=== PATIENT | male | born 1960 | race Two or more races ===

== ENCOUNTER 2017-11-24 14:17 | Inpatient (IN) | payer BC ==
[~2017-11-24] VITALS: Ht 165.1 cm; Wt 75.9 kg
[2017-11-24 14:30] VITALS: BP 135/82
[2017-11-24 14:49] VITALS: BP 135/82
[2017-11-24] MEDS ORDERED: NICOTINE 21MG/24 HR TOPICAL PATCH TD ONE (15:00)
[2017-11-24] MEDS ORDERED: NITROGLYCERIN 0.4 MG SL TAB SL PRN (15:00)
[2017-11-24] MEDS ORDERED: MORPHINE SULFATE 4 MG/ML SYR/VIAL IV PRN (15:00)
[2017-11-24 16:39] VITALS: BP 114/60
[2017-11-24] MEDS ORDERED: LEVOFLOXACIN 500MG 100 ML IV ONE (16:45)
[2017-11-24] MEDS: ALBUTEROL SULF 2.5 MG/0.5ML(0.5%) NEB SOLN NEB SCH (18:00)
[2017-11-24] MEDS: IPRATROPIUM BROM 0.5 MG/2.5ML INH SOL NEB SCH (18:00)
[2017-11-24] MEDS: methylPREDNISolone SOD SUCC 40 MG/ML VL IV SCH (21:44)
[2017-11-24 21:56] VITALS: BP 126/61
[2017-11-24] MEDS ORDERED: ACETAMINOPHEN 325 MG TAB PO ONE (22:15)
[2017-11-24] MEDS ORDERED: TEMAZEPAM 15 MG CAP PO ONE (22:15)
[2017-11-25] MEDS: IPRATROPIUM BROM 0.5 MG/2.5ML INH SOL NEB SCH ×4 (00:53→18:05)
[2017-11-25] MEDS: ALBUTEROL SULF 2.5 MG/0.5ML(0.5%) NEB SOLN NEB SCH ×4 (00:53→18:05)
[2017-11-25] MEDS ORDERED: VANCOMYCIN 1GM/250ML 250 ML IV ONE ×3 (01:00→10:00)
[2017-11-25 03:22] VITALS: BP 114/60
[2017-11-25 05:21] VITALS: BP 118/60
[2017-11-25 06:46] LABS: Hemoglobin 15.1 g/dL (13.5-17.5); Mean Corpuscular Hemoglobin 29.7 pg (28.0-32.0); Mean Corpuscular Hgb Conc. 33.6 g/dL (32.0-36.0); Mean Corpuscular Volume 88.2 fL (80.0-100.0); Platelet Count (auto) 230 10^3/uL (140-450); Red Cell Distribution Width 14.5 % (11.8-14.3); White Blood Cell 5.8 10^3/uL (4.4-10.8)
[2017-11-25 06:49] LABS: Calcium 8.5 mg/dL (8.5-10.1); Potassium 3.7 mmol/L (3.5-5.1)
[2017-11-25 06:57] LABS: Basophils % (manual) 0 (0.0-2.0); Blast Cells 0; Eosinophils % (manual) 0 (0-7); Metamyelocytes % 0; Myelocytes % 0; Promyelocytes % 0; Reactive Lymphocytes 0
[2017-11-25 06:59] LABS: BUN/Creatinine Ratio 14.1
[2017-11-25 08:03] LABS: Band Neutrophils % (manual) 3; Lymphocytes % (manual) 18 (10.0-50.0); Monocytes % (manual) 10 (0-12)
[2017-11-25] MEDS: NICOTINE 21MG/24 HR TOPICAL PATCH TD SCH (09:29)
[2017-11-25] MEDS: methylPREDNISolone SOD SUCC 40 MG/ML VL IV SCH ×2 (09:29→21:51)
[2017-11-25] MEDS: LEVOFLOXACIN 500MG 100 ML IV SCH (09:29)
[2017-11-25 09:40] VITALS: BP 115/70
[2017-11-25 13:00] VITALS: BP 131/95
[2017-11-25 16:19] VITALS: BP 126/68
[2017-11-25 17:42] LABS: INR 1.31 (0.9-1.15); Prothrombin Time 14.3 sec (9.37-12.3)
[2017-11-25 19:25] LABS: Urine Bacteria NONE SEEN /hpf (None Seen); Urine Blood Negative /uL (Negative); Urine Mucus FEW (None Seen); Urine Specific Gravity 1.029 (1.001-1.035); Urine WBC 4 /hpf (0 - 3)
[2017-11-25 21:41] VITALS: BP 129/73
[2017-11-25] MEDS: TEMAZEPAM 15 MG CAP PO PRN (21:52)
[2017-11-26 04:34] VITALS: BP 148/78
[2017-11-26] MEDS: ALBUTEROL SULF 2.5 MG/0.5ML(0.5%) NEB SOLN NEB SCH ×5 (07:03→19:24)
[2017-11-26] MEDS: IPRATROPIUM BROM 0.5 MG/2.5ML INH SOL NEB SCH ×5 (07:03→19:24)
[2017-11-26 07:40] VITALS: BP 127/73
[2017-11-26] MEDS ORDERED: IODIXANOL 320MG/ML 100ML BTL IV ONE (07:41)
[2017-11-26] MEDS ORDERED: LIDOCAINE HCL 2 %PF INJ 10ML AMP IJ ONE (07:41)
[2017-11-26] MEDS ORDERED: MIDAZOLAM HCL 1MG/1ML-2 ML VIAL ONE (08:31)
[2017-11-26] MEDS ORDERED: fentaNYL CITRATE 100 MCG/2 ML VL ONE (08:31)
[2017-11-26] MEDS ORDERED: SODIUM CHL 0.9% 0 ML ONE (08:32)
[2017-11-26] MEDS ORDERED: ANGIOMAX 250 MG VIAL IV ONE (08:36)
[2017-11-26] MEDS: NICOTINE 21MG/24 HR TOPICAL PATCH TD SCH (10:00)
[2017-11-26] MEDS: LEVOFLOXACIN 500MG 100 ML IV SCH (10:32)
[2017-11-26] MEDS: methylPREDNISolone SOD SUCC 40 MG/ML VL IV SCH ×2 (10:32→21:53)
[2017-11-26 12:31] VITALS: BP 140/81
[2017-11-26 17:10] VITALS: BP 150/85
[2017-11-26] MEDS: ACETAMINOPHEN 325 MG TAB PO PRN (17:58)
[2017-11-26] MEDS: TEMAZEPAM 15 MG CAP PO PRN (21:53)
[2017-11-26 22:00] VITALS: BP 145/86
[2017-11-27 05:00] VITALS: BP 135/88
[2017-11-27] MEDS: IPRATROPIUM BROM 0.5 MG/2.5ML INH SOL NEB SCH ×3 (06:12→13:00)
[2017-11-27] MEDS: ALBUTEROL SULF 2.5 MG/0.5ML(0.5%) NEB SOLN NEB SCH ×3 (06:12→13:00)
[2017-11-27 08:00] VITALS: BP 131/60
[2017-11-27 09:00] VITALS: BP_SYST 131
[2017-11-27] MEDS: methylPREDNISolone SOD SUCC 40 MG/ML VL IV SCH (09:16)
[2017-11-27] MEDS: ACETAMINOPHEN 325 MG TAB PO PRN (09:17)
[2017-11-27] MEDS: LEVOFLOXACIN 500MG 100 ML IV SCH (09:18)
[2017-11-27] MEDS: NICOTINE 21MG/24 HR TOPICAL PATCH TD SCH (09:31)
[2017-11-27 13:00] VITALS: BP 152/99
[2017-11-27 14:28] VITALS: BP 152/99
[2017-12-10] MEDS ORDERED: TEMA30CA PO (02:18)
[2017-12-10] MEDS ORDERED: GABA100C9 PO (02:18)
[2017-12-10] MEDS ORDERED: ALPR0.25 GT (02:19)
== END 2017-11-27 15:30 | disposition home or self-care (01) | DRG 181 ==
LOC: TELE-EAST 14:17
PROVIDERS: ADMIT Internal Medicine Cardiovascular Disease; ATTEND Internal Medicine Cardiovascular Disease
PROC: 4A023N7 Measurement of Cardiac Sampling and Pressure, Left Heart, Percutaneous Approach (ICD-10-PCS; principal; 2017-11-26)
PROC: B2111ZZ Fluoroscopy of Multiple Coronary Arteries using Low Osmolar Contrast (ICD-10-PCS; 2017-11-26)
PROC: B2151ZZ Fluoroscopy of Left Heart using Low Osmolar Contrast (ICD-10-PCS; 2017-11-26)
PROC: B41J1ZZ Fluoroscopy of Other Lower Arteries using Low Osmolar Contrast (ICD-10-PCS; 2017-11-26)
DX: C34.90 Malignant neoplasm of unspecified part of unspecified bronchus or lung (principal); E87.1 Hypo-osmolality and hyponatremia; E78.5 Hyperlipidemia, unspecified; I10 Essential (primary) hypertension; I25.10 Atherosclerotic heart disease of native coronary artery without angina pectoris; I73.9 Peripheral vascular disease, unspecified; J20.9 Acute bronchitis, unspecified; J43.9 Emphysema, unspecified; F17.200 Nicotine dependence, unspecified, uncomplicated
CPT/HCPCS: 36415; 71045; 71260; 80048; 81001; 83935; 85007; 85027; 85610; 86850; 86900; 86901; 87040; 93005; 93458; 94640; 99152; J1956; J2250; Q9967

== ENCOUNTER → 2017-11-24 | Outpatient (CLI) | payer BC ==
[~2017-11-24] MED LIST: ALPR0.25 GT; GABA100C9 PO; IOHEXOL 300 MG/ML 100ML BOTTLE IJ ONE; TEMA30CA PO
[2017-11-24 16:15] LABS: Basophils # (auto) 0.1 uL; Basophils % (auto) 0.8 % (0.0-2.0); Eosinophils # (auto) 0 uL; Eosinophils % (auto) 0.1 % (0.0-7.0); Hematocrit 43.4 % (41.0-53.0); Hemoglobin 14.6 g/dL (13.5-17.5); Lymphocytes # (auto) 1.3 uL; Lymphocytes % (auto) 13.4 % (10.0-50.0); Mean Corpuscular Hemoglobin 29.8 pg (28.0-32.0); Mean Corpuscular Hgb Conc. 33.6 g/dL (32.0-36.0); Mean Corpuscular Volume 88.6 fL (80.0-100.0); Monocytes # (auto) 1.5 uL; Monocytes % (auto) 14.6 % (0.0-12.0); Neutrophils # (auto) 7.1 uL; Neutrophils % (auto) 71.1 % (37.0-80.0); Nucleated Red Blood Cells % 0.1 %; Platelet Count (auto) 247 10^3/uL (140-450); Red Cell Distribution Width 14.2 % (11.8-14.3)
[2017-11-24 16:16] LABS: Albumin 2.6 g/dL (3.4-5.0); BUN/Creatinine Ratio 10.1; Bilirubin, Direct 0.9 mg/dL (0-0.2); Bilirubin, Total 1.4 mg/dL (0.2-1.0); Calcium 7.9 mg/dL (8.5-10.1); Potassium 3.5 mmol/L (3.5-5.1); Total Protein 6.5 g/dL (6.4-8.2)
== END | disposition home or self-care (01) ==
LOC: Rad HDHVI 11:36
PROVIDERS: ATTEND Internal Medicine Cardiovascular Disease
DX: I70.0 Atherosclerosis of aorta (principal); I10 Essential (primary) hypertension; E78.5 Hyperlipidemia, unspecified; D64.9 Anemia, unspecified; E03.9 Hypothyroidism, unspecified; E11.9 Type 2 diabetes mellitus without complications; K74.1 Hepatic sclerosis
CPT/HCPCS: 36415; 71046; 80048; 80061; 80076; 83036; 84443; 85025; Q9967

== ENCOUNTER → 2017-12-07 | Outpatient (CLI) | payer BC ==
[~2017-12-07] MED LIST changes: -IOHEXOL 300 MG/ML 100ML BOTTLE IJ ONE
== END | disposition home or self-care (01) ==
LOC: Rad HDHVI 14:04
PROVIDERS: ATTEND Internal Medicine Cardiovascular Disease
DX: M79.675 Pain in left toe(s) (principal); I11.0 Hypertensive heart disease with heart failure; I50.22 Chronic systolic (congestive) heart failure; E78.5 Hyperlipidemia, unspecified; E11.9 Type 2 diabetes mellitus without complications; E03.9 Hypothyroidism, unspecified; Z87.891 Personal history of nicotine dependence
CPT/HCPCS: 93926

== ENCOUNTER 2017-12-08 23:42 | Emergency (ER) | payer BC ==
[~2017-12-08] VITALS: Ht 172.7 cm; Wt 72.6 kg
[2017-12-09 00:05] VITALS: BP 162/99
[2017-12-09] MEDS ORDERED: HEPARIN DRIP/D5W 100UNITS/ML 250 ML IV SCH (01:23)
[2017-12-09] MEDS ORDERED: NITROGLYCERIN 0.4 MG SL TAB SL PRN (01:30)
[2017-12-09] MEDS ORDERED: HEPARIN IN NS 1000U/500ML (2UNIT/ML) 500 ML BAG/KIT IV ONE (01:30)
[2017-12-09] MEDS ORDERED: MORPHINE SULFATE 4 MG/ML SYR/VIAL IV PRN (01:30)
[2017-12-09] MEDS ORDERED: MEPERIDINE HCL (25 MG/ML) 1ML VIAL IV PRN (01:30)
[2017-12-09] MEDS ORDERED: ALBUTEROL SULF 2.5 MG/0.5ML(0.5%) NEB SOLN NEB SCH (01:30)
[2017-12-09] MEDS ORDERED: NICOTINE 14 MG/24HR TOPICAL PATCH TD SCH (10:00)
[2017-12-10] MEDS ORDERED: GABA100C9 PO (02:18)
[2017-12-10] MEDS ORDERED: TEMA30CA PO (02:18)
[2017-12-10] MEDS ORDERED: ALPR0.25 GT (02:19)
== END 2017-12-09 06:26 | disposition left against medical advice (07) ==
LOC: ER 23:42
DX: M79.672 Pain in left foot (principal); Z53.21 Procedure and treatment not carried out due to patient leaving prior to being seen by health care provider
CPT/HCPCS: 71045; 73630

== ENCOUNTER → 2017-12-09 | Outpatient (CLI) | payer BC ==
[~2017-12-09] MED LIST changes: +SODIUM CHLORIDE 0.9% 100 ML IV SCH
[2017-12-09 17:30] VITALS: BP 155/98
[2017-12-09 19:00] VITALS: BP 147/96
== END | disposition home or self-care (01) ==
LOC: CHF HDHVI 08:00
PROVIDERS: ATTEND Internal Medicine Cardiovascular Disease
DX: C34.11 Malignant neoplasm of upper lobe, right bronchus or lung (principal); I73.9 Peripheral vascular disease, unspecified; I11.0 Hypertensive heart disease with heart failure; I50.22 Chronic systolic (congestive) heart failure; E11.9 Type 2 diabetes mellitus without complications; E78.5 Hyperlipidemia, unspecified; E03.9 Hypothyroidism, unspecified; I25.10 Atherosclerotic heart disease of native coronary artery without angina pectoris; J43.9 Emphysema, unspecified; D68.59 Other primary thrombophilia; F17.210 Nicotine dependence, cigarettes, uncomplicated; Z86.718 Personal history of other venous thrombosis and embolism
CPT/HCPCS: 96360; G0463

== ENCOUNTER → 2017-12-29 | Outpatient (CLI) | payer BC ==
[~2017-12-29] MED LIST changes: -SODIUM CHLORIDE 0.9% 100 ML IV SCH
== END | disposition home or self-care (01) ==
LOC: Rad HDHVI 15:10
PROVIDERS: ATTEND Internal Medicine Cardiovascular Disease
DX: I11.0 Hypertensive heart disease with heart failure (principal); I50.22 Chronic systolic (congestive) heart failure; E11.9 Type 2 diabetes mellitus without complications; E78.5 Hyperlipidemia, unspecified; F17.200 Nicotine dependence, unspecified, uncomplicated; J44.9 Chronic obstructive pulmonary disease, unspecified
CPT/HCPCS: 93306

== ENCOUNTER → 2018-01-04 | Outpatient (CLI) | payer BC | END | disposition home or self-care (01) | LOC: Rad HDHVI 08:39 | PROVIDERS: ATTEND Internal Medicine Cardiovascular Disease | DX: I11.0 Hypertensive heart disease with heart failure (principal); I50.22 Chronic systolic (congestive) heart failure; R53.83 Other fatigue; E78.5 Hyperlipidemia, unspecified; E11.9 Type 2 diabetes mellitus without complications; J44.9 Chronic obstructive pulmonary disease, unspecified; E03.9 Hypothyroidism, unspecified | CPT/HCPCS: 93880 ==

== ENCOUNTER 2018-09-26 23:21 | Inpatient (IN) | payer BC ==
[~2018-09-26] VITALS: Ht 175.3 cm; Wt 71.3 kg
[2018-09-27] VITALS (7 sets, daily range): BP systolic 105–136; BP diastolic 61–87
[2018-09-27 00:22] LABS: Basophils # (auto) 0 uL; Basophils % (auto) 0.3 % (0.0-2.0); Eosinophils # (auto) 0 uL; Hematocrit 54.4 % (41.0-53.0); Hemoglobin 18.3 g/dL (13.5-17.5); Lymphocytes # (auto) 1.3 uL; Lymphocytes % (auto) 7.2 % (10.0-50.0); Mean Corpuscular Hemoglobin 29.6 pg (28.0-32.0); Mean Corpuscular Hgb Conc. 33.7 g/dL (32.0-36.0); Monocytes # (auto) 1.5 uL; Monocytes % (auto) 8.2 % (0.0-12.0); Neutrophils # (auto) 15.4 uL; Neutrophils % (auto) 84.3 % (37.0-80.0); Platelet Count (auto) 241 10^3/uL (140-450); Red Blood Cells 6.18 10^6/uL (4.5-5.90); Red Cell Distribution Width 14.1 % (11.8-14.3); White Blood Cell 18.3 10^3/uL (4.4-10.8)
[2018-09-27 00:36] LABS: INR 0.97 (0.9-1.15); Partial Thromboplastin Time 45.3 sec (23.78-33.04); Prothrombin Time 10.4 sec (9.27-12.13)
[2018-09-27 00:38] LABS: Alanine Aminotransferase 31 U/L (16-61); Albumin 3.5 g/dL (3.4-5.0); Anion Gap 12 (5-15); Aspartate Aminotransferase 23 U/L (15-37); BUN/Creatinine Ratio 11.5; Blood Urea Nitrogen 14 mg/dL (7-18); Calcium 9.3 mg/dL (8.5-10.1); Carbon Dioxide 23 mmol/L (21-32); Chloride 94 mmol/L (98-107); GFR African American > 60 mL/min; GFR Non-African American > 60 mL/min; Glucose 121 mg/dL (74-106); Magnesium 2.2 mg/dL (1.6-2.6); Potassium 4.4 mmol/L (3.5-5.1); Sodium 129 mmol/L (136-145)
[2018-09-27 00:45] LABS: Alkaline Phosphatase 131 U/L (45-117); Bilirubin, Total 0.7 mg/dL (0.2-1.0); Total Protein 8.6 g/dL (6.4-8.2)
[2018-09-27] MEDS ORDERED: LIDOCAINE 1% HCL (LOCAL ANESTH.) INJ 20ML MDV ID ONE ×2 (01:00)
[2018-09-27] MEDS ORDERED: MORPHINE SULFATE 10 MG/ML INJ 1ML SDV IV PRN (04:00)
[2018-09-27] MEDS ORDERED: ALBUTEROL SULF 2.5 MG/0.5ML(0.5%) NEB SOLN NEB PRN (05:15)
[2018-09-27] MEDS: SODIUM CHLORIDE 0.9% 1,000 ML IV SCH ×2 (05:23→06:27)
[2018-09-27] MEDS ORDERED: methylPREDNISolone SOD SUCC 40 MG/ML VL IV SCH (06:00)
[2018-09-27] MEDS ORDERED: methylPREDNISolone SOD SUCC 125 MG/2 ML VL IV ONE (06:00)
[2018-09-27] MEDS: IPRATROPIUM BROM 0.5 MG/2.5ML INH SOL NEB SCH ×4 (06:22→23:42)
[2018-09-27] MEDS: ALBUTEROL SULF 2.5 MG/0.5ML(0.5%) NEB SOLN NEB SCH ×4 (06:23→23:42)
[2018-09-27] MEDS: DOXYCYCLINE 100MG/250ML 250 ML IV SCH ×2 (06:25→17:48)
[2018-09-27] MEDS: GABAPENTIN 100 MG CAP PO SCH ×3 (06:26→22:28)
[2018-09-27 06:55] LABS: Lactic Acid w/Reflex 2.6 mmol/L (0.4-2.0)
--- NOTE | 2018-09-27 08:45 | NUR ---
Telemetry admit from ER JACOBCARLOS A admitted to Telemetry unit after report received from ER nurse. Patient oriented to TIM PETTIT RN primary RN, unit, room, bed, and unit policies regarding patient care and visiting hours. Patient now on continuous telemetry monitoring. Patient placed on bedside oxygen, weighed by bedscale and encouraged to call if they need something. All questions and concerns addressed, patient verbalized understanding. Spoke with family regarding patient's admission. Will continue to monitor.
[2018-09-27] MEDS: ASPirin-EC 81 mg tab PO SCH (11:09)
[2018-09-27] MEDS: methylPREDNISolone SOD SUCC 40 MG/ML VL IV SCH ×2 (14:19→22:27)
--- NOTE | 2018-09-27 15:38 | NUR ---
Re: at bedside Dr. Nuno at bedside. Instructed patient on the plan of care with patient and this RN. New orders given, will put in and implement.
--- NOTE | 2018-09-27 17:35 | NUR ---
Re: Medication Reconciliation Patient is unaware of medications that he takes at home. Patient prefers me to speak with his . does not know for sure the names of medications at this time. Patient's states that she will bring in a list tomorrow.
[2018-09-27] MEDS ORDERED: ASPI81TA27 PO (18:00)
--- NOTE | 2018-09-27 18:49 | NUR ---
Closing shift note Patient is currently resting in bed with at bedside. Patient's breathing has become less labored. Patient denies pain at this time. Will endorse care to the maintenance mechanic 2nd shift RN.
--- NOTE | 2018-09-28 01:30 | NUR ---
PATIENT IS HAVING NEW ONSET OF ACCELERATED JUNCTIONAL WITH HEART RATE AT 65. PATIENT IS ASYMPTOMATIC, BP IS 131/95, O2 IS 93% ON 3 LITERS NASAL CANNULA, AND TEMP IS 97.6. NO COMPLAINTS OF CHEST PAIN OR SHORTNESS OF BREATH. 12 LEAD ECG COMPLETE. PAGE WAS SENT TO HOSPITALIST. WILL CONTINUE TO MONITOR.
[2018-09-28 05:00] VITALS: BP 137/82
[2018-09-28] MEDS: IPRATROPIUM BROM 0.5 MG/2.5ML INH SOL NEB SCH ×3 (05:43→19:18)
[2018-09-28] MEDS: ALBUTEROL SULF 2.5 MG/0.5ML(0.5%) NEB SOLN NEB SCH ×3 (05:43→19:18)
[2018-09-28] MEDS: methylPREDNISolone SOD SUCC 40 MG/ML VL IV SCH ×3 (05:49→22:01)
[2018-09-28] MEDS: DOXYCYCLINE 100MG/250ML 250 ML IV SCH ×2 (05:49→18:12)
[2018-09-28] MEDS: GABAPENTIN 100 MG CAP PO SCH ×3 (05:50→22:01)
[2018-09-28 06:41] LABS: Basophils # (auto) 0 uL; Basophils % (auto) 0.2 % (0.0-2.0); Eosinophils # (auto) 0 uL; Hematocrit 51.6 % (41.0-53.0); Hemoglobin 17.6 g/dL (13.5-17.5); Lymphocytes # (auto) 1.1 uL; Lymphocytes % (auto) 6.1 % (10.0-50.0); Mean Corpuscular Hgb Conc. 34.1 g/dL (32.0-36.0); Mean Corpuscular Volume 88.1 fL (80.0-100.0); Monocytes # (auto) 1.2 uL; Monocytes % (auto) 6.7 % (0.0-12.0); Nucleated Red Blood Cells % 0.2 %; Platelet Count (auto) 204 10^3/uL (140-450); Red Blood Cells 5.86 10^6/uL (4.5-5.90); Red Cell Distribution Width 13.9 % (11.8-14.3); White Blood Cell 17.2 10^3/uL (4.4-10.8)
--- NOTE | 2018-09-28 07:30 | NUR ---
Opening Shift Note Assuming care of patient. Patient is awake, alert, and oriented x4. Patient denies pain. Patient shows no signs or symptoms of distress. Patient is in bed with bed locked and lowered with side rails x2. Instructed patient on the plan of care and to call for assistance as needed. Call light within reach. Will continue to monitor.
[2018-09-28 07:35] LABS: Chloride 99 mmol/L (98-107); Potassium 4.3 mmol/L (3.5-5.1); Sodium 132 mmol/L (136-145)
[2018-09-28 07:42] LABS: Anion Gap 8 (5-15); BUN/Creatinine Ratio 28.2; Blood Urea Nitrogen 29 mg/dL (7-18); Calcium 9.2 mg/dL (8.5-10.1); Carbon Dioxide 25 mmol/L (21-32); GFR African American > 60 mL/min; GFR Non-African American > 60 mL/min; Glucose 153 mg/dL (74-106)
--- NOTE | 2018-09-28 08:30 | NUR ---
Re: Call from radiology Radiologist, Dr. Bañuelos, called to verbalize his findings. Patient's pneumothorax has increased from 30% to 50%. Will notify Dr. Nuno.
[2018-09-28 09:00] VITALS: BP 123/76
--- NOTE | 2018-09-28 09:00 | NUR ---
Call to Dr. Chelo Nuno to notify him of radiologist's findings. Awaiting callback.
--- NOTE | 2018-09-28 09:15 | NUR ---
Re: Call to OR Called OR to ask about suction devices for the uracil thoravent that patient has in place. OR is unaware of device and attachment pieces at this time.
--- NOTE | 2018-09-28 09:36 | NUR ---
Re: Dr. Chelo Nuno is aware of increasing pneumothorax. New orders given, will implement.
--- NOTE | 2018-09-28 10:10 | NUR ---
Re: Radiologist on floor Dr. Bañuelos in patient room to determine if suction can be applied to chest device. He examined equipment available in room and states he will be back to further assess. Will await orders.
[2018-09-28] MEDS: ASPirin-EC 81 mg tab PO SCH (10:12)
--- NOTE | 2018-09-28 10:25 | NUR ---
Re: Radiologist Dr. Bañuelos back on floor to give proper connecting devices in order to connect patient's device to suction.
--- NOTE | 2018-09-28 10:30 | NUR ---
Re: Surgical Consult Dr. Torres at bedside discussing patient's plan of care with patient and this RN. New orders given, will implement.
[2018-09-28 11:56] LABS: INR 0.9 (0.9-1.15); Prothrombin Time 9.7 sec (9.27-12.13)
--- NOTE | 2018-09-28 12:10 | NUR ---
Re: [facility] Request Spoke with licensing representative in records department. Was given fax number in order to request medical records. Will fax.
--- NOTE | 2018-09-28 12:24 | NUR ---
Re: Fax to [place] Sent request for medical records at this time. Will call to ensure fax was received.
--- NOTE | 2018-09-28 12:31 | NUR ---
Re: Call to [facility] Called to follow-up on sent fax. Will call again to verify.
[2018-09-28] MEDS: SODIUM CHLORIDE 0.9% 1,000 ML IV SCH ×2 (12:37→20:15)
[2018-09-28 13:00] VITALS: BP 127/63
--- NOTE | 2018-09-28 13:20 | NUR ---
Re: Call to [facility] No answer at this time. Will call back.
--- NOTE | 2018-09-28 13:55 | NUR ---
Re: Call to [facility] Fax was not received. Will resend to alternate fax number.
--- NOTE | 2018-09-28 14:14 | NUR ---
Re: Fax received Call to [facility]. Fax was received and they will send fax with patient's information.
--- NOTE | 2018-09-28 15:00 | NUR ---
Re: [facility] Received medical records from [facility] at this time. Will place in front of chart.
[2018-09-28 17:00] VITALS: BP 154/98
--- NOTE | 2018-09-28 19:15 | NUR ---
OPEN SHIFT NOTE PATIENT IS ALERT AND ORIENTED X4 ON 3L NASAL CANULA. IV 20 GAUGE IS INTACT. PATIENT HAS NO COMPLAINTS OF PAIN. POC DISCUSSED AND QUESTIONS ANSWERED. BED IS LOCKED IN LOWEST POSITION WITH SIDE RAILS UP X2 FOR SAFETY, AND CALL LIGHT IS WITHIN REACH. WILL CONTINUE TO ROUND Q 1 HR AND PRN.
--- NOTE | 2018-09-28 19:32 | NUR ---
Closing Shift Note Patient is resting in bed. Patient denies pain and does not show any signs or symptoms of distress or shortness of breath. Will endorse care to the hourly shift manager RN.
[2018-09-28 22:00] VITALS: BP 149/85
[2018-09-29] MEDS: IPRATROPIUM BROM 0.5 MG/2.5ML INH SOL NEB SCH ×4 (00:46→18:16)
[2018-09-29] MEDS: ALBUTEROL SULF 2.5 MG/0.5ML(0.5%) NEB SOLN NEB SCH ×4 (00:46→18:16)
[2018-09-29 05:00] VITALS: BP 118/63
[2018-09-29] MEDS: GABAPENTIN 100 MG CAP PO SCH ×3 (06:00→21:48)
[2018-09-29] MEDS: DOXYCYCLINE 100MG/250ML 250 ML IV SCH (06:16)
[2018-09-29] MEDS: methylPREDNISolone SOD SUCC 40 MG/ML VL IV SCH ×3 (06:16→21:45)
--- NOTE | 2018-09-29 07:22 | NUR ---
OPENING SHIFT NOTE/OFF UNIT ASSUMED CARE OF PATIENT. NO S/S OF DISTRESS OR SOB NOTED. PATIENT READY FOR PROCEDURE. PATIENT TAKEN DOWN AT THIS TIME. AWAITING PATIENTS RETURN TO UNIT.
--- NOTE | 2018-09-29 07:23 | NUR ---
Respiratory note:MED NEB TX HELD: PATIENT IS NOT IN ROOM AT THIS TIME. WILL CORRELATE WITH DAY SHIFT RN TO LOCATE AND TX AND ASESS.
[2018-09-29] MEDS ORDERED: ceFAZolin 1GM/50ML 50 ML IV ONE (07:39)
[2018-09-29] MEDS ORDERED: GLYCOPYRROLATE 0.2 MG/ML 1ML VIAL IV ONE (08:25)
[2018-09-29] MEDS ORDERED: NEOSTIGMINE 1 MG/ML INJ (10mg/10ML VIAL) IV ONE (08:25)
[2018-09-29] MEDS ORDERED: fentaNYL CITRATE 100 MCG/2 ML VL ONE (08:28)
[2018-09-29] MEDS ORDERED: MIDAZOLAM HCL 1MG/1ML-2 ML VIAL ONE (08:28)
[2018-09-29] MEDS ORDERED: ROCURONIUM 10MG/ML 10ML VIAL IV ONE (08:28)
[2018-09-29] MEDS ORDERED: PROPOFOL 10 MG/ML 20 ML IV ONE (08:30)
[2018-09-29] MEDS ORDERED: ONDANSETRON HCL 4 MG/2 ML VIAL IV ONE (09:30)
[2018-09-29] MEDS ORDERED: hydrALAZINE HCL 20 MG/ML VL IV PRN (09:30)
[2018-09-29] MEDS ORDERED: ePHEDrine SULFATE 50 MG/ML AMP IV PRN (09:30)
[2018-09-29] MEDS: HYDROmorphone HCL 2 MG/ML VL IV PRN ×4 (09:30→17:27)
[2018-09-29] MEDS: SODIUM CHLORIDE 0.9% 1,000 ML IV SCH (09:35)
[2018-09-29] MEDS ORDERED: LABETALOL HCL 5 MG/ML 4ML SYRINGE IV ONE (09:57)
[2018-09-29] MEDS: ASPirin-EC 81 mg tab PO SCH (10:00)
[2018-09-29] MEDS ORDERED: HYDROmorphone HCL 2 MG/ML VL IV ONE (10:00)
--- NOTE | 2018-09-29 11:00 | NUR ---
PATIENT RETURN TO UNIT PATIENT RETURNED TO UNIT AT THIS TIME. PATIENT AWAKE AND ALERT LAYING IN BED. NO S/S OF DISTRESS OR SOB NOTED. CHEST TUBE NOTED TO RIGHT SIDE, TEGADERM SLIGHTLY PULLED UP, PLACED SECONDARY TEGADERM TO SECURE IN PLACE. PLACED OIL EMULSION DRESSING AT BEDSIDE AT THIS TIME. SLIGHT SEROUS DRAINAGE NOTED TO GAUZE SURROUNDING CHEST TUBE, MARKED FOR REFERENCE. PATIENT C/O PAIN 8/10 AT INSERTION SITE. RESPIRATIONS EVEN AND UNLABORED. TAPED CHEST TUBE CANISTER TO FLOOR TO PREVENT TIPPING. VS WITHIN NORMAL RANGE. WILL CONTINUE TO MONITOR.
--- NOTE | 2018-09-29 12:48 | NUR ---
Respiratory note:MED NEB TX REFUSED: REFUSE TX AT THIS TIME, PATIENT WOULD LIKE TO CONTINUE RESTING AT THIS TIME, NO SOB PER PT, NO APPARENT RESP DISTRESS NOTED, SPO2 96% @ 2 L NC, HR 82, RR 16, B/S FINE CRACKLES RUTH T/O. WILL CONTINUE TO MONITOR PATIENT T/O DAY. RN AWARE JOSH GUTIERREZ OF REFUSAL.
[2018-09-29] MEDS: HYDROcodone-ACET 5/325MG TAB PO PRN (13:01)
[2018-09-29 17:26] VITALS: BP 151/80
--- NOTE | 2018-09-29 19:05 | NUR ---
END OF SHIFT NOTE PATIENT RESTING COMFORTABLY IN BED, NO S/S OF DISTRESS OR SOB. RESPIRATIONS EVEN AND UNLABORED AND PATIENT ON ROOM AIR. TOTAL OUTPUT DURING SHIFT OF SANGUINOUS FLUID VIA CHEST TUBE 65MLS. CHEST TUBE CONTINUING ON LOW CONTINUOUS SUCTION. OIL EMULSION DRESSING AND TAPE AT BEDSIDE. BED IN LOWEST LOCKED POSITION, CALL LIGHT WITHIN REACH. WILL ENDORSE CARE TO NOC RN.
--- NOTE | 2018-09-29 19:30 | NUR ---
Opening Shift Note Assumed care of patient, awake and alert. No S/S of distress/SOB or pain. Instructed on POC and to call for assist PRN, will continue to monitor for changes Q1hr and PRN.Chest tube in placed in the right side of the lung to low continous suction neg.20.
[2018-09-29 22:00] VITALS: BP 152/91
[2018-09-30] MEDS: HYDROmorphone HCL 2 MG/ML VL IV PRN ×4 (01:08→19:46)
[2018-09-30] MEDS: SODIUM CHLORIDE 0.9% 1,000 ML IV SCH ×2 (01:30→18:39)
--- NOTE | 2018-09-30 05:13 | NUR ---
Refused to check his vital signs, makes him mad.
[2018-09-30] MEDS: GABAPENTIN 100 MG CAP PO SCH ×3 (05:24→22:50)
[2018-09-30] MEDS: methylPREDNISolone SOD SUCC 40 MG/ML VL IV SCH ×3 (05:24→22:49)
--- NOTE | 2018-09-30 05:34 | NUR ---
PT refused V/S @0500, RN was notified.
[2018-09-30] MEDS: DOXYCYCLINE 100MG/250ML 250 ML IV SCH ×2 (05:39→18:39)
--- NOTE | 2018-09-30 07:23 | NUR ---
Report given to Bart Michaud to assume care, patient is resting not in distress.
--- NOTE | 2018-09-30 07:30 | NUR ---
OPENING SHIFT NOTE ASSUMED CARE OF PATIENT. PATIENT RESTING COMFORTABLY IN BED WITH EYES CLOSED. RESPIRATIONS EVEN AND UNLABORED. BED IN LOWEST LOCKED POSITION, CALL LIGHT WITHIN REACH. CHEST TUBE NOTED TO HAVE DRAINAGE AT INSERTION SITE, WILL CONTINUE TO MONITOR. TOTAL AT SHIFT CHANGE NOTED TO BE 175ML OF SEROUS FLUID. CONTINUING TO MONITOR.
[2018-09-30 07:35] LABS: Basophils # (auto) 0 uL; Basophils % (auto) 0.1 % (0.0-2.0); Eosinophils # (auto) 0 uL; Hematocrit 48.2 % (41.0-53.0); Hemoglobin 16.1 g/dL (13.5-17.5); Lymphocytes # (auto) 0.8 uL; Lymphocytes % (auto) 7.7 % (10.0-50.0); Mean Corpuscular Hemoglobin 29.9 pg (28.0-32.0); Mean Corpuscular Hgb Conc. 33.5 g/dL (32.0-36.0); Mean Corpuscular Volume 89.2 fL (80.0-100.0); Monocytes # (auto) 0.9 uL; Neutrophils # (auto) 8.3 uL; Neutrophils % (auto) 83.2 % (37.0-80.0); Platelet Count (auto) 193 10^3/uL (140-450); Red Cell Distribution Width 14.1 % (11.8-14.3)
[2018-09-30] MEDS: IPRATROPIUM BROM 0.5 MG/2.5ML INH SOL NEB SCH ×3 (07:36→18:44)
[2018-09-30] MEDS: ALBUTEROL SULF 2.5 MG/0.5ML(0.5%) NEB SOLN NEB SCH ×3 (07:36→18:44)
[2018-09-30 09:00] VITALS: BP 128/90
[2018-09-30] MEDS: ASPirin-EC 81 mg tab PO SCH (10:04)
--- NOTE | 2018-09-30 10:25 | NUR ---
AT BEDSIDE DR RUIZ AT BEDSIDE AT THIS TIME. MD ADDRESSED LEAK AND DRAINAGE AT DRESSING SITE, REMOVED DRESSINGS AT THIS TIME, NO NEW ORDERS. DRESSING CHANGED. PATIENT TOLERATED WELL. CONTINUING TO MONITOR.
--- NOTE | 2018-09-30 12:09 | NUR ---
Respiratory note:MED NEB TX REFUSED: REFUSE TX AT THIS TIME, PATIENT WOULD LIKE TO CONTINUE EATING AT THIS TIME, NO SOB PER PT, NO APPARENT RESP DISTRESS NOTED, SPO2 96% @ 2 L NC, HR 82, RR 16, B/S FINE CRACKLES RUTH T/O. WILL CONTINUE TO MONITOR PATIENT T/O DAY.
--- NOTE | 2018-09-30 12:40 | NUR ---
Nutrition Assessment Notes please see attached link for complete assessment Est. Needs BW [id number] kcal (23-25 kcal/kgBW), 80-96 gms pro (1.0-1.2 gms/kgBW). Will continue to monitor pertinent labs and reassess nutrient need prn Addendum: 09/30/18 at [address] Amended: Links added.
[2018-09-30 13:00] VITALS: BP 127/77
--- NOTE | 2018-09-30 13:46 | NUR ---
AMBULATING PATIENT UP AMBULATING AROUND NURSES STATION AT THIS TIME. GAIT IS STABLE, NO S/S OF SOB NOTED. CONTINUING TO MONITOR.
[2018-09-30 15:47] VITALS: BP 127/77
[2018-09-30 17:00] VITALS: BP 138/87
--- NOTE | 2018-09-30 18:41 | NUR ---
END OF SHIFT NOTE PATIENT AWAKE AND ALERT SITTING UP IN BED. NO S/S OF DISTRESS OR SOB NOTED. BED IN LOWEST LOCKED POSITION, CALL LIGHT WITHIN REACH. CHEST TUBE OUTPUT NOTED 50ML OUT DURING SHIFT. WILL ENDORSE CARE TO NOC RN.
--- NOTE | 2018-09-30 19:00 | NUR ---
OPENING SHIFT NOTE Received report from day shift RN. Bedside handoff report was done. Chest tube drainage currently at 250ml. Dressing has minimal drainage on it at this moment. Physician is aware. Chest tube to low intermittent suction. Patient is c/o pain at this time. Will medicate as ordered. No respiratory distress is noted. Bed is in lowest/locked position with side rails up X's 2. Call light is within reach of this patient. Will continue to monitor and round hourly/PRN.
[2018-09-30 21:08] VITALS: BP 175/90
--- NOTE | 2018-09-30 22:00 | NUR ---
ROUNDS Patient refusing medications at this time. He is c/o his roomate and too many people coming in and out of his room. He requested to be put into a different room. Discussed this with head charger. Will be moving patient in bed B for the night. Will continue to monitor and round hourly/PRN.
--- NOTE | 2018-09-30 23:00 | NUR ---
VS REASSESSED BP currently at 186/106. Will notify MD and follow up with new orders.
--- NOTE | 2018-09-30 23:09 | NUR ---
MD NOTIFIED MD notified of consistently elevated blood pressure. New orders obtained and will be implemented.
--- NOTE | 2018-09-30 23:30 | NUR ---
SPOKE WITH PATIENT'S Spoke with patient's . She was informing me that her was upset about the noise the patient in bed B was bringing. I informed her that as of right now I was able to get that patient into a different room. Informed her on POC. She verbalized understanding. Will continue to monitor and round hourly/PRN.
[2018-09-30] MEDS: cloNIDine HCL 0.1 MG TAB PO PRN (23:58)
[2018-10-01] MEDS: SODIUM CHLORIDE 0.9% 1,000 ML IV SCH ×2 (01:35→14:30)
--- NOTE | 2018-10-01 01:48 | NUR ---
PT REFUSED MN TX, NO SIB NOTED
[2018-10-01] MEDS: HYDROmorphone HCL 2 MG/ML VL IV PRN ×4 (02:06→22:30)
--- NOTE | 2018-10-01 05:00 | NUR ---
PATIENT REFUSING VS Patient refusing VS at this time and states that he doesn't want to be bothered.
[2018-10-01] MEDS: GABAPENTIN 100 MG CAP PO SCH ×3 (06:00→22:28)
[2018-10-01] MEDS: methylPREDNISolone SOD SUCC 40 MG/ML VL IV SCH ×3 (06:02→22:28)
[2018-10-01] MEDS: DOXYCYCLINE 100MG/250ML 250 ML IV SCH ×2 (06:03→17:44)
[2018-10-01] MEDS: ALBUTEROL SULF 2.5 MG/0.5ML(0.5%) NEB SOLN NEB SCH ×4 (06:37→20:39)
[2018-10-01] MEDS: IPRATROPIUM BROM 0.5 MG/2.5ML INH SOL NEB SCH ×4 (06:37→20:39)
--- NOTE | 2018-10-01 06:37 | NUR ---
RT NOTE: WAS ADVISED BY NOC THERAPIST THAT PT. STATED TO NOT WAKE HIM UP FOR BREATHING TX. PT. SLEEPING. NO S/S OF RESPIRATORY DISTRESS NOTED.
--- NOTE | 2018-10-01 06:46 | NUR ---
END OF SHIFT CHEST TUBE DRAINAGE Chest tube drainage is at 270 ml of serous fluid. Total output of 20 ml on this shift. Chest tube is intact at this moment and connected to low intermittent suction. No new fluid leakage noted on chest tube gauze from the beginning of shift. Patient reports some pain at this time. No s/s of distress is noted. Will continue to monitor and round hourly/PRN.
[2018-10-01 09:00] VITALS: BP 162/90
[2018-10-01] MEDS: ASPirin-EC 81 mg tab PO SCH (10:11)
[2018-10-01] MEDS: NICOTINE 21MG/24 HR TOPICAL PATCH TD SCH (12:57)
[2018-10-01 13:00] VITALS: BP 185/92
[2018-10-01 17:00] VITALS: BP 159/96
[2018-10-01] MEDS ORDERED: PANTOPRAZOLE 40 MG TAB PO ONE (17:00)
--- NOTE | 2018-10-01 19:43 | NUR ---
RECEIVED PATIENT LYING IN BED, AWAKE, ALERT, ORIENTED X4. NO S/S OF RESPIRATORY DISTRESS, DENIES SOB AND CHEST PAIN. CHEST TUBE DRAINAGE AT 290 ML. ORIENTED ON PLAN OF CARE. BED IS LOCKED AND IN LOWEST LEVEL, SIDE RAILS UP X2, CALL LIGHT WITHIN REACH. WILL CONTINUE TO MONITOR.
--- NOTE | 2018-10-01 19:58 | NUR ---
Respiratory note: PT USING RESTROOM AT THIS TIME, UNABLE TO GIVE MED NEB
--- NOTE | 2018-10-01 20:11 | NUR ---
Respiratory note: PT STILL IN RESTROOM AT THIS TIME, UNABLE TO GIVE MED NEB
--- NOTE | 2018-10-01 20:37 | NUR ---
Respiratory note:PT REFUSE MED NEB AT THIS TIME, PT ANGRY THAT HE WAS ASKED IF HE WANTED ME TO RETURN FOR HIS MED NEB. PT YELLING AT THIS TIME AND SAYS I MESSED UP MY CHANCE TO GIVE HIM A MED NEB
[2018-10-01 21:00] VITALS: BP 207/111
[2018-10-01] MEDS: HYDROcodone-ACET 5/325MG TAB PO PRN (21:07)
[2018-10-01] MEDS: cloNIDine HCL 0.1 MG TAB PO PRN (21:47)
[2018-10-01] MEDS: TEMAZEPAM 15 MG CAP PO PRN (23:04)
[2018-10-02] MEDS: ALBUTEROL SULF 2.5 MG/0.5ML(0.5%) NEB SOLN NEB SCH ×4 (00:37→19:18)
[2018-10-02] MEDS: IPRATROPIUM BROM 0.5 MG/2.5ML INH SOL NEB SCH ×4 (00:37→19:18)
--- NOTE | 2018-10-02 00:38 | NUR ---
Respiratory note: MED NEB HELD AT THIS TIME PER PT NOT WANTING TO BE WOKEN UP
[2018-10-02 04:40] VITALS: BP 144/80
[2018-10-02] MEDS: SODIUM CHLORIDE 0.9% 1,000 ML IV SCH ×2 (05:51→17:35)
[2018-10-02] MEDS: DOXYCYCLINE 100MG/250ML 250 ML IV SCH ×2 (05:51→18:09)
[2018-10-02] MEDS: methylPREDNISolone SOD SUCC 40 MG/ML VL IV SCH ×3 (05:51→21:35)
[2018-10-02] MEDS: GABAPENTIN 100 MG CAP PO SCH ×3 (05:51→21:36)
--- NOTE | 2018-10-02 06:49 | NUR ---
END OF SHIFT CHEST TUBE DRAINAGE CHEST TUBE DRAINAGE IS AT 320 ML. TOTAL OF 30 ML ADDED OVERNIGHT. Addendum: 10/02/18 at 0654 by KENDRA ARGUELLO RN CHEST TUBE IS INTACT CONNECTED TO LOW INTERMITTENT SUCTION, NO NEW FLUID LEAKAGE NOTED ON THE GAUZE.
--- NOTE | 2018-10-02 07:18 | NUR ---
CARE ENDORSED TO AM SHIFT RN
[2018-10-02 08:00] VITALS: BP 152/88
[2018-10-02] MEDS: HYDROcodone-ACET 5/325MG TAB PO PRN ×3 (08:10→21:36)
[2018-10-02 09:00] VITALS: BP 158/88
[2018-10-02] MEDS: HYDROmorphone HCL 2 MG/ML VL IV PRN ×3 (10:13→23:00)
[2018-10-02] MEDS: ASPirin-EC 81 mg tab PO SCH (10:19)
[2018-10-02] MEDS: PANTOPRAZOLE 40 MG TAB PO SCH (10:19)
[2018-10-02] MEDS: NICOTINE 21MG/24 HR TOPICAL PATCH TD SCH (10:21)
[2018-10-02 13:00] VITALS: BP 178/104
[2018-10-02 17:00] VITALS: BP 151/93
--- NOTE | 2018-10-02 17:00 | NUR ---
Pt very angry, yelling at nursing staff. Pt screaming that he "is in a lot of pain", and is "sick and tired of people coming in and out of my room all day long". B/P 151/93 Pulse 156. Pt c/o chest tube insertion site pain. Pt denies or pain or discomfort. No resp distress. Dilaudid given at this time.
--- NOTE | 2018-10-02 17:30 | NUR ---
Heart rate sustaining at 85-90 following administration of Dilaudid.
--- NOTE | 2018-10-02 19:00 | NUR ---
No further episodes of tachycardia. Pt denies pain or discomfort.
--- NOTE | 2018-10-02 19:40 | NUR ---
RECEIVED PATIENT LYING IN BED, AWAKE, ALERT, ORIENTED X4. NO S/S OF RESPIRATORY DISTRESS, DENIES SOB AND CHEST PAIN. CHEST TUBE DRAINAGE AT 350 ML. ORIENTED ON PLAN OF CARE. BED IS LOCKED AND IN LOWEST LEVEL, SIDE RAILS UP X2, CALL LIGHT WITHIN REACH. WILL CONTINUE TO MONITOR.
[2018-10-02 22:00] VITALS: BP 173/97
[2018-10-02] MEDS: TEMAZEPAM 15 MG CAP PO PRN (23:17)
--- NOTE | 2018-10-03 | NUR ---
Respiratory note: PT SLEEPING. PT STATED THAT HE WOULD REFUSE 0000 MED NEB TX IN ORDER TO SLEEP. PT REMAINS STABLE WITH NO RESPIRATORY DISTRESS NOTED WILL CONTINUE TO MONITOR PT ORDERED
[2018-10-03] MEDS: HYDROcodone-ACET 5/325MG TAB PO PRN ×3 (04:43→14:36)
--- NOTE | 2018-10-03 04:47 | NUR ---
PATIENT REFUSED VITAL SIGNS
[2018-10-03] MEDS: DOXYCYCLINE 100MG/250ML 250 ML IV SCH ×2 (05:32→18:53)
[2018-10-03] MEDS: methylPREDNISolone SOD SUCC 40 MG/ML VL IV SCH ×3 (05:32→21:19)
[2018-10-03] MEDS: GABAPENTIN 100 MG CAP PO SCH ×3 (05:33→21:19)
[2018-10-03] MEDS: HYDROmorphone HCL 2 MG/ML VL IV PRN ×2 (05:36→21:19)
[2018-10-03] MEDS: ALBUTEROL SULF 2.5 MG/0.5ML(0.5%) NEB SOLN NEB SCH ×4 (06:00→19:45)
[2018-10-03] MEDS: IPRATROPIUM BROM 0.5 MG/2.5ML INH SOL NEB SCH ×4 (06:00→19:45)
--- NOTE | 2018-10-03 06:00 | NUR ---
Respiratory note: PT REFUSED MN NEB TX AT THIS TIME. HR 80, RR 14, POX 92% ON RA, BS CLEAR AND DIMINISHED. NO RESPIRATORY DISTRESS NOTED AT THIS TIME. WILL CONTINUE TO MONITOR ORDERED.
[2018-10-03] MEDS: SODIUM CHLORIDE 0.9% 1,000 ML IV SCH ×2 (06:04→21:11)
--- NOTE | 2018-10-03 06:32 | NUR ---
END OF SHIFT CHEST TUBE DRAINAGE CHEST TUBE DRAINAGE IS AT 360 ML. TOTAL OF 10 ML ADDED OVERNIGHT. CHEST TUBE IS INTACT CONNECTED TO LOW INTERMITTENT SUCTION, NO NEW FLUID LEAKAGE NOTED
--- NOTE | 2018-10-03 07:42 | NUR ---
CARE ENDORSED TO AM SHIFT RN
--- NOTE | 2018-10-03 07:45 | NUR ---
Morning note patient resting in bed with even and unlabored respirations on 2LPM NC. Chest tube canister in upright position, secured to the floor. Bubbling noted. Patient stated "yeah, the doctor said there's a leak." Tidaling noted. Chest tube placed to 20cm suction per MD's orders. Chest tube dressing to the right lateral chest is clean, dry and intact. Instructed patient on POC, fall precautions and to call for assistance as needed. patient verbalized understanding. Fall precautions in place with call light within reach. Will continue to monitor q1hr & PRN.
[2018-10-03 09:00] VITALS: BP 171/94
[2018-10-03] MEDS: NICOTINE 21MG/24 HR TOPICAL PATCH TD SCH (09:50)
[2018-10-03] MEDS: PANTOPRAZOLE 40 MG TAB PO SCH (09:50)
[2018-10-03] MEDS: ASPirin-EC 81 mg tab PO SCH (09:50)
[2018-10-03 13:00] VITALS: BP 157/103
[2018-10-03 15:40] VITALS: BP 157/103
[2018-10-03] MEDS: cloNIDine HCL 0.1 MG TAB PO PRN (17:28)
--- NOTE | 2018-10-03 17:48 | NUR ---
Bed linens changed Patient requested staff to change bed linens previously in the shift. This RN and ALYSHA Cooley, informed the patient that the bed linens will be changed this shift. Patient verbalized displeasure that the bed linens were not changed earlier in the shift. Patient stated "I did it myself. I stood up and shook them out and then put them back on. I'm good. I've had these sheets for 8 days." This RN informed the patient that bed linen supplies are at bedside now to change linens. Patient verbalized understanding. The bed linens were changed with patient staying in bed. Patient said "thank you" once task was completed. Call light within reach.
--- NOTE | 2018-10-03 17:58 | NUR ---
RE: elevated BP BP 206/107. PRN BP medication administered per MD's orders. Patient stated "I'm angry the doctor hasn't come to see me today. I'm frustrated about the sheets. I'm anxious about the test results." Patient denies anxiety. Instructed patient on stress and relaxation management. Patient verbalized understanding. Addendum: 10/03/18 at 1803 by Chelsy Schroeder RN Notified Dr. Nuno of patient's elevated BP. Ordered to continue to monitor.
--- NOTE | 2018-10-03 18:47 | NUR ---
End of shift patient resting in bed with even and unlabored respirations on 2LPM NC. Chest tube canister in upright position at bedside, secured to floor, placed to 20cm suction per MD's orders. Fall precautions in place with call light within reach. Will endorse care to RN.
--- NOTE | 2018-10-03 18:56 | NUR ---
Chest Tube Output - 25ml
--- NOTE | 2018-10-03 19:19 | NUR ---
Opening Shift Note SBAR report received from BRODY Valentino. Assumed care of patient, awake and alert 4x, resting in bed. No S/S of distress/SOB or pain. Pt has a chest tube to RT. LATERAL WALL. Instructed on POC and to call for assist PRN, will continue to monitor for changes Q1hr and PRN.
[2018-10-03 19:38] LABS: Basophils # (auto) 0 uL; Basophils % (auto) 0.1 % (0.0-2.0); Eosinophils # (auto) 0 uL; Eosinophils % (auto) 0.3 % (0.0-7.0); Hematocrit 49.7 % (41.0-53.0); Hemoglobin 16.4 g/dL (13.5-17.5); Lymphocytes # (auto) 1.3 uL; Lymphocytes % (auto) 7.7 % (10.0-50.0); Mean Corpuscular Hemoglobin 29.2 pg (28.0-32.0); Mean Corpuscular Volume 88.4 fL (80.0-100.0); Monocytes # (auto) 0.7 uL; Neutrophils # (auto) 14.6 uL; Neutrophils % (auto) 87.9 % (37.0-80.0); Platelet Count (auto) 351 10^3/uL (140-450); Red Blood Cells 5.62 10^6/uL (4.5-5.90); Red Cell Distribution Width 14.1 % (11.8-14.3); White Blood Cell 16.6 10^3/uL (4.4-10.8)
[2018-10-03 19:54] LABS: Albumin 2.6 g/dL (3.4-5.0); Calcium 8.3 mg/dL (8.5-10.1); Potassium 4.8 mmol/L (3.5-5.1)
[2018-10-03 20:07] LABS: BUN/Creatinine Ratio 24.2; Bilirubin, Total 0.3 mg/dL (0.2-1.0); Total Protein 6.3 g/dL (6.4-8.2)
[2018-10-03 20:19] VITALS: BP 156/90
[2018-10-03] MEDS: TEMAZEPAM 15 MG CAP PO PRN (21:18)
[2018-10-03 22:00] VITALS: BP 156/90
[2018-10-04 05:00] VITALS: BP 126/76
[2018-10-04] MEDS: GABAPENTIN 100 MG CAP PO SCH ×3 (06:26→21:35)
[2018-10-04] MEDS: DOXYCYCLINE 100MG/250ML 250 ML IV SCH ×2 (06:26→18:31)
[2018-10-04] MEDS: methylPREDNISolone SOD SUCC 40 MG/ML VL IV SCH ×3 (06:26→21:34)
[2018-10-04] MEDS: IPRATROPIUM BROM 0.5 MG/2.5ML INH SOL NEB SCH ×4 (07:00→19:12)
[2018-10-04] MEDS: ALBUTEROL SULF 2.5 MG/0.5ML(0.5%) NEB SOLN NEB SCH ×4 (07:00→19:12)
--- NOTE | 2018-10-04 07:43 | NUR ---
CHEST TUBE OUTPUT= 30 ML
--- NOTE | 2018-10-04 07:44 | NUR ---
CLOSING NOTE SBAR REPORT GIVEN TO ANA SKINNER. PATIENT STABLE, CHEST TUBE INTACT, SAFETY PRECAUTIONS IN PLACE.
[2018-10-04] MEDS ORDERED: IOHEXOL 300 MG/ML 100ML BOTTLE IJ ONE (08:34)
--- NOTE | 2018-10-04 08:35 | NUR ---
RE: Pleural fluid culture This RN called microbiology to receive update on the pleural fluid culture. No active order in place per Medardo in microbiology. Medardo will look to see if the specimen is still available for testing. Medardo to call this RN back.
--- NOTE | 2018-10-04 08:42 | NUR ---
RE: pleural fluid culture Medardo from microbiology notified this RN that the pleural fluid specimen is still available for testing, although it is now [address] Torres to notify.
--- NOTE | 2018-10-04 08:45 | NUR ---
RE: Pleural fluid culture Notified Dr. Nuno via telephone regarding the pleural fluid culture. Telephone orders received and read back to verify.
[2018-10-04 09:00] VITALS: BP 157/94
[2018-10-04] MEDS: PANTOPRAZOLE 40 MG TAB PO SCH (09:00)
[2018-10-04] MEDS: ASPirin-EC 81 mg tab PO SCH (09:00)
[2018-10-04] MEDS: HYDROcodone-ACET 5/325MG TAB PO PRN ×2 (09:01→20:53)
[2018-10-04] MEDS: NICOTINE 21MG/24 HR TOPICAL PATCH TD SCH (09:01)
--- NOTE | 2018-10-04 09:12 | NUR ---
IV removed IV removed with clean technique with catheter intact due to patient c/o pain at IV site. Dressing applied. Patient tolerated well.
--- NOTE | 2018-10-04 09:14 | NUR ---
Notified patient of NPO status Patient instructed to remain NPO for ordered CT. Patient verbalized understanding.
--- NOTE | 2018-10-04 09:17 | NUR ---
Morning note patient resting in bed with even and unlabored respirations on 2LPM NC. Chest tube canister in upright position, secured to the floor. Bubbling noted. MD aware. Tidaling noted. Chest tube placed to 20cm suction per MD's orders. Chest tube dressing to the right lateral chest is clean, dry and intact. Instructed patient on POC, fall precautions and to call for assistance as needed. patient verbalized understanding. Fall precautions in place with call light within reach. Will continue to monitor q1hr & PRN.
--- NOTE | 2018-10-04 09:29 | NUR ---
notified - Dr. Torres Notified Dr. Torres regarding the pleural fluid culture order. verbalized understanding.
[2018-10-04] MEDS: SODIUM CHLORIDE 0.9% 1,000 ML IV SCH ×2 (09:35→23:04)
[2018-10-04] MEDS ORDERED: IOHEXOL 350 MG/ML 100ML IJ ONE (11:21)
--- NOTE | 2018-10-04 11:24 | NUR ---
Patient taken to radiology via wheelchair. IV placed by another [facility] personnel, ruben Izquierdo L.G., radiology transportation supervisor.
[2018-10-04] MEDS: cloNIDine HCL 0.1 MG TAB PO PRN ×2 (12:02→22:31)
[2018-10-04 12:55] VITALS: BP 170/117
--- NOTE | 2018-10-04 14:56 | NUR ---
Updated patient's Patient's called for an update. Password obtained. Updated given. Patient's concerned that "may do something stupid" after being told by Dr. Torres that there is a delay in the pleural fluid culture results. Patient's states "he's been texting me ever since being told and he's really upset. I just don't want him to be mean to you girls." Informed the patient's that Dr. Nuno will be updated and orders will be placed as needed. Patient's verbalized understanding.
--- NOTE | 2018-10-04 15:00 | NUR ---
Contacted MD Contacted Dr. Nuno to notify MD that patient is anxious and upset after finding out by Dr. Torres that the pleural fluid culture results are delayed. No PRN anti-anxiety medications ordered. Informed MD that patient is requesting to be changed to a regular diet. Will wait for orders from MD.
--- NOTE | 2018-10-04 15:27 | NUR ---
was at bedside- Received verbal orders Dr. Nuno was at bedside discussing POC with the patient. Updated Dr. Nuno verbally on patient's status. Verbal order obtained and read back to verify. RN to place order per MD's request.
--- NOTE | 2018-10-04 15:39 | NUR ---
Nutrition Follow-up Notes Wt.: 80.6 kg as of yesterday. Pt's asleep, no immediate family member at bedside during rounds this morning. Pt's s/p Right thoracoscopy with evacuation of empyema (09/29/18), no signs of distress noted earlier, on Consistent Carb diet with adequate PO intake aeb 100% ave. consumed meals (x7) in last 3 days. Noted pt's diet changed to Regular diet, per MD's approval. Est. Needs BW [id number] kcal (23-25 kcal/kgBW), 80-96 gms pro (1.0-1.2 gms/kgBW). Will continue to monitor pertinent labs and reassess nutrient need prn Labs: Gluc 173 H, Na 133 L, BUN 24 H, Ca 8.3 L, Tpro 6.3 L, Alb 2.6 L Skin: Nitin scale 21 mod risk, pt's right chest tube incision dry and intact per air traffic coordinator. GI: Pt had 1 BM 10/02/18 per air traffic coordinator. PES: Altered nutrition related lab values r/t current/chronic medical condition aeb elev BUN, hyperglycemia Will continue to monitor PO intake, skin status, pertinent labs and weight trend. F/u in 3 to 5 days. Rec.: 1.) Continue close supervision during meals. 2.) If Albumin level continues trending down, consider Prostat 1 pkt BID. 3.) If pt's gluc level remains consistently elev., consider to resume Consistent Std. Carb: 60 gms/meal diet. 4.) Refer pt to CDE/RD for further nutrition education and weight monitoring upon discharge. 4.) Continue current plan of care.
--- NOTE | 2018-10-04 15:44 | NUR ---
RE: MD's request for patient to be in private room Patient had c/o being in room with another patient, as well as the traffic in and out of the room. Dr. Nuno instructed this RN to place patient in a private room. This RN notified Farrah extension service specialist in charge. Farrah verbalized understanding. No private rooms are available at this time. Will attempt to place patient in a private room at a later time.
--- NOTE | 2018-10-04 16:43 | NUR ---
RE: patient's voicing frustration Patient voicing frustration regarding the doctors and the pleural fluid culture delay as well as not being moved into B bed instead of an A bed location. Patient states "I've been asking for 5 days now. I've talked to management. I've been asking and no one has done it. It can't be that hard. Click click with the computer and done. You need me to do it?" Advised the patient that all beds have been occupied due to a high patient census although this RN will attempt to transfer patient to B bed location. Patient verbalized understanding. This RN offered the patient the PRN dose anti-anxiety medication ordered by MD. Patient refused. Patient stated "no, I know how to get drugs if I needed them. It's not solving the problem. It's just a bandaide." Advised patient to notify staff if he changes his mind and would like the medication. Patient verbalized understanding. Patient verbalized an apologize at the end of the conversation. Will continue to monitor.
--- NOTE | 2018-10-04 16:47 | NUR ---
RE: quality assurance monitor- refusing patient refusing to have the quality assurance monitor connected at this time. Patient stated "it's fine. I'm not a heart patient. They don't know what they're doing anyways." Educated patient on MD's order. Patient verbalized understanding and continued to refused.
--- NOTE | 2018-10-04 17:48 | NUR ---
Transferred patient to room 297B with all personal belongings. Chest tube canister placed in upright position and secured to the floor. Low continuous suction applied. Patient informed this RN that he will notify his of the room change.
--- NOTE | 2018-10-04 18:50 | NUR ---
End of shift patient resting in bed with even and unlabored respirations on RA. Chest tube canister in upright position at bedside, secured to floor, placed to 20cm suction per MD's orders. Patient denies respiratory and cardiac s/s at this time. Dressing to the right lateral chest is intact. Bubbling continued to be noted in the chest tube chamber. Tidaling noted. End drainage for this shift marked on canister. Fall precautions in place with call light within reach. Will endorse care to RN.
--- NOTE | 2018-10-04 20:00 | NUR ---
assumed care, pt. awake, chest tube in place, no c/o pain, no sob.
[2018-10-04 22:00] VITALS: BP 185/103
[2018-10-04] MEDS: TEMAZEPAM 15 MG CAP PO PRN (22:30)
[2018-10-05] MEDS: IPRATROPIUM BROM 0.5 MG/2.5ML INH SOL NEB SCH ×4 (00:29→18:00)
[2018-10-05] MEDS: ALBUTEROL SULF 2.5 MG/0.5ML(0.5%) NEB SOLN NEB SCH ×4 (00:29→18:00)
--- NOTE | 2018-10-05 00:29 | NUR ---
Respiratory note: PT REFUSED MED NEB AT THIS TIME. PT HAD ASKED PREVIOUS ROUNDS NOT TO BE AWAKEN FOR MED NEB TX AT THIS TIME. NO RESP DISTRESS OBSERVED. PT AWARE TO HAVE RT PAGED IF NEEDED.
[2018-10-05] MEDS: HYDROmorphone HCL 2 MG/ML VL IV PRN (04:50)
--- NOTE | 2018-10-05 05:22 | NUR ---
Respiratory note: RN CALLED TO INFORM SHE TOOK PATIENT OFF CPAP AT 0522. PT IS ON R/A.
--- NOTE | 2018-10-05 05:22 | NUR ---
Respiratory note: DISREGARD NOTE @0522, WRONG PT.
[2018-10-05 05:30] VITALS: BP 190/103
[2018-10-05] MEDS: methylPREDNISolone SOD SUCC 40 MG/ML VL IV SCH ×4 (05:53→21:20)
[2018-10-05] MEDS: cloNIDine HCL 0.1 MG TAB PO PRN ×2 (05:53→14:11)
[2018-10-05] MEDS: DOXYCYCLINE 100MG/250ML 250 ML IV SCH ×2 (05:53→18:00)
--- NOTE | 2018-10-05 06:00 | NUR ---
pt. refusing to check his bp, pt. has an attitude, no c/o pain at this time, not in distress.
[2018-10-05] MEDS: GABAPENTIN 100 MG CAP PO SCH ×3 (06:24→21:20)
--- NOTE | 2018-10-05 07:40 | NUR ---
Opening Shift Note Assumed care of patient, awake and alert sitting up eating breakfast. Patient appears aggravated, complaining about staff yesterday. Patient states he adjusted suction on his chest tube, pulled at drawer almost to demonstrate knocking over chest tube. Chest tube secured and dressing intact at this time. Drainage marked at 500 ml. Witnessed patient touching IV pump. IV pump running as ordered at this time. Education provided. No S/S of distress/SOB or pain. Instructed on POC and to call for assist PRN, will continue to monitor for changes Q1hr and PRN.
[2018-10-05] MEDS: ASPirin-EC 81 mg tab PO SCH (09:55)
[2018-10-05] MEDS: PANTOPRAZOLE 40 MG TAB PO SCH (09:55)
[2018-10-05] MEDS: NICOTINE 21MG/24 HR TOPICAL PATCH TD SCH (09:56)
[2018-10-05] MEDS: HYDROcodone-ACET 5/325MG TAB PO PRN (10:11)
--- NOTE | 2018-10-05 10:20 | NUR ---
CHARGE NURSE Patient asking to speak with cryptologic supervisor "above charge nurse". Attempted to answer patient questions, patient resistive to communication refusing to speak with RN. Patient states complaints are r/t nurses from yesterday. Patient denies any needs or concerns at this time.
--- NOTE | 2018-10-05 10:22 | NUR ---
meat molder states she will notify director and warehouse guard of patients concerns. Director currently in meeting and warehouse guard unavailable at this time. Patient made aware and states "of course".
--- NOTE | 2018-10-05 10:44 | NUR ---
Walking in yusuf, Unhooked chest tube Patient was seen walking in the hallway with his IV pole. He had disconnected his chest tube from the wall on his own and had it hanging on the IV pole. He stated he was walking off his anxiety. He came back to the room after a short time.
--- NOTE | 2018-10-05 11:30 | NUR ---
Respiratory note: SCHEDULED MED NEB TX NOT GIVEN. PT WAS ON A PHONE CALL AND DID NOT WANT TO BE BOTHERED WITH A BREATHING TX . NO DISTRESS NOTED.
[2018-10-05 11:33] VITALS: BP 180/107
[2018-10-05] MEDS: LORazepam 0.5 MG TAB PO PRN (13:58)
--- NOTE | 2018-10-05 14:00 | NUR ---
DR OMAR cavazos on patient. made aware of elevated BP. Order to discontinue IV fluids. Will admin PRN BP medications.
[2018-10-05 16:26] VITALS: BP_SYST 185
--- NOTE | 2018-10-05 17:37 | NUR ---
HOUSE SUP AT BEDSIDE SPEAKING WITH PATIENT REQUESTED.
--- NOTE | 2018-10-05 17:47 | NUR ---
Security Paged Patient being abrasive and began yelling at Hospice Fellow telling her to leave room. While warehouse distribution specialist was walking away patient started running after warehouse distribution specialist almost ripping chest tube out of chest, drainage container fell over. at bedside. Patient is cursing at . Dr Nuno walking by room went in to spoke with patient. made aware of patients behaviors.
--- NOTE | 2018-10-05 18:00 | NUR ---
MED HELD Patient aggressive toward staff. Security aware.
--- NOTE | 2018-10-05 19:25 | NUR ---
ASSUMED CARE, PT. AWAKE, CHEST TUBE IN PLACE, NO C/O PAIN, PT. BUSY ON HIS CELLPHONE, NO SOB.
--- NOTE | 2018-10-05 19:33 | NUR ---
PT REFUSED MED NEB TX AT THIS TIME. PT STATED THAT HE'D HAVE NO MED NEB UNTIL TOMORROW. NO SHORTNESS OF BREATH NOTED. WILL CONTINUE WITH NEXT SCHEDULED TX IF PERMITTED.
[2018-10-05] MEDS: TEMAZEPAM 15 MG CAP PO PRN (21:21)
[2018-10-05 22:00] VITALS: BP 163/90
--- NOTE | 2018-10-06 03:06 | NUR ---
Opening Shift Note Assumed care of patient from day shift RN. Patient is awake and alert with no S/S of distress/SOB or pain at this time. Instructed on POC and to call for assist PRN, will continue to monitor for changes Q1hr and PRN. Addendum: 10/07/18 at 0309 by DAREK QUESADA RN RN wrong time
[2018-10-06] MEDS: HYDROcodone-ACET 5/325MG TAB PO PRN (03:29)
[2018-10-06 04:52] VITALS: BP 166/107
[2018-10-06] MEDS: DOXYCYCLINE 100MG/250ML 250 ML IV SCH ×2 (05:35→17:10)
[2018-10-06] MEDS: methylPREDNISolone SOD SUCC 40 MG/ML VL IV SCH ×3 (05:35→22:00)
[2018-10-06] MEDS: GABAPENTIN 100 MG CAP PO SCH ×3 (05:36→22:00)
[2018-10-06] MEDS: cloNIDine HCL 0.1 MG TAB PO PRN ×2 (05:36→15:05)
--- NOTE | 2018-10-06 06:10 | NUR ---
V/S STABLE, NO C/O PAIN AT THIS TIME, STILL HAS AN ATTITUDE, NEEDY, NOT IN DISTRESS.
[2018-10-06] MEDS: IPRATROPIUM BROM 0.5 MG/2.5ML INH SOL NEB SCH ×4 (07:05→19:53)
[2018-10-06] MEDS: ALBUTEROL SULF 2.5 MG/0.5ML(0.5%) NEB SOLN NEB SCH ×4 (07:05→19:53)
--- NOTE | 2018-10-06 08:30 | NUR ---
Opening Shift Note Assumed care of patient, awake and alert. Respiratory even and unlabored. No S/S of distress/SOB or pain. Skin is warm and dry to touch. Instructed on POC and to call for assist PRN, will continue to monitor for changes Q1hr and PRN.
[2018-10-06] MEDS: NICOTINE 21MG/24 HR TOPICAL PATCH TD SCH (09:37)
[2018-10-06] MEDS: PANTOPRAZOLE 40 MG TAB PO SCH (09:38)
[2018-10-06] MEDS: ASPirin-EC 81 mg tab PO SCH (09:38)
[2018-10-06 12:50] VITALS: BP 199/112
[2018-10-06 12:51] VITALS: BP 195/113
[2018-10-06 17:00] VITALS: BP 186/110
--- NOTE | 2018-10-06 17:24 | NUR ---
Dr. Nuno paged regarding BP 192/114 HR 88, awaiting to call back.
--- NOTE | 2018-10-06 17:27 | NUR ---
Received a new order from Dr. Nuno , noted and carried out.
--- NOTE | 2018-10-06 19:25 | NUR ---
Opening Shift Note Assumed care of patient from day shift RN. Patient is awake and alert with no S/S of distress/SOB or pain at this time. Instructed on POC and to call for assist PRN, will continue to monitor for changes Q1hr and PRN
[2018-10-06] MEDS: LABETALOL HCL 200 MG TAB PO SCH (22:00)
[2018-10-07] MEDS: ALBUTEROL SULF 2.5 MG/0.5ML(0.5%) NEB SOLN NEB SCH ×4 (00:08→20:20)
[2018-10-07] MEDS: IPRATROPIUM BROM 0.5 MG/2.5ML INH SOL NEB SCH ×4 (00:08→20:20)
[2018-10-07] MEDS: TEMAZEPAM 15 MG CAP PO PRN (00:32)
[2018-10-07] MEDS: HYDROcodone-ACET 5/325MG TAB PO PRN (04:30)
[2018-10-07 05:08] VITALS: BP 113/62
[2018-10-07] MEDS: DOXYCYCLINE 100MG/250ML 250 ML IV SCH ×2 (06:12→18:18)
[2018-10-07] MEDS: methylPREDNISolone SOD SUCC 40 MG/ML VL IV SCH ×3 (06:12→22:08)
[2018-10-07] MEDS: GABAPENTIN 100 MG CAP PO SCH ×3 (06:12→22:06)
[2018-10-07] MEDS: LABETALOL HCL 200 MG TAB PO SCH ×3 (06:13→22:07)
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
--- NOTE | 2018-10-07 07:18 | NUR ---
CLOSING SHIFT NOTE PATIENT IS SITTING UP IN BED DRINKING COFFEE. NO S/S OF DISTRESS OR PAIN AT THIS TIME. BED IS LOW, LOCKED, AND CALL LIGHT IS IN PLACE. CHEST TUBE DRAINAGE CONTAINER IS ON THE FLOOR. DRAINAGE OF 75 ML ACCUMULATED. CARE TRANSFERRED TO DAY SHIFT RN
[2018-10-07 09:00] VITALS: BP 146/119
[2018-10-07] MEDS: PANTOPRAZOLE 40 MG TAB PO SCH (10:45)
[2018-10-07] MEDS: ASPirin-EC 81 mg tab PO SCH (10:45)
[2018-10-07] MEDS: NICOTINE 21MG/24 HR TOPICAL PATCH TD SCH (10:46)
--- NOTE | 2018-10-07 12:00 | NUR ---
Nutrition Follow-up Notes Wt.: 86.2 kg Pt's asleep, no immediate family member at bedside during rounds this morning. Pt's s/p chest tube for pneumothorax post benign mass resection. pt with no distress noted. pt is currently on regular diet with adequate PO of 100% x 5 per RN doc Est. Needs BW [id number] kcal (23-25 kcal/kgBW), 80-96 gms pro (1.0-1.2 gms/kgBW). Will continue to monitor pertinent labs and reassess nutrient need prn Labs: GLU 173 H, ALB 2.6 L, BUN 24 H Skin: Nitin scale 21 mod risk, pt's right chest tube incision dry and intact per fish hatchery worker. GI: Pt had 1 BM 10/02/18 per fish hatchery worker. PES: Altered nutrition related lab values r/t current/chronic medical condition aeb elev BUN, hyperglycemia Will continue to monitor PO intake, skin status, pertinent labs and weight trend. F/u in 3 to 5 days. Rec.: 1.) Continue close supervision during meals. 2.) If Albumin level continues trending down, consider Prostat 1 pkt BID. 3.) If pt's gluc level remains consistently elev., consider to resume Consistent Std. Carb: 60 gms/meal diet. 4.) Refer pt to CDE/RD for further nutrition education and weight monitoring upon discharge. 4.) Continue current plan of care.
[2018-10-07 13:00] VITALS: BP 187/107
--- NOTE | 2018-10-07 15:07 | NUR ---
assessment Patient is a 58 year old male who is alert and oriented. Patients cognitive abilities are intact. Prior to admission patient lived home with family and functioned independently. Patient informed me he is able to care for his own ADLs. Per patient he will return home to his prior living arrangements post discharge and family will transport him home. Patient informed me his PCP is Dr Nuno. Patient informed me he has no need for DME. Patients post discharge needs to be determined prior to discharge. I informed patient he has a right to speak to a social science manager regarding all care. I informed patient he has a right to participate in any and all discharge planning. Patient is aware of visiting hours on the hospital floor. I informed patient he has a right to privacy. Patient does not have a POA and advanced directive. I have offered patient information on POA and advanced directives. I informed the patient the advantages and benefits of having an Advanced Directive. Patient verbalized understanding and agreed to discharge plan. Addendum: 10/07/18 at 1510 by Sylwia LOPEZ Amended: Links added.
[2018-10-07 17:00] VITALS: BP 205/114
[2018-10-07] MEDS: cloNIDine HCL 0.1 MG TAB PO PRN (18:20)
--- NOTE | 2018-10-07 19:10 | NUR ---
Opening Shift Note Assumed care of patient from day shift RN. Patient is awake and alert with no S/S of distress/SOB or pain at this time. Family is at bedside. Instructed on POC and to call for assist PRN, will continue to monitor for changes Q1hr and PRN
[2018-10-07 22:00] VITALS: BP 157/89
[2018-10-08] MEDS: TEMAZEPAM 15 MG CAP PO PRN (01:44)
[2018-10-08] MEDS: HYDROcodone-ACET 5/325MG TAB PO PRN (01:44)
[2018-10-08 05:35] VITALS: BP 162/90
[2018-10-08] MEDS: GABAPENTIN 100 MG CAP PO SCH ×4 (06:18→21:58)
[2018-10-08] MEDS: LABETALOL HCL 200 MG TAB PO SCH ×4 (06:19→21:58)
[2018-10-08] MEDS: methylPREDNISolone SOD SUCC 40 MG/ML VL IV SCH ×3 (06:19→22:47)
[2018-10-08] MEDS: DOXYCYCLINE 100MG/250ML 250 ML IV SCH ×2 (07:02→18:38)
--- NOTE | 2018-10-08 07:23 | NUR ---
CLOSING SHIFT NOTE PATIENT IS SITTING UP IN BED DRINKING COFFEE. NO S/S OF DISTRESS OR PAIN AT THIS TIME. BED IS SLIGHTLY ELEVATED AT PATIENT REQUEST TO SEE OUT THE WINDOW TO LOOK AT THE RAIN. EDUCATED ON SAFETY RISK. CALL LIGHT IS IN PLACE. CHEST TUBE DRAINING CLEAR FLUID 300 ML FOR SHIFT. CARE TRANSFERRED TO DAY SHIFT RN
[2018-10-08] MEDS: LORazepam 0.5 MG TAB PO PRN (07:57)
--- NOTE | 2018-10-08 08:00 | NUR ---
Opening Shift Note Assumed care of patient, awake and alert. No S/S of distress/SOB or pain. Instructed on POC and to call for assist PRN, will continue to monitor for changes Q1hr and PRN. Bed is up high with one side rail down. Patient educated that the bed needs be down with 2 side rails down for safety reasons. Patient refuses for the bed to be down with both side rails up. Will continue to monitor. Call light within reach.
--- NOTE | 2018-10-08 09:00 | NUR ---
Patient refuses assessment of vital signs continue to monitor
--- NOTE | 2018-10-08 09:00 | NUR ---
Chest tube present: collecting chamber currently at 80mL. Chest tube marked for observations continue to monitor
[2018-10-08] MEDS: ALBUTEROL SULF 2.5 MG/0.5ML(0.5%) NEB SOLN NEB SCH ×4 (09:26→19:38)
[2018-10-08] MEDS: IPRATROPIUM BROM 0.5 MG/2.5ML INH SOL NEB SCH ×4 (09:26→19:38)
[2018-10-08] MEDS: PANTOPRAZOLE 40 MG TAB PO SCH (11:11)
[2018-10-08] MEDS: ASPirin-EC 81 mg tab PO SCH (11:11)
[2018-10-08] MEDS: NICOTINE 21MG/24 HR TOPICAL PATCH TD SCH (11:12)
[2018-10-08 13:12] VITALS: BP 102/53
--- NOTE | 2018-10-08 15:40 | NUR ---
Patient refused Solumedrol and Gabapentin at scheduled time Patient requesting now. Medications given now
--- NOTE | 2018-10-08 17:00 | NUR ---
patient refuses assessment of vital signs at this time
--- NOTE | 2018-10-08 18:46 | NUR ---
Shift closing note Family at bedside Patient resting in bed. Chest tube present: collecting chamber currently at 120mL
--- NOTE | 2018-10-08 21:50 | NUR ---
ADDED TAPE TO THE CHEST TUBE
[2018-10-08 22:00] VITALS: BP 171/116
--- NOTE | 2018-10-08 22:15 | NUR ---
IV removal IV DC'd with clean sterile technique, catheter fully intact. Pressure dressing applied to site. Patient tolerated well. NOTE: OLD IV HAD PULLED OUT
--- NOTE | 2018-10-08 22:40 | NUR ---
IV insertion IV access obtained, via clean sterile technique by inserting 22 gauge catheter at RIGHT FOREARM after 3 attempt(s). IV secured properly. No trauma to site. Patient tolerated well.
[2018-10-08] MEDS: HYDROmorphone HCL 2 MG/ML VL IV PRN (22:48)
[2018-10-09] MEDS: ALBUTEROL SULF 2.5 MG/0.5ML(0.5%) NEB SOLN NEB SCH ×4 (00:02→19:13)
[2018-10-09] MEDS: IPRATROPIUM BROM 0.5 MG/2.5ML INH SOL NEB SCH ×4 (00:02→19:13)
[2018-10-09] MEDS: TEMAZEPAM 15 MG CAP PO PRN ×2 (00:32→23:16)
[2018-10-09 05:00] VITALS: BP 136/79
[2018-10-09] MEDS: methylPREDNISolone SOD SUCC 40 MG/ML VL IV SCH ×3 (06:15→22:03)
[2018-10-09] MEDS: DOXYCYCLINE 100MG/250ML 250 ML IV SCH ×2 (06:15→17:36)
[2018-10-09] MEDS: LABETALOL HCL 200 MG TAB PO SCH ×3 (06:16→22:04)
[2018-10-09] MEDS: GABAPENTIN 100 MG CAP PO SCH ×3 (06:16→22:03)
[2018-10-09] MEDS: LORazepam 0.5 MG TAB PO PRN (06:16)
--- NOTE | 2018-10-09 08:00 | NUR ---
Opening Shift Note Assumed care of patient, awake and alert sitting up in bed reading newspaper. No S/S of distress/SOB or pain. Patient had many complaints about his doctor, stating that he was shouting at him and told him he is pulling on his chest tube to stay in the hospital longer. He also verbalized that he doesn't care what anyone thinks he is not leaving the hospital until he believes he is well enough to go home. Patient also stated that he does not want anyone to ask him about his bowel movement as that's not why he is in the hospital and he wants his door to be kept closed. Instructed on POC and to call for assist PRN, will continue to monitor for changes Q1hr and PRN.
[2018-10-09 09:00] VITALS: BP 179/103
[2018-10-09] MEDS: PANTOPRAZOLE 40 MG TAB PO SCH (09:07)
[2018-10-09] MEDS: ASPirin-EC 81 mg tab PO SCH (09:07)
[2018-10-09] MEDS: cloNIDine HCL 0.1 MG TAB PO PRN ×2 (09:08→17:36)
[2018-10-09] MEDS: HYDROmorphone HCL 2 MG/ML VL IV PRN ×2 (09:08→22:05)
[2018-10-09] MEDS: NICOTINE 21MG/24 HR TOPICAL PATCH TD SCH (09:09)
[2018-10-09 13:00] VITALS: BP 143/75
--- NOTE | 2018-10-09 13:45 | NUR ---
public works supervisor at bedside.
[2018-10-09 14:52] VITALS: BP 143/75
--- NOTE | 2018-10-09 16:46 | NUR ---
Telephone Order Dr. Torres Received telephone order from Dr. Torres to obtain consent for right thoracotomy, possible lung resection on 10/10/18. Keep patient NPO after midnight, and type and screen, PT/PTT. He will see the patient on 10/10/18 and explain procedure.
[2018-10-09 17:00] VITALS: BP 181/103
--- NOTE | 2018-10-09 17:00 | NUR ---
Patient in bathroom at this time, at bedside.
--- NOTE | 2018-10-09 17:20 | NUR ---
Patient still in bathroom, unable to notify him of procedure.
--- NOTE | 2018-10-09 17:45 | NUR ---
I notified patient of Dr. Torres's orders and he had many questions regarding procedure. I informed him that the MD will see him and explain. He stated that he didn't want to remove any portions of his lungs and he want to discuss surgery options with the doctor.
[2018-10-09 18:16] LABS: INR 0.89 (0.9-1.15); Partial Thromboplastin Time 23.4 sec (23.78-33.04); Prothrombin Time 9.6 sec (9.27-12.13)
[2018-10-09 22:00] VITALS: BP 164/87
[2018-10-10] MEDS: IPRATROPIUM BROM 0.5 MG/2.5ML INH SOL NEB SCH ×4 (00:45→19:34)
[2018-10-10] MEDS: ALBUTEROL SULF 2.5 MG/0.5ML(0.5%) NEB SOLN NEB SCH ×4 (00:45→19:34)
[2018-10-10 05:00] VITALS: BP 112/57
[2018-10-10] MEDS: GABAPENTIN 100 MG CAP PO SCH ×3 (05:45→22:00)
[2018-10-10] MEDS: DOXYCYCLINE 100MG/250ML 250 ML IV SCH ×2 (05:45→18:00)
[2018-10-10] MEDS: methylPREDNISolone SOD SUCC 40 MG/ML VL IV SCH ×3 (05:45→22:00)
[2018-10-10] MEDS: LABETALOL HCL 200 MG TAB PO SCH ×3 (05:47→22:00)
--- NOTE | 2018-10-10 07:40 | NUR ---
OPENING PATIENT IN BED, AT BEDSIDE, CHEST TUBE INTACT AND PATENT, PATIENT IS AGGRAVATED HE STATES HE HAS NOT SPOKE WITH THE DOCTOR ABOUT THIS PROCEDURE AND WOULD LIKE TO SPEAK WITH HIM NOW. WILL PAGE , OMAR AND F/U WITH JOSEPH ABOUT POSSIBLE PROCEDURE TODAY. PATIENT IS REFUSING TO PUT ON HIS TELEMETRY HEART MONITOR, EDUCATED PATIENT THE RISKS OF NOT HAVING IT ON, PATIENT STILL REFUSES. ALERTED MY CHARGE NURSE AND WILL ALSO ALERT MD NELSON OF SITUATION. TODAY PATIENT IS TO GET A POSSIBLE LUNG RESECTION WITH MD RUIZ, WILL DOUBLE CHECK PAPERWORK OF CHECKLIST, NO CONSENTS SIGNED PER NOC AND PATIENT MD HAS NOT SPOKEN AND EDUCATED PATIENT. WILL F/U WITH MORNING ASSESSMENT
[2018-10-10 08:42] VITALS: BP 150/97
[2018-10-10] MEDS: HYDROmorphone HCL 2 MG/ML VL IV PRN ×5 (09:53→23:00)
[2018-10-10] MEDS: PANTOPRAZOLE 40 MG TAB PO SCH (09:53)
[2018-10-10] MEDS: ASPirin-EC 81 mg tab PO SCH (09:54)
[2018-10-10] MEDS: NICOTINE 21MG/24 HR TOPICAL PATCH TD SCH (09:54)
[2018-10-10 13:00] VITALS: BP 172/102
--- NOTE | 2018-10-10 15:58 | NUR ---
PT OFF UNIT FOR PROCEDURE
[2018-10-10] MEDS ORDERED: HYDROmorphone HCL 2 MG/ML VL ONE (16:30)
[2018-10-10] MEDS ORDERED: MIDAZOLAM HCL 1MG/1ML-2 ML VIAL ONE (16:30)
[2018-10-10] MEDS ORDERED: fentaNYL CITRATE 100 MCG/2 ML VL ONE ×2 (16:30→17:08)
[2018-10-10] MEDS ORDERED: cefTRIAXone 1GM/50ML D5W 50 ML IV ONE (16:44)
[2018-10-10 17:00] VITALS: BP 189/99
[2018-10-10] MEDS ORDERED: PROPOFOL 10 MG/ML 20 ML IV ONE (17:08)
[2018-10-10] MEDS ORDERED: DEXAMETHASONE SOD PHOS 10MG/1ML VIAL INJ ONE (17:08)
[2018-10-10] MEDS ORDERED: ROCURONIUM 10MG/ML 10ML VIAL IV ONE (17:15)
[2018-10-10] MEDS ORDERED: ONDANSETRON HCL 4 MG/2 ML VIAL IV PRN (19:00)
[2018-10-10] MEDS ORDERED: D5W/SOD CHL 0.45%/KCL 20MEQ 1,000 ML IV SCH (19:00)
[2018-10-10] MEDS ORDERED: MIDAZOLAM HCL 1MG/1ML-2 ML VIAL IV PRN (19:30)
[2018-10-10] MEDS ORDERED: LABETALOL HCL 5 MG/ML 4ML SYRINGE IV PRN (19:30)
[2018-10-10] MEDS ORDERED: MORPHINE SULFATE 4 MG/ML SYR/VIAL IV PRN (19:30)
[2018-10-10] MEDS ORDERED: ONDANSETRON HCL 4 MG/2 ML VIAL IV ONE (19:30)
[2018-10-10] MEDS ORDERED: KETOROLAC TROMETH 30 MG/ML 1ML VIAL IV ONE (19:30)
[2018-10-10] MEDS ORDERED: ePHEDrine SULFATE 50 MG/ML AMP IV PRN (19:30)
[2018-10-10] MEDS ORDERED: hydrALAZINE HCL 20 MG/ML VL IV PRN (19:30)
[2018-10-10] MEDS ORDERED: MORPHINE SULFATE 4 MG/ML SYR/VIAL IV ONE (20:00)
[2018-10-10] MEDS: ACYCLOVIR SOD 50MG/ML 500 MG in D5W 5% 100 ML IV SCH (21:00)
[2018-10-11] MEDS ORDERED: NOREPINEPHRINE 8 MG/250ML KIT 250 ML IV ONE (00:45)
[2018-10-11] MEDS ORDERED: NOREPINEPHRINE 8 MG/250ML KIT 250 ML IV SCH (01:00)
[2018-10-11 01:22] LABS: Hemoglobin 12.7 g/dL (13.5-17.5)
[2018-10-11 01:24] LABS: Hematocrit 38.8 % (41.0-53.0); Mean Corpuscular Hemoglobin 29.2 pg (28.0-32.0); Mean Corpuscular Hgb Conc. 32.8 g/dL (32.0-36.0); Platelet Count (auto) 311 10^3/uL (140-450); Red Blood Cells 4.36 10^6/uL (4.5-5.90); Red Cell Distribution Width 14.5 % (11.8-14.3)
[2018-10-11] MEDS: PIPERACILLIN-TAZOB 3.375GM 100 ML IV SCH ×4 (01:30→21:53)
[2018-10-11 01:32] LABS: Basophils % (manual) 0 (0.0-2.0); Blast Cells 0; Eosinophils % (manual) 0 (0-7); Myelocytes % 0; Promyelocytes % 0; Reactive Lymphocytes 0; White Blood Cell 34.5 10^3/uL (4.4-10.8)
[2018-10-11 02:08] LABS: Band Neutrophils % (manual) 1; Lymphocytes % (manual) 7 (10.0-50.0); Metamyelocytes % 1; Monocytes % (manual) 4 (0-12)
[2018-10-11] MEDS ORDERED: SODIUM CHLORIDE 0.9% 500 ML IV ONE (02:35)
[2018-10-11] MEDS ORDERED: DOPamine 1600MCG/ML D5W 250 ML IV ONE (02:36)
[2018-10-11] MEDS: HYDROmorphone HCL 2 MG/ML VL IV PRN ×7 (02:50→21:53)
[2018-10-11] MEDS: ACYCLOVIR SOD 50MG/ML 500 MG in D5W 5% 100 ML IV SCH ×2 (05:00→17:00)
[2018-10-11] MEDS: IPRATROPIUM BROM 0.5 MG/2.5ML INH SOL NEB SCH ×5 (05:41→19:10)
[2018-10-11] MEDS: ALBUTEROL SULF 2.5 MG/0.5ML(0.5%) NEB SOLN NEB SCH ×5 (05:41→19:10)
[2018-10-11] MEDS: GABAPENTIN 100 MG CAP PO SCH ×3 (06:00→21:52)
[2018-10-11] MEDS: LABETALOL HCL 200 MG TAB PO SCH ×3 (06:00→17:29)
[2018-10-11] MEDS: DOXYCYCLINE 100MG/250ML 250 ML IV SCH ×2 (06:00→17:01)
[2018-10-11] MEDS: methylPREDNISolone SOD SUCC 40 MG/ML VL IV SCH ×3 (06:00→21:53)
[2018-10-11 07:50] LABS: Basophils # (auto) 0 uL; Basophils % (auto) 0.1 % (0.0-2.0); Eosinophils # (auto) 0 uL; Hematocrit 32.8 % (41.0-53.0); Lymphocytes # (auto) 1.1 uL; Lymphocytes % (auto) 5.2 % (10.0-50.0); Neutrophils # (auto) 18.2 uL
[2018-10-11 07:53] LABS: Hemoglobin 9.7 g/dL (13.5-17.5); Mean Corpuscular Hgb Conc. 29.6 g/dL (32.0-36.0); Mean Corpuscular Volume 101.4 fL (80.0-100.0); Monocytes # (auto) 1.8 uL; Monocytes % (auto) 8.5 % (0.0-12.0); Neutrophils % (auto) 86.2 % (37.0-80.0); Platelet Count (auto) 218 10^3/uL (140-450); Red Blood Cells 3.24 10^6/uL (4.5-5.90); Red Cell Distribution Width 16.4 % (11.8-14.3); White Blood Cell 21.1 10^3/uL (4.4-10.8)
[2018-10-11] MEDS: D5W/SOD CHL 0.45% 1,000 ML IV SCH ×2 (08:00→21:20)
[2018-10-11 08:08] LABS: Albumin 2.2 g/dL (3.4-5.0)
[2018-10-11 08:13] LABS: BUN/Creatinine Ratio 26.4; Bilirubin, Total 0.6 mg/dL (0.2-1.0); Total Protein 4.7 g/dL (6.4-8.2)
[2018-10-11 08:32] LABS: Potassium 5.7 mmol/L (3.5-5.1)
[2018-10-11] MEDS ORDERED: DEXTROSE (50%) 50ML SYRG IV PRN (08:45)
[2018-10-11] MEDS: InsuLIN REG 1unit/0.01ml Soln (100units/ml) SC SCH ×4 (08:50→22:00)
[2018-10-11] MEDS: ASPirin-EC 81 mg tab PO SCH (10:00)
[2018-10-11] MEDS: NICOTINE 21MG/24 HR TOPICAL PATCH TD SCH (10:00)
[2018-10-11] MEDS: PANTOPRAZOLE 40 MG TAB PO SCH (10:00)
[2018-10-11] MEDS: ACCU-CHEK COMFORT CURVE STRIP VI SCH ×3 (12:30→23:18)
--- NOTE | 2018-10-11 14:59 | NUR ---
RECEIVED REPORT FROM LEI OR NURSE. SHE ENDORSED NOT TO GIVE THE BLOOD TRANSFUSION 1 UNIT PRBC BECAUSE IT IS NOT NEEDED AND DOCTOR IS AWARE OF IT. CLARIFIED ORDERS ABOUT THE SCHEDULED MEDICATIONS SINCE LAST NIGHT AND MEDS THIS AM, SAID SHE WILL FIX THEM BEFORE BRINGING THE PATIENT UP TO ROOM.
--- NOTE | 2018-10-11 15:30 | NUR ---
RECEIVED PATIENT FROM O.. BY BED ASSISTED BY LEI SKINNER. NOTED PATIENT WITH ONGOING CHEST TUBE DRAINAGE ATTACHED TO LOW CONTINUOUS SUCTION. DRAINAGE STILL BLOODY OUTPUT OF 1400ML. PATIENT IS ALERT AND ORIENTEDX4, SITTER AT BEDSIDE. HOOKED TO OXYGEN AT 2LPM VIA NASAL CANNULA. TELEMETRY MONITORING BOX #[id number] PLACED PROPERLY, READING IS SINUS RHYTHM, WILL ASSUME CARE.
--- NOTE | 2018-10-11 15:41 | NUR ---
Nutrition Follow-up Notes Wt.: 76.8 kg as of 10/09/18. Noted 9.4 kg weight loss in last 3 days likely d/t ? fluid loss aeb negative I & Os for past few days. Pt's asleep, no immediate family member at bedside during rounds this morning. Pt's s/p right thoracotomy yesterday, no signs of distress noted earlier, NPO yesterday currently on Full Liquid diet, no record of food intake yet at this time. Est. Needs BW [id number] kcal (23-25 kcal/kgBW), 80-96 gms pro (1.0-1.2 gms/kgBW). Will continue to monitor pertinent labs and reassess nutrient need prn Labs: Gluc 407 H, Na 129 L, K 5.7 H, BUN 19 H, Ca 7.0 L, Tpro 4.7 L, Alb 2.2 L Skin: Nitin scale 18 mod risk, pt's right chest tube incision dry and intact per personal health coach. GI: Pt had 1 BM yesterday per personal health coach. PES: Altered nutrition related lab values r/t current/chronic medical condition aeb elev BUN, hyperglycemia Will continue to monitor PO intake, skin status, pertinent labs and weight trend. F/u in 3 to 5 days. Rec.: 1.) Resume Consistent Std. Carb: 60 gms/meal diet when medically appropriate. 2.) Continue close supervision during meals. 3.) If Albumin level continues trending down, consider Prostat 1 pkt BID. 4.) If pt's gluc level remains consistently elev., consider to . 5.) Refer pt to CDE/RD for further nutrition education and weight monitoring upon discharge. 6.) Continue current plan of care.
--- NOTE | 2018-10-11 16:00 | NUR ---
PAGED DR. RUIZ TO CLARIFY ORDERS OF PATIENT'S MEDICATIONS, SAID TO CONTINUE ALL THE MEDS THE PATIENTS WERE ON AND DISCONTINUE THE LEVOPHED AND DOPAMINE DRIPS.
[2018-10-11 16:24] VITALS: BP 144/64
--- NOTE | 2018-10-11 16:24 | NUR ---
CALLED PHARMACY AND INFORMED ABOUT THE MEDICATIONS THAT WERE NOT GIVEN WHEN THE PATIENT WAS AT [facility] SAID JUST TO GIVE THE MEDS WITHOUT HER CHANGING THE DATE AND TIME.
--- NOTE | 2018-10-11 16:31 | NUR ---
SPOKE WITH PHARMACIST MIRANDA AND INFORMED ABOUT THE MEDICATIONS THAT WILL STILL BE DUE AFTER GIVING IT, SAID JUST TO CLICK NON-ADMIN AND ALREADY GIVEN.
--- NOTE | 2018-10-11 17:41 | NUR ---
ZOVIRAX IV AND VIBRAMYCIN IV ONGOING ON TWO DIFFERENT IV SITES. WILL ENDORSE ZOSYN IV TO NIGHT NURSE.
--- NOTE | 2018-10-11 17:57 | NUR ---
CALLED PHARMACIST AND INFORMED ABOUT THE ZOVIRAX IV GIVEN AT 1700, SAID SHE WILL RESCHEDULE THE NEXT SCHEDULED TIME.
--- NOTE | 2018-10-11 18:03 | NUR ---
SPOKE WITH MANAGING PRINCIPAL KIM AND INFORMED THAT THERE IS NO DOPA IV AT MEDICATION ROOM FOR THE PATIENT, SAID SHE WILL SEND THE SAID MEDICINE.
--- NOTE | 2018-10-11 18:30 | NUR ---
RECEIVED TELEPHONE ORDER FROM DR NELSON TO KEEP DOPAMINE IV 5MCG/KG/MIN FIX RATE BE GIVEN TO PATIENT.
--- NOTE | 2018-10-11 19:15 | NUR ---
Opening Note Received change of shift report. Patient is awake, alert and oriented x4. No signs or symptoms of distress noted at this time. Patient states pain at chest tub insertion site 02/13. Patient has a chest tub on right side, on continuos suction. Patient took off his oxygen, states " I feel fine without it." Patient has Perkins catheter, patent and draining. Patient is on Dopamine IV 5mcg/kg/min. Reviewed plan of care with patient, patient verbalized understanding. at bedside. Bed in low and locked position, call light within reach. Sitter at bedside for safety.
[2018-10-11] MEDS: DOPamine 1600MCG/ML D5W 250 ML IV SCH ×2 (19:29→19:57)
[2018-10-11] MEDS: ONDANSETRON HCL 4 MG/2 ML VIAL IV PRN (20:45)
[2018-10-11 22:28] VITALS: BP 107/66
[2018-10-12] MEDS: IPRATROPIUM BROM 0.5 MG/2.5ML INH SOL NEB SCH ×4 (00:31→19:18)
[2018-10-12] MEDS: ALBUTEROL SULF 2.5 MG/0.5ML(0.5%) NEB SOLN NEB SCH ×4 (00:31→19:18)
[2018-10-12] MEDS: TEMAZEPAM 15 MG CAP PO PRN (00:49)
[2018-10-12] MEDS: PIPERACILLIN-TAZOB 3.375GM 100 ML IV SCH ×3 (00:50→21:00)
[2018-10-12] MEDS: HYDROmorphone HCL 2 MG/ML VL IV PRN ×3 (02:47→14:06)
[2018-10-12] MEDS: ACYCLOVIR SOD 50MG/ML 500 MG in D5W 5% 100 ML IV SCH ×3 (02:48→16:39)
[2018-10-12 05:44] VITALS: BP 101/60
[2018-10-12] MEDS: DOXYCYCLINE 100MG/250ML 250 ML IV SCH ×2 (05:53→18:04)
[2018-10-12] MEDS: methylPREDNISolone SOD SUCC 40 MG/ML VL IV SCH ×3 (05:53→22:58)
[2018-10-12] MEDS: LABETALOL HCL 200 MG TAB PO SCH ×3 (06:00→23:28)
[2018-10-12] MEDS: GABAPENTIN 100 MG CAP PO SCH ×3 (06:00→22:58)
[2018-10-12] MEDS: InsuLIN REG 1unit/0.01ml Soln (100units/ml) SC SCH ×4 (06:06→22:00)
[2018-10-12] MEDS: ACCU-CHEK COMFORT CURVE STRIP VI SCH ×4 (06:06→22:58)
--- NOTE | 2018-10-12 07:10 | NUR ---
Closing Note Report given to day shift RN. Patient is awake, alert and oriented x4. No signs or symptoms of distress. Chest tube drainage 160ml during my shift, on continuous suction. Perkins catheter patent and draining. Addendum: 10/12/18 at 0801 by PIYUSH FAJARDO RN RN sitter at bedside for safety
[2018-10-12 09:04] VITALS: BP 135/79
[2018-10-12] MEDS: NICOTINE 21MG/24 HR TOPICAL PATCH TD SCH ×2 (10:00→14:03)
--- NOTE | 2018-10-12 10:10 | NUR ---
Bleeding noted from chest tube site. paged dr. aguila
[2018-10-12 10:26] LABS: Basophils # (auto) 0 uL; Basophils % (auto) 0.1 % (0.0-2.0); Eosinophils # (auto) 0 uL; Hematocrit 36.5 % (41.0-53.0); Lymphocytes # (auto) 1.1 uL; Lymphocytes % (auto) 5.1 % (10.0-50.0); Mean Corpuscular Hemoglobin 28.9 pg (28.0-32.0); Mean Corpuscular Hgb Conc. 32.8 g/dL (32.0-36.0); Mean Corpuscular Volume 88.1 fL (80.0-100.0); Monocytes # (auto) 2.4 uL; Monocytes % (auto) 11.3 % (0.0-12.0); Neutrophils # (auto) 17.6 uL; Neutrophils % (auto) 83.5 % (37.0-80.0); Platelet Count (auto) 259 10^3/uL (140-450); Red Blood Cells 4.15 10^6/uL (4.5-5.90); Red Cell Distribution Width 14.4 % (11.8-14.3)
--- NOTE | 2018-10-12 10:40 | NUR ---
dr. aguila ordered cbc, cmp, and chest x-ray
[2018-10-12 10:48] LABS: Albumin 2.4 g/dL (3.4-5.0); BUN/Creatinine Ratio 21.1; Bilirubin, Total 0.5 mg/dL (0.2-1.0); Total Protein 5.6 g/dL (6.4-8.2)
--- NOTE | 2018-10-12 13:00 | NUR ---
drainage noted from site of chest tube. no signs of distress noted equal breathe sounds o2 sats 96 %
[2018-10-12 13:23] VITALS: BP 139/93
[2018-10-12 13:59] VITALS: BP 139/93
[2018-10-12] MEDS: ASPirin-EC 81 mg tab PO SCH (14:01)
[2018-10-12] MEDS: PANTOPRAZOLE 40 MG TAB PO SCH (14:02)
[2018-10-12] MEDS: D5W/SOD CHL 0.45% 1,000 ML IV SCH (14:02)
[2018-10-12] MEDS: DOPamine 1600MCG/ML D5W 250 ML IV SCH (14:03)
--- NOTE | 2018-10-12 17:40 | NUR ---
changed chest tube canister. still minimal bleeding from site. reinforced site again.
[2018-10-12 17:58] VITALS: BP 114/71
--- NOTE | 2018-10-12 19:25 | NUR ---
Opening Note Received change of shift report from day shift RN. Patient is awake, alert and oriented x4. Patient is sitting up on side of the bed, dangling feet. is at bedside. No signs or symptoms of distress noted at this time. Patient states pain 5/10 at chest tube insertion site. Chest tube is draining on low continuous suction. Insertion site dressing is clean, dry and intact. Patient has Perkins catheter in place, patent and draining. Reviewed plan of care, patient verbalized understanding. Bed in low and locked position, call light within reach. Sitter at bedside for safety. Will continue to monitor Q1 hour and PRN.
--- NOTE | 2018-10-12 19:25 | NUR ---
IV removal IV DC'd with sterile technique, catheter fully intact. Pressure dressing applied to site. Patient tolerated procedure well.
[2018-10-12 20:32] VITALS: BP 137/77
--- NOTE | 2018-10-12 21:00 | NUR ---
Patient refusing new IV start. Patient has IV antibiotics scheduled, patient is refusing IV start at this time. Patient states he wants to be left alone. Will continue to monitor Q1 hour and PRN.
[2018-10-13] MEDS: ALBUTEROL SULF 2.5 MG/0.5ML(0.5%) NEB SOLN NEB SCH ×4 (00:46→20:31)
[2018-10-13] MEDS: IPRATROPIUM BROM 0.5 MG/2.5ML INH SOL NEB SCH ×4 (00:46→20:31)
[2018-10-13] MEDS: ACYCLOVIR SOD 50MG/ML 500 MG in D5W 5% 100 ML IV SCH ×3 (01:00→22:06)
--- NOTE | 2018-10-13 04:30 | NUR ---
IV insertion IV access obtained, via clean sterile technique by inserting 20 gauge catheter at left AC after one attempt. IV secured properly. No trauma to site. Patient tolerated procedure well. IV antibiotics resumed. Will continue to monitor Q1 hour and PRN
[2018-10-13] MEDS: PIPERACILLIN-TAZOB 3.375GM 100 ML IV SCH ×3 (04:47→18:25)
[2018-10-13 04:59] VITALS: BP 109/55
[2018-10-13] MEDS: GABAPENTIN 100 MG CAP PO SCH ×3 (06:00→22:11)
[2018-10-13] MEDS: LABETALOL HCL 200 MG TAB PO SCH ×3 (06:00→22:12)
[2018-10-13] MEDS: methylPREDNISolone SOD SUCC 40 MG/ML VL IV SCH ×3 (06:00→22:11)
[2018-10-13] MEDS: DOXYCYCLINE 100MG/250ML 250 ML IV SCH ×2 (06:00→18:00)
[2018-10-13] MEDS: ACCU-CHEK COMFORT CURVE STRIP VI SCH ×4 (06:14→22:12)
[2018-10-13] MEDS: InsuLIN REG 1unit/0.01ml Soln (100units/ml) SC SCH ×4 (06:14→22:00)
--- NOTE | 2018-10-13 06:14 | NUR ---
Patient refused medications Patient refused all morning medications, states " I feel good right now, I don't want to take anything." Patient states the medications made him feel sick yesterday. Patient allowed me to check his blood glucose, but refused insulin coverage for blood glucose of 131. Will continue to monitor Q1 hour and PRN
--- NOTE | 2018-10-13 06:43 | NUR ---
Chest tube drainage 110mls during this shift, set to low continuous suction. Dressing at chest tube insertion site is clean, dry and intact.
--- NOTE | 2018-10-13 07:30 | NUR ---
Closing Note Report given to day shift RN. No signs or symptoms of distress noted at this time. Sitter at bedside for safety. Perkins catheter patent and draining, chest tube in place. Dressing on right side clean dry and intact, draining on low continuous suction.
[2018-10-13 09:00] VITALS: BP 114/58
[2018-10-13] MEDS: DOPamine 1600MCG/ML D5W 250 ML IV SCH (09:00)
--- NOTE | 2018-10-13 09:36 | NUR ---
DOPAMINE DRIP Held Dopamine infusion, patient's blood pressure remains stable, currently 114/58. No abnormalities noted during assessment. Notified Dr. Nuno, awaiting reply.
[2018-10-13] MEDS: PANTOPRAZOLE 40 MG TAB PO SCH (09:43)
[2018-10-13] MEDS: ASPirin-EC 81 mg tab PO SCH (09:44)
[2018-10-13] MEDS: NICOTINE 21MG/24 HR TOPICAL PATCH TD SCH (09:54)
--- NOTE | 2018-10-13 10:00 | NUR ---
received call from Dr. Nuno, Orders to D/C dopamine drip.
--- NOTE | 2018-10-13 13:12 | NUR ---
Pt was asleep for 1300 vitals
[2018-10-13] MEDS: D5W/SOD CHL 0.45% 1,000 ML IV SCH ×2 (13:20)
--- NOTE | 2018-10-13 14:31 | NUR ---
LUNCH Spouse provided hamburger and fried zucchini per patient's request. Verbalized his liquid diet wasn't satisfying him. Tolerating meal well.
[2018-10-13 16:31] VITALS: BP 128/69
--- NOTE | 2018-10-13 18:00 | NUR ---
Notified Dr. Nuno regarding HOLD on Doxycycline, because patient had a rash from it. Patient currently stable, no SOB at this time.
--- NOTE | 2018-10-13 19:00 | NUR ---
CHEST TUBE Drainage marked at 250mls, for a total of 140ml drainage today. Set to low continuous suction. Dressing at chest tube insertion site is clean, dry and intact.
--- NOTE | 2018-10-13 19:23 | NUR ---
ACYCLOVIR Notified pharmacy that acyclovir was not administered and delayed, because patient is left with one IV access now.
--- NOTE | 2018-10-13 19:50 | NUR ---
RECEIVED PATIENT FROM DAY SHIFT RN. PATIENT RESTING IN BED. FAMILY AT BEDSIDE. NO S/S OF DISTRESS NOTED. DENIED PAIN FOR NOW. CHEST TUBE ON RIGHT SIDE OF CHEST DRAINING GRAVITY. RECEIVED PATIENT FROM DAY SHIFT RN. PATIENT RESTING IN BED. NO S/S OF DISTRESS NOTED. PATIENT DENIED PAIN FOR NOW. POC INSTRUCTED AND ENCOURAGED PATIENT TO CALL FOR CIGARETTE MAKING MACHINE CATCHER IF NEEDED. BED IN LOWEST POSITION WITH SIDE RAILS UP X2. CALL LEON WITHIN REACH. ALARM ON. CONTINUE TO MONITOR FOR CHANGES Q1H AND PRN.
[2018-10-13] MEDS ORDERED: ACYCLOVIR SOD 50MG/ML 500 MG in D5W 5% 100 ML IV SCH ×4 (20:00)
[2018-10-13 22:00] VITALS: BP 127/65
--- NOTE | 2018-10-13 22:13 | NUR ---
ACCU-CHECK, BS 159. PATIENT REFUSED TO HAVE INSULIN. WILL REPORT TO MD. CONTINUE TO MONITOR.
[2018-10-13] MEDS: LORazepam 0.5 MG TAB PO PRN (22:30)
[2018-10-14] MEDS: PIPERACILLIN-TAZOB 3.375GM 100 ML IV SCH ×4 (00:26→18:45)
--- NOTE | 2018-10-14 00:49 | NUR ---
PATIENT PULLED OUT HIS TELE BOX AND STATED THAT HE DID NOT WANT IT ON, AND HE'S BEEN HERE FOR 16 DAYS, HE DID NOT NEED IT ANYMORE. Patient encouraged to KEEP THE TELE MONITOR ON. AND EDUCATED PATIENT ON THE REASON TO KEEP THE MONITOR ON AND THE RISK OF NOT ON MONITORING. PATIENT VERBALIZED UNDERSTANDING BUT STILL REFUSING. TELE UNIT INFORMED. CHARGE NURSE SONNY AWARE OF THAT.
[2018-10-14] MEDS: IPRATROPIUM BROM 0.5 MG/2.5ML INH SOL NEB SCH ×4 (00:55→19:50)
[2018-10-14] MEDS: ALBUTEROL SULF 2.5 MG/0.5ML(0.5%) NEB SOLN NEB SCH ×4 (00:55→19:51)
[2018-10-14] MEDS: D5W/SOD CHL 0.45% 1,000 ML IV SCH ×2 (02:40→17:30)
--- NOTE | 2018-10-14 03:46 | NUR ---
PATIENT SLEEPING. NO S/S OF DISTRESS NOTED. CONTINUE CARE.
[2018-10-14] MEDS: ACYCLOVIR SOD 50MG/ML 500 MG in D5W 5% 100 ML IV SCH ×3 (04:46→22:58)
[2018-10-14] MEDS: HYDROmorphone HCL 2 MG/ML VL IV PRN ×2 (05:26→19:49)
--- NOTE | 2018-10-14 05:26 | NUR ---
PATIENT C/O PAIN @ 06/15. MEDICATED PATIENT ORDERED. CONTINUE TO MONITOR.
[2018-10-14] MEDS: DOXYCYCLINE 100MG/250ML 250 ML IV SCH ×2 (06:00→18:00)
[2018-10-14] MEDS: methylPREDNISolone SOD SUCC 40 MG/ML VL IV SCH ×3 (06:19→22:58)
[2018-10-14] MEDS: GABAPENTIN 100 MG CAP PO SCH ×3 (06:20→22:59)
[2018-10-14] MEDS: InsuLIN REG 1unit/0.01ml Soln (100units/ml) SC SCH ×4 (06:20→23:00)
[2018-10-14] MEDS: ACCU-CHEK COMFORT CURVE STRIP VI SCH ×4 (06:20→23:00)
[2018-10-14] MEDS: LABETALOL HCL 200 MG TAB PO SCH ×3 (06:20→22:59)
--- NOTE | 2018-10-14 06:21 | NUR ---
ACCU-CHECK, BS 132. PATIENT REFUSED TO HAVE INSULIN. WILL REPORT TO MD. CONTINUE TO MONITOR.
[2018-10-14 06:24] VITALS: BP 121/74
--- NOTE | 2018-10-14 07:02 | NUR ---
Drainage marked at 400 ml, for a total of 150ml drainage today. Set to low continuous suction. Dressing at chest tube insertion site is clean, dry and intact.
[2018-10-14 09:00] VITALS: BP 122/67
[2018-10-14] MEDS: NICOTINE 21MG/24 HR TOPICAL PATCH TD SCH (10:00)
[2018-10-14] MEDS: PANTOPRAZOLE 40 MG TAB PO SCH (10:03)
[2018-10-14] MEDS: ASPirin-EC 81 mg tab PO SCH (10:04)
--- NOTE | 2018-10-14 12:02 | NUR ---
IV insertion IV access obtained, via clean sterile technique by inserting 22 gauge catheter at left forearm after 2 attempts. IV secured properly. No trauma to site. Patient tolerated well.
[2018-10-14 13:00] VITALS: BP 127/70
--- NOTE | 2018-10-14 14:18 | NUR ---
Nutrition Follow-up Notes Wt.: 74.1 kg as yesterday. Pt's asleep, no immediate family member at bedside when rounded this morning. Pt's no signs of distress noted earlier, on Full Liquid diet with good PO intake aeb 95% ave, consumed meals (x5) in last 2 days. Noted pt's to start today on Consistent Carb diet. Est. Needs BW [id number] kcal (23-25 kcal/kgBW), 80-96 gms pro (1.0-1.2 gms/kgBW). Will continue to monitor pertinent labs and reassess nutrient need prn Labs: POC Gluc 118 H; 10/12/18 Gluc 111 H, Na 131 L, Ca 8.0 L, Tpro 5.6 L, Alb 2.4 L Skin: Nitin scale 19 low risk, pt's right chest tube incision dry and intact per clinical appeals rn. GI: Pt had 1 BM 10/10/18 per clinical appeals rn. PES: Altered nutrition related lab values r/t current/chronic medical condition aeb elev BUN, hyperglycemia Will continue to monitor PO intake, skin status, pertinent labs and weight trend. F/u in 3 to 5 days. Rec.: 1.) Continue close supervision during meals. 2.) If Albumin level continues trending down, consider Prostat 1 pkt BID. 3.) Refer pt to CDE/RD for further nutrition education and weight monitoring upon discharge. 4.) Continue current plan of care.
--- NOTE | 2018-10-14 15:25 | NUR ---
PT Patient refused to be OOB during PT visit and stated he has been moving in and out of bed. Addendum: 10/14/18 at 1527 by SHEILA BRO PTT Amended: Links added.
[2018-10-14 15:52] VITALS: BP 127/69
--- NOTE | 2018-10-14 19:50 | NUR ---
Opening Shift Note Assumed care of patient, awake and alert x4. No S/S of distress/SOB or pain. Bed in lowest locked position, side rails up x2, call light within reach. Chest tube noted to right chest, draining sanguinous drainage, marked drainage at 440 ml on chest tube, will continue to monitor. Instructed on POC and to call for assist PRN, will continue to monitor for changes Q1hr and PRN. Addendum: 10/15/18 at 0449 by ANUP MACIAS RN RN ADDITION: Chest tube device sitting upright in bedside drawer, hooked to second drawer. Device noted to be stable in this position and remains below chest tube incision site. Patient refusing to have device taped to the floor, reports he is concerned about it "falling over". Patient educated on importance of device remaining upright and below incision site. Patient verbalized understanding. Will continue to monitor.
--- NOTE | 2018-10-14 19:52 | NUR ---
Call from Updated on patient's status and plan of care after password verified. All questions and concerns addressed. verbalized understanding. Will co Addendum: 10/15/18 at 6431 by ANUP MACIAS RN RN CORRECTION: Last sentence should read, "Will continue to monitor patient."
--- NOTE | 2018-10-14 20:00 | NUR ---
Telemetry box Patient still refusing to wear telemetry box and electrodes at this time. Signed AMA to this effect noted in the front of the chart. No s/s of distress. Will continue to monitor.
--- NOTE | 2018-10-14 21:45 | NUR ---
Call from Updated on patient's status and plan of care again after password verified. anxious, became tearful during conversation. reassured by this RN, all questions and concerns addressed. verbalized understanding of information. Will continue to monitor patient.
[2018-10-14 22:00] VITALS: BP 147/78
[2018-10-14] MEDS: LORazepam 0.5 MG TAB PO PRN (22:59)
--- NOTE | 2018-10-14 23:00 | NUR ---
Telemetry box Per Leidy SKINNER, patient convinced by daughters to wear telemetry box. Leidy SKINNER applied electrodes and telemetry box to patient. Patient tolerating well. No s/s of distress. Will continue to monitor.
--- NOTE | 2018-10-15 | NUR ---
Bed Entered room to find patient's bed elevated with one side rail down, still in locked position. Patient educated on importance of keep bed in the lowest position with side rail up, patient continuing to refuse at this time. No s/s of distress, will continue to monitor.
[2018-10-15] MEDS: ALBUTEROL SULF 2.5 MG/0.5ML(0.5%) NEB SOLN NEB SCH ×5 (00:22→23:21)
[2018-10-15] MEDS: IPRATROPIUM BROM 0.5 MG/2.5ML INH SOL NEB SCH ×5 (00:22→23:22)
[2018-10-15] MEDS: PIPERACILLIN-TAZOB 3.375GM 100 ML IV SCH ×6 (00:29→23:46)
[2018-10-15 05:00] VITALS: BP 118/72
[2018-10-15] MEDS: ACYCLOVIR SOD 50MG/ML 500 MG in D5W 5% 100 ML IV SCH ×3 (05:29→20:47)
[2018-10-15] MEDS: D5W/SOD CHL 0.45% 1,000 ML IV SCH ×2 (05:29→18:33)
[2018-10-15] MEDS: DOXYCYCLINE 100MG/250ML 250 ML IV SCH (05:30)
[2018-10-15] MEDS: LABETALOL HCL 200 MG TAB PO SCH ×3 (06:00→22:56)
[2018-10-15] MEDS: methylPREDNISolone SOD SUCC 40 MG/ML VL IV SCH ×4 (06:28→23:46)
[2018-10-15] MEDS: HYDROmorphone HCL 2 MG/ML VL IV PRN ×3 (06:28→20:47)
[2018-10-15] MEDS: InsuLIN REG 1unit/0.01ml Soln (100units/ml) SC SCH ×4 (06:29→22:56)
[2018-10-15] MEDS: ACCU-CHEK COMFORT CURVE STRIP VI SCH ×4 (06:29→22:56)
[2018-10-15] MEDS: GABAPENTIN 100 MG CAP PO SCH ×3 (06:29→22:54)
--- NOTE | 2018-10-15 07:05 | NUR ---
Closing Note Patient sitting up in bed, awake and alert. No s/s of distress. 10 ml of sanguinous drainage noted in chest tube. Care endorsed to dayshift RN.
--- NOTE | 2018-10-15 07:15 | NUR ---
Call to pharmacy Alerted pharmacy staff of new allergy to Doxycycline and that it was still appearing in the patient's chart. Pharmacy staff verbalized understanding, asked RN to speak with doctor regarding antibiotic. Waleska Larios RN aware.
[2018-10-15] MEDS: NICOTINE 21MG/24 HR TOPICAL PATCH TD SCH (09:28)
[2018-10-15] MEDS: PANTOPRAZOLE 40 MG TAB PO SCH (09:29)
[2018-10-15] MEDS: ASPirin-EC 81 mg tab PO SCH (09:29)
[2018-10-15 09:40] VITALS: BP 123/62
--- NOTE | 2018-10-15 10:43 | NUR ---
PT Patient refused to be OOB during PT visit and stated "the MD does not want me to get OOB" BRODY Larios was with this PTT and witnessed pt's refusal. Addendum: 10/15/18 at 1044 by SHEILA BRO PTT Amended: Links added.
[2018-10-15 12:08] VITALS: BP 118/72
[2018-10-15 13:00] VITALS: BP 150/71
[2018-10-15 14:09] LABS: Basophils # (auto) 0 uL; Basophils % (auto) 0.1 % (0.0-2.0); Eosinophils # (auto) 0 uL; Hematocrit 27.7 % (41.0-53.0); Hemoglobin 9.2 g/dL (13.5-17.5); Lymphocytes # (auto) 1.2 uL; Lymphocytes % (auto) 6.7 % (10.0-50.0); Mean Corpuscular Hemoglobin 29.8 pg (28.0-32.0); Mean Corpuscular Hgb Conc. 33.2 g/dL (32.0-36.0); Mean Corpuscular Volume 89.9 fL (80.0-100.0); Monocytes # (auto) 0.8 uL; Monocytes % (auto) 4.8 % (0.0-12.0); Neutrophils # (auto) 15.8 uL; Neutrophils % (auto) 88.4 % (37.0-80.0); Nucleated Red Blood Cells % 0.1 %; Platelet Count (auto) 288 10^3/uL (140-450); Red Blood Cells 3.08 10^6/uL (4.5-5.90); Red Cell Distribution Width 14.8 % (11.8-14.3); White Blood Cell 17.8 10^3/uL (4.4-10.8)
[2018-10-15 14:27] LABS: Albumin 2.3 g/dL (3.4-5.0); Potassium 3.6 mmol/L (3.5-5.1)
[2018-10-15 14:30] LABS: BUN/Creatinine Ratio 19.7; Bilirubin, Total 0.4 mg/dL (0.2-1.0); Total Protein 6.1 g/dL (6.4-8.2)
[2018-10-15 17:57] VITALS: BP 146/81
--- NOTE | 2018-10-15 18:16 | NUR ---
Radiology called regarding x-ray shows a small pneumothorax , Dr. Nuno notified, no new order at this time.
--- NOTE | 2018-10-15 19:45 | NUR ---
Opening Shift Note Assumed care of patient, awake and alert x4. No S/S of distress/SOB or pain. Bed in lowest locked position, side rails up x2, call light within reach. Chest tube noted to right chest, draining sanguinous drainage, marked drainage at 460 ml on chest tube, will continue to monitor. Instructed on POC and to call for assist PRN, will continue to monitor for changes Q1hr and PRN. Chest tube device remains sitting upright in bedside drawer, hooked to second drawer. Device still noted to be stable in this position and remains below chest tube incision site. Patient still refusing to have device taped to the floor, still reports he is concerned about it "falling over". Patient again educated on importance of device remaining upright and below incision site. Patient again verbalized understanding. Will continue to monitor.
[2018-10-15 21:51] VITALS: BP 148/63
[2018-10-15] MEDS: LORazepam 0.5 MG TAB PO PRN (22:54)
--- NOTE | 2018-10-15 23:00 | NUR ---
IV removal and insertion IV to left forearm DC'd with clean sterile technique, catheter fully intact. Pressure dressing applied to site. Patient tolerated well. IV access obtained by Kristy SKINNER, via clean sterile technique by inserting 20 gauge catheter at right hand after one attempt. IV secured properly. No trauma to site. Patient tolerated well. Will continue to monitor.
--- NOTE | 2018-10-15 23:30 | NUR ---
Bed Entered room to find patient's bed elevated with one side rail down, still in locked position. Patient again educated on importance of keep bed in the lowest position with side rail up, patient continuing to refuse at this time. No s/s of distress, will continue to monitor.
[2018-10-16] MEDS: HYDROmorphone HCL 2 MG/ML VL IV PRN ×3 (03:17→20:56)
[2018-10-16 04:52] VITALS: BP 105/68
[2018-10-16] MEDS: ACYCLOVIR SOD 50MG/ML 500 MG in D5W 5% 100 ML IV SCH ×3 (05:28→20:56)
[2018-10-16 06:04] LABS: Hemoglobin 7.4 g/dL (13.5-17.5)
[2018-10-16 06:06] LABS: Hematocrit 22.2 % (41.0-53.0); Mean Corpuscular Hgb Conc. 33.3 g/dL (32.0-36.0); Mean Corpuscular Volume 89.9 fL (80.0-100.0); Platelet Count (auto) 239 10^3/uL (140-450); Red Blood Cells 2.47 10^6/uL (4.5-5.90); Red Cell Distribution Width 14.4 % (11.8-14.3); White Blood Cell 15.5 10^3/uL (4.4-10.8)
[2018-10-16 06:10] LABS: Band Neutrophils % (manual) 0; Basophils % (manual) 0 (0.0-2.0); Blast Cells 0; Eosinophils % (manual) 0 (0-7); Metamyelocytes % 0; Myelocytes % 0; Promyelocytes % 0; Reactive Lymphocytes 0
[2018-10-16] MEDS: LABETALOL HCL 200 MG TAB PO SCH ×3 (06:37→21:55)
[2018-10-16 06:39] LABS: Lymphocytes % (manual) 4 (10.0-50.0); Monocytes % (manual) 3 (0-12)
[2018-10-16] MEDS: GABAPENTIN 100 MG CAP PO SCH ×3 (06:56→21:54)
[2018-10-16] MEDS: ACCU-CHEK COMFORT CURVE STRIP VI SCH ×4 (06:56→21:56)
[2018-10-16] MEDS: methylPREDNISolone SOD SUCC 40 MG/ML VL IV SCH ×3 (06:56→21:54)
[2018-10-16] MEDS: InsuLIN REG 1unit/0.01ml Soln (100units/ml) SC SCH ×4 (06:57→21:56)
[2018-10-16] MEDS: PIPERACILLIN-TAZOB 3.375GM 100 ML IV SCH ×3 (07:01→18:00)
[2018-10-16] MEDS: IPRATROPIUM BROM 0.5 MG/2.5ML INH SOL NEB SCH ×3 (07:02→20:12)
[2018-10-16] MEDS: ALBUTEROL SULF 2.5 MG/0.5ML(0.5%) NEB SOLN NEB SCH ×3 (07:02→20:12)
--- NOTE | 2018-10-16 07:30 | NUR ---
Closing Note Patient sitting up in bed, awake and alert. No s/s of distress. Sanguinous drainage remains at 460 ml in chest tube. Care endorsed to dayshift RN.
--- NOTE | 2018-10-16 08:30 | NUR ---
Opening Shift Note Assumed care of patient, awake and alert. No S/S of distress/SOB or pain. Instructed on POC and to call for assist PRN, will continue to monitor for changes Q1hr and PRN.
[2018-10-16] MEDS: PANTOPRAZOLE 40 MG TAB PO SCH (08:55)
[2018-10-16] MEDS: D5W/SOD CHL 0.45% 1,000 ML IV SCH ×2 (08:55→21:17)
[2018-10-16] MEDS: ASPirin-EC 81 mg tab PO SCH (08:55)
[2018-10-16] MEDS: NICOTINE 21MG/24 HR TOPICAL PATCH TD SCH (08:55)
[2018-10-16 09:00] VITALS: BP 118/72
[2018-10-16] MEDS: LORazepam 0.5 MG TAB PO PRN (11:37)
[2018-10-16 13:00] VITALS: BP 142/72
--- NOTE | 2018-10-16 18:00 | NUR ---
Administered Zosyn dose 3.375 mg IV at 1800.
--- NOTE | 2018-10-16 18:10 | NUR ---
patient requested Nicotine patch 14 gm , Dr Yaakov ward received a new order, noted and carried out.
[2018-10-16 18:16] VITALS: BP 151/91
--- NOTE | 2018-10-16 19:30 | NUR ---
Opening Shift Note Assumed care of patient, awake and alert x4. No S/S of distress/SOB. Reporting 8/10 pain to incision site on right chest, will medicate as ordered. Bed in lowest locked position, side rails up x2, call light within reach. at bedside. Chest tube noted to right chest, draining sanguinous drainage, marked drainage at 500 ml on chest tube, will continue to monitor. Instructed on POC and to call for assist PRN, will continue to monitor for changes Q1hr and PRN. Chest tube device remains sitting upright and taped to IV pole. Device noted to be stable in this position and remains below chest tube incision site. Patient still refusing to have device taped to the floor, still reports he is concerned about it "falling over". Patient again educated on importance of device remaining upright and below incision site. Patient again verbalized understanding. Will continue to monitor.
[2018-10-16 21:52] VITALS: BP 123/69
[2018-10-17] MEDS: PIPERACILLIN-TAZOB 3.375GM 100 ML IV SCH ×4 (00:09→17:50)
[2018-10-17] MEDS: ALBUTEROL SULF 2.5 MG/0.5ML(0.5%) NEB SOLN NEB SCH ×4 (00:38→19:57)
[2018-10-17] MEDS: IPRATROPIUM BROM 0.5 MG/2.5ML INH SOL NEB SCH ×4 (00:38→19:57)
[2018-10-17] MEDS: HYDROmorphone HCL 2 MG/ML VL IV PRN ×3 (01:20→18:48)
[2018-10-17 04:58] VITALS: BP 119/72
[2018-10-17] MEDS: ACYCLOVIR SOD 50MG/ML 500 MG in D5W 5% 100 ML IV SCH ×3 (05:09→21:09)
[2018-10-17] MEDS: methylPREDNISolone SOD SUCC 40 MG/ML VL IV SCH ×3 (05:38→21:09)
[2018-10-17] MEDS: GABAPENTIN 100 MG CAP PO SCH ×3 (05:38→21:09)
[2018-10-17] MEDS: LABETALOL HCL 200 MG TAB PO SCH ×3 (05:40→21:10)
[2018-10-17] MEDS: ACCU-CHEK COMFORT CURVE STRIP VI SCH ×4 (05:40→21:40)
[2018-10-17] MEDS: InsuLIN REG 1unit/0.01ml Soln (100units/ml) SC SCH ×4 (06:58→21:41)
--- NOTE | 2018-10-17 07:30 | NUR ---
Closing Note Patient sitting up in bed, awake and alert. No s/s of distress. Sanguinous drainage remains at 500 ml in chest tube. Care endorsed to dayshift RN.
[2018-10-17] MEDS: NICOTINE 14 MG/24HR TOPICAL PATCH TD SCH (08:59)
[2018-10-17] MEDS: PANTOPRAZOLE 40 MG TAB PO SCH (08:59)
[2018-10-17] MEDS: ASPirin-EC 81 mg tab PO SCH (08:59)
[2018-10-17 09:00] VITALS: BP 136/74
[2018-10-17] MEDS: D5W/SOD CHL 0.45% 1,000 ML IV SCH (10:40)
--- NOTE | 2018-10-17 11:20 | NUR ---
PT Patient refused to be OOB or do PT during visit, stated that as per MD no strenuous physical activities. Educated pt that no specific notes made by MD stating restrictions on doing PT but pt still refused. BRODY Larios notified of pt's refusal. Addendum: 10/17/18 at 1126 by SHEILA BRO PTT Amended: Links added.
[2018-10-17 13:00] VITALS: BP 154/90
--- NOTE | 2018-10-17 13:45 | NUR ---
IV insertion IV access obtained, via clean sterile technique by inserting 22 gauge catheter at after attempt(s). IV secured properly. No trauma to site. Patient tolerated well.
[2018-10-17 17:00] VITALS: BP 187/104
[2018-10-17] MEDS: cloNIDine HCL 0.1 MG TAB PO PRN ×2 (18:02→18:34)
--- NOTE | 2018-10-17 20:15 | NUR ---
RECEIVED PATIENT IN BED, AAOX4. NO DISTRESS NOTED. AFEBRILE. WILL CHANGE PATIENT'S CHEST TUBE SITE DRESSING. DENIES ANY PAIN. NO SOB NOTED. WITH RIGHT CHEST TUBE NOTED. NO SUBCUTANEOUS EMPHYSEMA NOTED. WILL KEEP AN EYE ON PATIENT. POCS DISCUSSED WITH PATIENT AND SHOWED UNDERSTANDING. BED KEPT ON LOWEST POSITION. SIDE RAILS UP. CALL LIGHT/TABLE IN REACH. KEPT COMFORTABLE.
[2018-10-17] MEDS: LORazepam 0.5 MG TAB PO PRN (21:10)
[2018-10-17 21:52] VITALS: BP 143/86
[2018-10-18] MEDS: HYDROmorphone HCL 2 MG/ML VL IV PRN ×3 (00:20→20:07)
[2018-10-18] MEDS: PIPERACILLIN-TAZOB 3.375GM 100 ML IV SCH ×5 (01:17→23:41)
[2018-10-18] MEDS: D5W/SOD CHL 0.45% 1,000 ML IV SCH ×2 (01:17→13:20)
[2018-10-18 05:00] VITALS: BP 113/64
[2018-10-18] MEDS: ACYCLOVIR SOD 50MG/ML 500 MG in D5W 5% 100 ML IV SCH ×3 (05:17→20:07)
[2018-10-18] MEDS: methylPREDNISolone SOD SUCC 40 MG/ML VL IV SCH ×3 (05:41→20:07)
[2018-10-18] MEDS: GABAPENTIN 100 MG CAP PO SCH ×3 (05:41→20:07)
[2018-10-18] MEDS: LABETALOL HCL 200 MG TAB PO SCH ×3 (05:42→20:08)
[2018-10-18] MEDS: InsuLIN REG 1unit/0.01ml Soln (100units/ml) SC SCH ×4 (05:42→22:00)
[2018-10-18] MEDS: ACCU-CHEK COMFORT CURVE STRIP VI SCH ×4 (05:42→21:59)
[2018-10-18] MEDS: IPRATROPIUM BROM 0.5 MG/2.5ML INH SOL NEB SCH ×4 (06:52→20:09)
[2018-10-18] MEDS: ALBUTEROL SULF 2.5 MG/0.5ML(0.5%) NEB SOLN NEB SCH ×4 (06:52→20:09)
--- NOTE | 2018-10-18 07:03 | NUR ---
ON BED, AWAKE. STABLE. NO DISTRESS NOTED. FOR MORE CARE AND MANAGEMENT.
--- NOTE | 2018-10-18 07:12 | NUR ---
Respiratory note:SCHED MED NEB TX HELD: FOUND PATIENT IN RESTROOM, WAITED FOR PATIENT OUTSIDE OF RESTROOM FOR 10 MIN AFTER STATING HE WAS GOING TO TAKE 5 MINS LONGER, PATIENT WOULD NOT COME OUT OF RESTROOM SO ASKED IF ANY SOB AND PATIENT STATED NO. INFORMED PATIENT TO ASK RN IF PATIENT HAS ANY SOB. UNABLE TO ASSES PATIENT CORRECTLY WILL FOLLOW THROUGH NEXT ROUND TO VERIFY NO SOB OR RESP DISTRESS NOTED.
[2018-10-18 09:00] VITALS: BP_SYST 130; BP_SYST 94; BP_DIAS 55; BP_DIAS 74
[2018-10-18] MEDS: ASPirin-EC 81 mg tab PO SCH (09:45)
[2018-10-18] MEDS: PANTOPRAZOLE 40 MG TAB PO SCH (09:45)
[2018-10-18] MEDS: NICOTINE 14 MG/24HR TOPICAL PATCH TD SCH (09:45)
[2018-10-18 11:06] VITALS: BP 132/71
--- NOTE | 2018-10-18 11:13 | NUR ---
PT Patient refused to be OOB again despite education provided on benefits of PT. BRODY Larios was notified of pt's refusal. Addendum: 10/18/18 at 1114 by SHEILA BRO PTT Amended: Links added.
[2018-10-18 13:00] VITALS: BP 147/74
[2018-10-18 17:00] VITALS: BP 146/75
[2018-10-18] MEDS: ONDANSETRON HCL 4 MG/2 ML VIAL IV PRN (20:07)
[2018-10-18] MEDS: LORazepam 0.5 MG TAB PO PRN (20:08)
--- NOTE | 2018-10-18 20:15 | NUR ---
RECEIVED PATIENT IN BED, AAOX4. FAMILY IS IN THE ROOM. NO DISTRESS NOTED. NO SOB NOTED. COMPLAINED OF CHEST TUBE SITE PAIN. WILL MEDICATE PATIENT. PATIENT IS ANXIOUS WELL. POCS DISCUSSED WITH PATIENT AND SHOWED UNDERSTANDING. CHEST TUBE SITE IS WITH A CLEAN DRESSING AND IS INTACT. ADVISED PATIENT TO AVOID TOUCHING THE CHEST TUBE CATHETER. POCS DISCUSSED WITH PATIENT AND SHOWED UNDERSTANDING. BED KEPT ON LOWEST POSITION. SIDE RAILS UP. CALL LIGHT/TABLE IN REACH. KEPT COMFORTABLE.
--- NOTE | 2018-10-18 20:30 | NUR ---
NOTED THAT CHEST TUBE IS INTACT AND IS CONNECTED TO 20 CM SUCTION CONTINUOUSLY PER ORDERED BY MD. MILD BUBBLING IS NOTED IN THE CANISTER. MD IS AWARE. ALL CONNECTIONS ARE WORKING INCLUDING THE ON AND OFF BUTTON OF THE WALL CANISTER. NOTED.
[2018-10-18 22:00] VITALS: BP 157/95
--- NOTE | 2018-10-19 00:10 | NUR ---
PATIENT IS BACK FROM THE ER LOBBY TO HIS ROOM AND COMPLAINED THAT THE SUCTION BUTTON IS ON OFF MODE. HE SAID THAT HE SUDDENLY FELT SHORT OF BREATH AND FOUND OUT THAT THE SUCTION SWITCH IS TURNED OFF. CHECKED THE CONNECTIONS AND EVERYTHING WAS RIGHT EXCEPT THE ON AND OFF SWITCH OF THE SUCTION CANISTER. EXPLAINED TO PATIENT THAT I DO NOT HAVE ANY IDEA WHY THAT SWITCH WAS TURNED OFF NOW AND EVERYTHING WAS FINE BEFORE HE WENT FOR A WALK. ADVISED PATIENT THAT I WILL LET THE MD KNOW ABOUT THIS. AND HE EVEN MENTIONED THAT WHY WAS THERE A CONTINUOS BUBBLING IN THE CHAMBER. EXPLAINED TO PATIENT THAT CONTINUOUS BUBBLING SIGNIFIES AIR LEAK TO WHICH IS THE CASE RIGHT NOW AND MD IS AWARE OF THIS. PATIENT SHOWED UNDERSTANDING.
[2018-10-19] MEDS: ALBUTEROL SULF 2.5 MG/0.5ML(0.5%) NEB SOLN NEB SCH ×4 (00:41→19:46)
[2018-10-19] MEDS: IPRATROPIUM BROM 0.5 MG/2.5ML INH SOL NEB SCH ×4 (00:41→19:46)
[2018-10-19] MEDS: D5W/SOD CHL 0.45% 1,000 ML IV SCH ×2 (03:04→16:25)
[2018-10-19] MEDS: HYDROmorphone HCL 2 MG/ML VL IV PRN ×5 (03:29→20:38)
[2018-10-19] MEDS: ACYCLOVIR SOD 50MG/ML 500 MG in D5W 5% 100 ML IV SCH ×3 (05:06→21:16)
[2018-10-19] MEDS: GABAPENTIN 100 MG CAP PO SCH ×3 (05:29→21:25)
[2018-10-19] MEDS: PIPERACILLIN-TAZOB 3.375GM 100 ML IV SCH ×3 (05:29→18:24)
[2018-10-19] MEDS: methylPREDNISolone SOD SUCC 40 MG/ML VL IV SCH ×3 (05:29→21:25)
[2018-10-19] MEDS: ACCU-CHEK COMFORT CURVE STRIP VI SCH ×4 (05:30→21:33)
[2018-10-19] MEDS: LABETALOL HCL 200 MG TAB PO SCH ×3 (05:30→21:31)
[2018-10-19] MEDS: InsuLIN REG 1unit/0.01ml Soln (100units/ml) SC SCH ×4 (05:31→21:34)
[2018-10-19 05:48] VITALS: BP 134/78
--- NOTE | 2018-10-19 06:11 | NUR ---
ON BED, ASLEEP. STABLE. NO DISTRESS NOTED. FOR MORE CARE AND MANAGEMENT.
[2018-10-19 08:37] VITALS: BP 126/75
[2018-10-19] MEDS: NICOTINE 14 MG/24HR TOPICAL PATCH TD SCH (10:00)
[2018-10-19] MEDS: ASPirin-EC 81 mg tab PO SCH (11:16)
[2018-10-19] MEDS: PANTOPRAZOLE 40 MG TAB PO SCH (11:16)
[2018-10-19 12:41] VITALS: BP 189/113
[2018-10-19] MEDS: cloNIDine HCL 0.1 MG TAB PO PRN (12:43)
--- NOTE | 2018-10-19 12:57 | NUR ---
PT Patient continue to refuse OOB activities or PT during visit for several days already. Patient non-compliant, D/C to nursing. Addendum: 10/19/18 at 1258 by SHEILA BRO PTT Amended: Links added.
--- NOTE | 2018-10-19 15:30 | NUR ---
Nutrition Follow-up Notes Wt.: 72.1 kg as yesterday. Pt's asleep, no immediate family member at bedside during rounds this morning. Pt's no signs of distress noted earlier, on Consistent Carb diet with adequate PO intake aeb 95% ave, consumed meals (x6) in last 2.5 days. Est. Needs BW [id number] kcal (23-25 kcal/kgBW), 80-96 gms pro (1.0-1.2 gms/kgBW). Will continue to monitor pertinent labs and reassess nutrient need prn Labs: POC Gluc 74 wnl; 10/15/18 Gluc 151 H, Ca 8.0 L, Tpro 6.1 L, Alb 2.3 L Skin: Nitin scale 20, low risk, pt's right chest tube incision dry and intact per bi lead. GI: Pt had 4x BM 10/18/18 per bi lead. PES: Altered nutrition related lab values r/t current/chronic medical condition aeb elev BUN, hyperglycemia Will continue to monitor PO intake, skin status, pertinent labs and weight trend. F/u in 3 to 5 days. Rec.: 1.) Continue close supervision during meals. 2.) If Albumin level continues trending down, consider Prostat 1 pkt BID. 3.) Refer pt to CDE/RD for further nutrition education and weight monitoring upon discharge. 4.) Continue current plan of care.
--- NOTE | 2018-10-19 16:20 | NUR ---
iv dressing change Iv leaking to left forearm. Dressing changed, but leaking continues and shows signs of infiltration. will place a new IV.
--- NOTE | 2018-10-19 16:54 | NUR ---
IV insertion IV access obtained, via clean sterile technique by inserting 20 gauge catheter at right hand after 3 attempt(s). IV secured properly. No trauma to site. Patient tolerated well.
[2018-10-19 17:09] VITALS: BP 160/100
[2018-10-19 21:52] VITALS: BP 140/79
[2018-10-20] MEDS: PIPERACILLIN-TAZOB 3.375GM 100 ML IV SCH ×4 (01:00→17:39)
[2018-10-20] MEDS: HYDROmorphone HCL 2 MG/ML VL IV PRN ×8 (01:05→21:46)
[2018-10-20] MEDS: ALBUTEROL SULF 2.5 MG/0.5ML(0.5%) NEB SOLN NEB SCH ×4 (01:15→19:52)
[2018-10-20] MEDS: IPRATROPIUM BROM 0.5 MG/2.5ML INH SOL NEB SCH ×4 (01:15→19:52)
[2018-10-20 04:47] VITALS: BP 122/70
[2018-10-20] MEDS: D5W/SOD CHL 0.45% 1,000 ML IV SCH ×2 (05:20→17:39)
[2018-10-20] MEDS: ACYCLOVIR SOD 50MG/ML 500 MG in D5W 5% 100 ML IV SCH ×3 (06:10→21:45)
[2018-10-20] MEDS: GABAPENTIN 100 MG CAP PO SCH ×3 (06:14→21:52)
[2018-10-20] MEDS: methylPREDNISolone SOD SUCC 40 MG/ML VL IV SCH ×3 (06:16→21:46)
[2018-10-20] MEDS: LABETALOL HCL 200 MG TAB PO SCH ×3 (06:52→21:55)
[2018-10-20] MEDS: ACCU-CHEK COMFORT CURVE STRIP VI SCH ×4 (06:57→23:00)
[2018-10-20] MEDS: InsuLIN REG 1unit/0.01ml Soln (100units/ml) SC SCH ×4 (06:58→23:00)
--- NOTE | 2018-10-20 08:00 | NUR ---
Opening Shift Note Assumed care of patient, awake and alert. No S/S of distress/SOB or pain. Patient had no complaints about pain. The patient's bed was elevated above the ground. He states that he likes the bed high but lowers it when he needs to ambulate out of bed. He refused to lower the bed. The patient was educated about the risks of falling due to his bed being so high. The patient acknowledge and understands risks. Instructed on POC and to call for assist PRN, will continue to monitor for changes Q1hr and PRN.
[2018-10-20 09:00] VITALS: BP 144/79
[2018-10-20] MEDS: PANTOPRAZOLE 40 MG TAB PO SCH (09:53)
[2018-10-20] MEDS: ASPirin-EC 81 mg tab PO SCH (09:53)
[2018-10-20] MEDS: NICOTINE 14 MG/24HR TOPICAL PATCH TD SCH (09:58)
[2018-10-20 13:00] VITALS: BP 194/110
--- NOTE | 2018-10-20 14:50 | NUR ---
Dressing applied to patients right thorax. minimal sanguinous drainage noted. gauze placed all around the chest tube entry. secured with medipore tape. patient tolerated well. will continue to monitor dressing.
[2018-10-20 17:00] VITALS: BP 193/103
[2018-10-20] MEDS: cloNIDine HCL 0.1 MG TAB PO PRN (17:40)
--- NOTE | 2018-10-20 19:30 | NUR ---
Opening shift note Patient in bed alert and oriented x 4, verbally coherent, able to make needs known. Patient with family and friends at bedside. Plan of care discussed, patient verbalized understanding. All needs attended, will continue to monitor.
--- NOTE | 2018-10-20 22:38 | NUR ---
Patient seen getting out of the room with spouse. RN approached patient while at the hallway and informed pt nurse still has to take his blood sugar level. Patient replied "I am just walking my out, son of a bitch!" RN replied "you do not have to use that word at me" Patient replied "what did I say?" RN replied "you just said son of a bitch" Patient replied "I didn't say that" both patient and laughed and continued walking down the yus[address] way.
--- NOTE | 2018-10-20 23:00 | NUR ---
Patient back in the room and noted patient in bed A has transferred room. Patient stated " I am that bad that you need to transfer him (referring to patient bed A) to another room?" RN replied "I am not in liberty to discuss anything about patient on bed A. I am here to check your blood sugar level" Patient replied "You don't have to check my sugar, just get out of here!" RN left room per patient request.
[2018-10-21] VITALS (8 sets, daily range): BP systolic 125–167; BP diastolic 73–87
[2018-10-21] MEDS: ALBUTEROL SULF 2.5 MG/0.5ML(0.5%) NEB SOLN NEB SCH ×4 (00:41→19:55)
[2018-10-21] MEDS: IPRATROPIUM BROM 0.5 MG/2.5ML INH SOL NEB SCH ×4 (00:41→19:55)
[2018-10-21] MEDS: PIPERACILLIN-TAZOB 3.375GM 100 ML IV SCH ×3 (00:48→11:50)
[2018-10-21] MEDS: HYDROmorphone HCL 2 MG/ML VL IV PRN ×3 (03:35→11:19)
[2018-10-21] MEDS: ACYCLOVIR SOD 50MG/ML 500 MG in D5W 5% 100 ML IV SCH ×2 (05:00→14:17)
[2018-10-21] MEDS: methylPREDNISolone SOD SUCC 40 MG/ML VL IV SCH ×2 (06:29→14:17)
[2018-10-21] MEDS: GABAPENTIN 100 MG CAP PO SCH ×3 (06:30→22:14)
[2018-10-21] MEDS: LABETALOL HCL 200 MG TAB PO SCH ×3 (06:31→22:14)
[2018-10-21] MEDS: ACCU-CHEK COMFORT CURVE STRIP VI SCH ×4 (06:31→22:14)
[2018-10-21] MEDS: InsuLIN REG 1unit/0.01ml Soln (100units/ml) SC SCH ×4 (06:32→22:00)
--- NOTE | 2018-10-21 08:32 | NUR ---
Spoke to radiologist who informed me about the patient's CXR results. States that the patient's right Pneumothorax has mildly increased. Paged Dr. Torres to discuss the results.
[2018-10-21] MEDS: D5W/SOD CHL 0.45% 1,000 ML IV SCH (08:34)
--- NOTE | 2018-10-21 08:45 | NUR ---
Opening Shift Note Assumed care of patient. The pt is awake, alert and eating breakfast. No S/S of distress/SOB or pain. The pt's bed was elevated. Asked the pt to lower bed but he refused to do so. Discussed and educated the pt about the risks of having his gurney at an elevated position. He states that he understands the risk of having his bed elevated. Instructed on POC and to call for assist PRN, will continue to monitor for changes Q1hr and PRN.
[2018-10-21] MEDS: NICOTINE 14 MG/24HR TOPICAL PATCH TD SCH (11:00)
[2018-10-21] MEDS: PANTOPRAZOLE 40 MG TAB PO SCH (11:18)
[2018-10-21] MEDS: ASPirin-EC 81 mg tab PO SCH (11:18)
--- NOTE | 2018-10-21 12:22 | NUR ---
BRODY Gr spoke to Dr. Torres who states that he is aware of the results. He will evaluate the patient.
[2018-10-21] MEDS: HYDROcodone-ACET 10/325MG TAB PO PRN ×2 (16:02→23:57)
[2018-10-21] MEDS: LORazepam 0.5 MG TAB PO PRN (17:43)
--- NOTE | 2018-10-21 19:50 | NUR ---
OPENING NOTES RECEIVED REPORT FROM DAY SHIFT NURSE. PATIENT IS AWAKE AND ALERT X 4 WITH NO S/S OF DISTRESS NOR PAIN. PT HAS HEIMLICH CATHETER ON RT LATERAL CHEST WITH NO VISIBLE FLUID. BED IS IN LOWEST POSITION WITH SIDE RAILS UP X 2 AND BED BRAKES LOCKED. CALL LIGHT IS WITHIN REACH. DISCUSSED POC WITH PATIENT AND PT VERBALIZED UNDERSTANDING. WILL MONITOR Q1HR.
--- NOTE | 2018-10-21 20:00 | NUR ---
IV ACCESS PT DOES NOT HAVE AN IV, DISCUSS RISK AND BENEFITS OF IV ACCESS PT VERBALIZED UNDERSTANDING AND PT STILL REFUSED TO COMMENCE IV ACCESS. MD NELSON HAS BEEN AWARE OF THIS AND HAS AN ORDER THAT NO IV IS ACCEPTABLE.
[2018-10-22] MEDS: ALBUTEROL SULF 2.5 MG/0.5ML(0.5%) NEB SOLN NEB SCH ×4 (00:02→18:39)
[2018-10-22] MEDS: IPRATROPIUM BROM 0.5 MG/2.5ML INH SOL NEB SCH ×4 (00:02→18:39)
[2018-10-22 05:19] VITALS: BP 144/76
[2018-10-22] MEDS: GABAPENTIN 100 MG CAP PO SCH ×3 (05:30→21:27)
[2018-10-22] MEDS: LABETALOL HCL 200 MG TAB PO SCH ×3 (05:31→21:58)
[2018-10-22] MEDS: InsuLIN REG 1unit/0.01ml Soln (100units/ml) SC SCH ×4 (06:57→21:26)
[2018-10-22] MEDS: ACCU-CHEK COMFORT CURVE STRIP VI SCH ×4 (06:57→21:26)
--- NOTE | 2018-10-22 07:44 | NUR ---
paged doctor jose paged to confirm orders for chest xray. awaiting call back, will endorse to day shift
--- NOTE | 2018-10-22 08:00 | NUR ---
Opening Shift Note Assumed care of patient, awake and alert. No S/S of distress/SOB or pain. Instructed on POC and to call for assist PRN, will continue to monitor for changes Q1hr and PRN. Patients bed is in the highest position with right side rails down. Patient educated that the bed should be in the lowest position for safety precautions. Patient verbalized understanding but states that he would like the bed up to "look out of the window." PT DOES NOT HAVE AN IV, DISCUSS RISK AND BENEFITS OF IV ACCESS PT VERBALIZED UNDERSTANDING AND PT STILL REFUSED TO COMMENCE IV ACCESS. MD NELSON HAS BEEN AWARE OF THIS AND HAS AN ORDER THAT NO IV IS ACCEPTABLE.
[2018-10-22 09:00] VITALS: BP 115/64
[2018-10-22] MEDS: NICOTINE 14 MG/24HR TOPICAL PATCH TD SCH (10:00)
[2018-10-22] MEDS: PANTOPRAZOLE 40 MG TAB PO SCH (10:36)
[2018-10-22] MEDS: ASPirin-EC 81 mg tab PO SCH (10:37)
[2018-10-22] MEDS: HYDROcodone-ACET 10/325MG TAB PO PRN ×3 (10:37→20:29)
[2018-10-22] MEDS: predniSONE 20 MG TAB PO SCH (10:37)
--- NOTE | 2018-10-22 11:50 | NUR ---
Patient off of unit Patient off of unit. Patient has been paged overhead to return to room. Patient belongings (computer, pillow) are still in patient's room.
--- NOTE | 2018-10-22 12:06 | NUR ---
Patient off of unit Patient off of unit. Patient has been paged overhead to return to room. Patient belongings (computer, pillow) are still in patient's room.
--- NOTE | 2018-10-22 12:20 | NUR ---
Patient returns to unit. Patient states he went to "take his mom downstairs." Patient in stable condition. Patient educated to inform RN next time he leaves the unit. Patient verbalizes understanding.
[2018-10-22 13:00] VITALS: BP 170/95
--- NOTE | 2018-10-22 15:04 | NUR ---
Dr. Torres orders to take Dr. Torres orders to take Kelvin one way valve off and reconnect to 20cm lower suction water. Dr. Torres educates patient regarding intervention. This nurse attempts to complete intervention. Patient refuses intervention. Patient educated on risks of refusing intervention. Patient verbalizes understanding but states that he will not allow the intervention to completed until Dr. Torres talks to him again. Dr. Torres paged and states that he did educate patient regarding intervention. Dr. Torres aware of patient refusing intervention. Dr. Torres verbalizes understanding. Continue to monitor.
[2018-10-22] MEDS: cloNIDine HCL 0.1 MG TAB PO PRN (15:29)
--- NOTE | 2018-10-22 17:00 | NUR ---
Patient refusing assessment of vital signs Patient educated on importance of taking vital signs Patient verbalizes understanding Continue to monitor
--- NOTE | 2018-10-22 18:15 | NUR ---
Patient requesting to be hooked up to suction as ordered. Patient verbalizes that he would like to be hooked up to suction as ordered by Dr. Torres
--- NOTE | 2018-10-22 18:20 | NUR ---
Heimlich removed and connected to 20cm as ordered Heimlich removed and connected to 20cm as ordered with assistance by Charge nurse Kemp and Rancho. Patient educated on importance of leaving chest tube upright. Patient verbalizes understanding. Chest tube reinforced with assistance by Charge nurse Kemp and Rancho Patient tolerated well will continue to monitor. Addendum: 10/22/18 at 1847 by GRAYSON COCHRAN RN Error: Heimlich not removed. Charge nurse Rancho aware and states that she will pass it onto sample builder Charge nurse. will delegate to sample builder BRODY
--- NOTE | 2018-10-22 18:26 | NUR ---
Called/paged Dr. Torres called re:clarification of order: continuous or intermittent suction of chest tube. Waiting for call back. Continue care.
--- NOTE | 2018-10-22 18:31 | NUR ---
returned call Dr. Torres returned call, updated on patient status and reason for call, orders received for continuous suction. Continue care.
--- NOTE | 2018-10-22 18:35 | NUR ---
Patient placed on continuous suction. Patient tolerated well
--- NOTE | 2018-10-22 20:15 | NUR ---
paged Dr. Torres and awaiting call back for clarification on chest tube. per Aileen peck RN.
[2018-10-22 21:47] VITALS: BP 119/68
--- NOTE | 2018-10-22 23:50 | NUR ---
Chest tube dressing pt had the full dressing of his chest tube pulled off to the side. re dressed the chest tube site. gave pt ativan to relax him. notified chargemaster specialist Helen.
[2018-10-22] MEDS: LORazepam 0.5 MG TAB PO PRN (23:52)
[2018-10-23] MEDS: HYDROcodone-ACET 10/325MG TAB PO PRN ×4 (00:42→20:39)
--- NOTE | 2018-10-23 01:15 | NUR ---
PT CALLED AND I TOLD HER WE HAD GIVEN THE PAIN MEDICATIONS. I REINSURED HER THAT I WOULD LEAVE A NOTE FOR THE DR. NELSON AND DR. RUIZ.
--- NOTE | 2018-10-23 01:24 | NUR ---
LEFT NOTE OF PAPER CHART FOR DR. NELSON/ TO PLEASE CALL PT ABIODUN AT [phone]
--- NOTE | 2018-10-23 01:35 | NUR ---
ABIODUN CALLED AND TALKED TO WALKER.
--- NOTE | 2018-10-23 01:54 | NUR ---
TALKED TO SUSANNE CHARLTONDIAMOND DIE MAKER. HE TALKED TO HOSPITALIST, FRAN MESSINA. NEW ORDERS FOR MORPHINE IM. PERFORMANCE MAKEUP ARTIST WALKER TALKED OT TO INFORM HER.
--- NOTE | 2018-10-23 01:59 | NUR ---
PT COMPLAINING OF PAIN. NORCO GIVEN. ALSO GAVE PT A SANDWICH. Addendum: 10/23/18 at 0200 by Puja Burkett RN TIME WAS AT 0042
[2018-10-23] MEDS ORDERED: MORPHINE SULFATE 4 MG/ML SYR/VIAL IM ONE (02:00)
--- NOTE | 2018-10-23 04:14 | NUR ---
PT REFUSING VITAL SIGNS
[2018-10-23] MEDS: LABETALOL HCL 200 MG TAB PO SCH ×3 (06:00→21:36)
[2018-10-23] MEDS: GABAPENTIN 100 MG CAP PO SCH ×3 (06:00→21:35)
[2018-10-23] MEDS: ALBUTEROL SULF 2.5 MG/0.5ML(0.5%) NEB SOLN NEB SCH ×3 (06:00→13:40)
[2018-10-23] MEDS: IPRATROPIUM BROM 0.5 MG/2.5ML INH SOL NEB SCH ×3 (06:00→13:40)
--- NOTE | 2018-10-23 06:00 | NUR ---
PT REFUSING MEDICATIONS.
[2018-10-23] MEDS: InsuLIN REG 1unit/0.01ml Soln (100units/ml) SC SCH ×4 (06:44→21:37)
[2018-10-23] MEDS: ACCU-CHEK COMFORT CURVE STRIP VI SCH ×4 (06:44→21:36)
--- NOTE | 2018-10-23 07:40 | NUR ---
Opening Shift Note Assumed care of patient, awake and alert. No S/S of distress/SOB or pain. Instructed on POC and to call for assist PRN, will continue to monitor for changes. Chest tube in place and draining sanguineous fluid- start line at 30 ml, will continue to monitor to see total output for shift.
[2018-10-23 08:00] VITALS: BP 130/86
--- NOTE | 2018-10-23 08:50 | NUR ---
Patient refused to have bed lowered, informed increases fall risk yet continued to refuse. Chest tube dressing reinforced, patient tends to move a lot and tug at site, will continue to monitor.
[2018-10-23] MEDS: ASPirin-EC 81 mg tab PO SCH (09:34)
[2018-10-23] MEDS: PANTOPRAZOLE 40 MG TAB PO SCH (09:34)
[2018-10-23] MEDS: NICOTINE 14 MG/24HR TOPICAL PATCH TD SCH (09:34)
[2018-10-23] MEDS: predniSONE 20 MG TAB PO SCH (09:34)
--- NOTE | 2018-10-23 10:35 | NUR ---
Chest tube dressing reinforced, patient tends to move a lot and tug at site, will continue to monitor.
--- NOTE | 2018-10-23 11:29 | NUR ---
Patient back in his room and resting on bed. Chest tube site reassessed to see whether dressing needed to be reinforced. CT back on suction, will continue to monitor.
--- NOTE | 2018-10-23 11:59 | NUR ---
Patient signed AMA, patient walking off unit. Infomed him of risks and that he should stay in room since he jhas CT to suction. Patient had removed CT from suction and holding CT container. Will continue to monitor.
[2018-10-23 12:00] VITALS: BP 104/62
--- NOTE | 2018-10-23 13:18 | NUR ---
Chest tube dressing assessed to see if in place, dressing in place will continue to monitor.
--- NOTE | 2018-10-23 14:05 | NUR ---
Chest tube dressing assessed to see if in place, dressing in place will continue to monitor.
--- NOTE | 2018-10-23 15:55 | NUR ---
Chest tube dressing assessed to see if in place, dressing in place will continue to monitor.
[2018-10-23 16:00] VITALS: BP 99/68
--- NOTE | 2018-10-23 17:40 | NUR ---
Chest tube dressing assessed to see if in place, dressing reinforced and in place will continue to monitor.
--- NOTE | 2018-10-23 18:35 | NUR ---
Chest tube dressing assessed to see if in place, dressing in place will continue to monitor.
--- NOTE | 2018-10-23 19:28 | NUR ---
Patient care and report handed off to Mary SKINNER. Total output from chest tube 90ml of sanguineous fluid.
[2018-10-23] MEDS: LORazepam 0.5 MG TAB PO PRN (21:41)
[2018-10-23 22:00] VITALS: BP 145/68
[2018-10-24] MEDS: ALBUTEROL SULF 2.5 MG/0.5ML(0.5%) NEB SOLN NEB SCH ×4 (00:14→18:00)
[2018-10-24] MEDS: IPRATROPIUM BROM 0.5 MG/2.5ML INH SOL NEB SCH ×4 (00:15→18:00)
[2018-10-24] MEDS: HYDROcodone-ACET 10/325MG TAB PO PRN ×3 (02:23→19:04)
[2018-10-24] MEDS: LORazepam 0.5 MG TAB PO PRN (04:07)
[2018-10-24 05:43] VITALS: BP 116/66
[2018-10-24] MEDS: LABETALOL HCL 200 MG TAB PO SCH ×4 (06:20→23:06)
[2018-10-24] MEDS: GABAPENTIN 100 MG CAP PO SCH ×3 (06:20→21:12)
[2018-10-24] MEDS: ACCU-CHEK COMFORT CURVE STRIP VI SCH ×4 (06:26→21:13)
[2018-10-24] MEDS: InsuLIN REG 1unit/0.01ml Soln (100units/ml) SC SCH ×4 (06:26→21:13)
--- NOTE | 2018-10-24 06:41 | NUR ---
PATIENT'S CHEST TUBE TO CONTINUOUS WALL SUCTION, DRESSING CLEAN AND INTACT, OUT PUT IS 60ML, SANGUINOUS. PAIN RELIEVED WITH NORCO, AMBULATES, BLOOD SUGAR THIS MORNING IS 79.
--- NOTE | 2018-10-24 08:32 | NUR ---
opening patient in bed, bed in lowest position, call light within reach. Chest tube, in place cdi, suction on continuous low suction, no distress noted at this time Will f/u with morning assessment
[2018-10-24 08:52] VITALS: BP 97/57
[2018-10-24] MEDS: NICOTINE 14 MG/24HR TOPICAL PATCH TD SCH ×2 (10:00→10:29)
[2018-10-24] MEDS: predniSONE 20 MG TAB PO SCH (10:29)
[2018-10-24] MEDS: PANTOPRAZOLE 40 MG TAB PO SCH (10:29)
[2018-10-24] MEDS: ASPirin-EC 81 mg tab PO SCH (10:29)
--- NOTE | 2018-10-24 12:03 | NUR ---
PAGING MD NELSON PER PATIENTS HR OF 110-120 BLOOD PRESSURE HIGH 90s
--- NOTE | 2018-10-24 12:05 | NUR ---
PAGING MD NELSON ALSO ABOUT PATIENTS CURRENT H & H LAST DRAWN 10/16 HGB 7.4
--- NOTE | 2018-10-24 12:24 | NUR ---
Nutrition Follow-up Notes Wt.: 77.9 kg Pt's asleep, no immediate family member at bedside during rounds this morning. Pt's no signs of distress noted earlier, on Consistent Carb diet with adequate PO of 100% x 2 days per RN doc Est. Needs BW [id number] kcal (23-25 kcal/kgBW), 80-96 gms pro (1.0-1.2 gms/kgBW). Will continue to monitor pertinent labs and reassess nutrient need prn Labs: POC Gluc 132 wnl; 10/15/18 Gluc 151 H, Ca 8.0 L, Tpro 6.1 L, Alb 2.3 L Skin: Nitin scale 23, low risk, pt's right chest tube incision dry and intact per pnp. GI: Pt had 1 BM today per pnp. PES: Altered nutrition related lab values r/t current/chronic medical condition aeb elev BUN, hyperglycemia Will continue to monitor PO intake, skin status, pertinent labs and weight trend. F/u in 3 to 5 days. Rec.: 1.) Continue close supervision during meals. 2.) If Albumin level continues trending down, consider Prostat 1 pkt BID. 3.) Refer pt to CDE/RD for further nutrition education and weight monitoring upon discharge. 4.) Continue current plan of care.
[2018-10-24 13:00] VITALS: BP 93/65
[2018-10-24 16:52] VITALS: BP 100/74
--- NOTE | 2018-10-24 19:00 | NUR ---
CLOSING UNABLE TO GET NEW IV FOR TRANSFUSION OF BLOOD, ENDORSED CARE TO NOC NURSE TO TRANSFUSE. PATIENT ON CONTINUOUS LOW SUCTION, 150 ML OUT. WILL ENDORSE CARE TO NOC NURSE
--- NOTE | 2018-10-24 20:00 | NUR ---
IV insertion IV access obtained, via clean sterile technique by inserting #20 gauge catheter at LEFT FOREARM after 1 attempt(s). IV secured properly. No trauma to site. Patient tolerated well. NOTE:
--- NOTE | 2018-10-24 20:05 | NUR ---
PT ASSESSED FOR TX. TX HELD AT THIS TIME DUE TO ELEVATED HR OF 145. PT DENIES SOB AT THIS TIME. WILL CONTINUE TO MONITOR AND WILL REASSESS FOR NEXT SCHEDULED TX.
[2018-10-24 20:22] LABS: Basophils # (auto) 0 uL; Basophils % (auto) 0.2 % (0.0-2.0); Eosinophils # (auto) 0.1 uL; Eosinophils % (auto) 0.4 % (0.0-7.0); Hematocrit 31.8 % (41.0-53.0); Hemoglobin 10.5 g/dL (13.5-17.5); Lymphocytes % (auto) 8.7 % (10.0-50.0); Mean Corpuscular Hemoglobin 31.8 pg (28.0-32.0); Mean Corpuscular Hgb Conc. 33.1 g/dL (32.0-36.0); Monocytes # (auto) 0.8 uL; Monocytes % (auto) 6.8 % (0.0-12.0); Neutrophils # (auto) 10.1 uL; Neutrophils % (auto) 83.9 % (37.0-80.0); Nucleated Red Blood Cells % 0.1 %; Platelet Count (auto) 235 10^3/uL (140-450); Red Blood Cells 3.31 10^6/uL (4.5-5.90); White Blood Cell 12.1 10^3/uL (4.4-10.8)
[2018-10-24 20:29] LABS: Red Cell Distribution Width 23.3 % (11.8-14.3)
--- NOTE | 2018-10-24 20:45 | NUR ---
PAGEHarleen NELSON TO LET HIM KNOW OF LATEST H&H RESULT WHICH IS 1. Addendum: 10/24/18 at 2053 by LILY BRUNER RN RN RACHELLE NELSON TO NOTIFY OF PATIENT'S LATEST H&H OF 10.5/31.8. NEED TO CLARIFY IF BLOOD TRANSFUSION NEED TO BE DONE TONIGHT.AWAITING FOR CALL.
[2018-10-24] MEDS: MORPHINE SULFATE 4 MG/ML SYR/VIAL IM PRN (20:59)
--- NOTE | 2018-10-24 21:19 | NUR ---
PER DR. NELSON, NO TRANSFUSION NEEDED TONIGHT.
[2018-10-24 22:00] VITALS: BP 112/63
[2018-10-25] VITALS (7 sets, daily range): BP systolic 96–123; BP diastolic 61–80
[2018-10-25] MEDS: ALBUTEROL SULF 2.5 MG/0.5ML(0.5%) NEB SOLN NEB SCH ×4 (00:20→19:56)
[2018-10-25] MEDS: IPRATROPIUM BROM 0.5 MG/2.5ML INH SOL NEB SCH ×4 (00:20→19:56)
[2018-10-25] MEDS: HYDROcodone-ACET 10/325MG TAB PO PRN ×5 (01:06→22:46)
[2018-10-25] MEDS: LORazepam 0.5 MG TAB PO PRN ×2 (01:18→22:46)
[2018-10-25] MEDS: ACCU-CHEK COMFORT CURVE STRIP VI SCH ×4 (05:20→22:45)
[2018-10-25] MEDS: InsuLIN REG 1unit/0.01ml Soln (100units/ml) SC SCH ×4 (05:20→22:00)
[2018-10-25] MEDS: LABETALOL HCL 200 MG TAB PO SCH ×3 (05:29→22:45)
[2018-10-25] MEDS: GABAPENTIN 100 MG CAP PO SCH ×3 (05:29→22:44)
--- NOTE | 2018-10-25 05:41 | NUR ---
BLOOD SUGAR DROPPED TO 55, SNACKS GIVEN AND RECHECKED 15 MINUTES LATER AND WENT UP TO 101. PATIENT IS ASYMPTOMATIC.
[2018-10-25] MEDS: MORPHINE SULFATE 4 MG/ML SYR/VIAL IM PRN (05:44)
--- NOTE | 2018-10-25 06:47 | NUR ---
CHEST TUBE MAINTAINED TO LOW CONTINUOUS WALL SUCTION, CHEST TUBE SITE DRESSING CLEAN, DRY AND INTACT, NO AIR LEAK NOTED, OUTPUT IS 50ML, SEROSANGUINOUS.
--- NOTE | 2018-10-25 07:12 | NUR ---
RT NOTE: PT BREATHING TX NOT GIVEN DUE TO MEDICATION ORDER HAVING . RN AWARE AND STATED SHE WILL CONTACT MD TO SEE IF THEY WOULD LIKE THE ORDER CONTINUED OR TO JUST HAVE IT D/C'D. WILL RETURN TO ASSESS PT WHEN AWAKE. HE DID NOT WANT TO BE BOTHERED.
--- NOTE | 2018-10-25 07:30 | NUR ---
OPENING SHIFT NOTE ASSUMED CARE OF PATIENT FROM OPERATOR AUTOMATED PROCESS RN LILY. PATIENT HAS NO S/S OF DISTRESS/SOB OR PAIN. INSTRUCTED PATIENT ON POC, PATIENT VERBALIZED UNDERSTANDING. BED IS IN LOWEST POSITION WITH SIDE RAILS RAISED X2, CHEST TUBE IS BELOW CHEST AND IS ON CONTINUOS LOW SUCTION, DRAINING SANGUINOUS FLUID, BED WHEELS LOCKED, AND CALL LIGHT WITHIN REACH. WILL CONTINUE TO MONITOR.
--- NOTE | 2018-10-25 09:05 | NUR ---
/ OFFICE WILL NOT BE TAKING CONSULTS FROM [facility] FOR RIGHT NOW. CARLI ZENG IN THE OFFICE @ 0905 Addendum: 10/25/18 at 0906 by Lynn Savage [facility] Amended: Links added.
[2018-10-25] MEDS: NICOTINE 14 MG/24HR TOPICAL PATCH TD SCH (10:00)
--- NOTE | 2018-10-25 10:15 | NUR ---
RT NOTE: ON RA SPO2 98 HR 81 RR 16. NO SIGNS OF RESPIRATORY DISTRESS NOTED. LUNG SOUNDS CLEAR T/O. STILL WAITING TO HEAR IF TXS WILL BE RENEWED OR D/C'D. WILL CONTINUE TO MONITOR.
[2018-10-25] MEDS: predniSONE 20 MG TAB PO SCH (10:32)
[2018-10-25] MEDS: PANTOPRAZOLE 40 MG TAB PO SCH (10:32)
[2018-10-25] MEDS: ASPirin-EC 81 mg tab PO SCH (10:32)
--- NOTE | 2018-10-25 19:02 | NUR ---
CLOSING SHIFT NOTE ENDORSED CARE TO LINING MARKER RN MAYUR. PATIENT HAS NO S/S OF DISTRESS/SOB OR PAIN AT THIS TIME.
--- NOTE | 2018-10-25 19:30 | NUR ---
Opening Shift Note Assumed care of patient, patient is awake and alert x4. No S/S of distress/SOB or pain. Chest tube to patients right side connected to wall suction continuous at 20. Dressing reinforced, Melinda RN at bedside for handoff. Chest tube marked at beginning of shift. Instructed on POC and to call for assist PRN, will continue to monitor for changes Q1hr and PRN.
[2018-10-26] MEDS: HYDROcodone-ACET 10/325MG TAB PO PRN ×3 (03:43→17:54)
[2018-10-26 05:00] VITALS: BP 105/59
[2018-10-26] MEDS: LABETALOL HCL 200 MG TAB PO SCH ×3 (06:00→22:07)
[2018-10-26] MEDS: GABAPENTIN 100 MG CAP PO SCH ×3 (06:23→22:07)
[2018-10-26] MEDS: InsuLIN REG 1unit/0.01ml Soln (100units/ml) SC SCH ×4 (06:23→22:00)
[2018-10-26] MEDS: ACCU-CHEK COMFORT CURVE STRIP VI SCH ×4 (06:24→22:11)
[2018-10-26] MEDS: ACETAMINOPHEN 500 MG TAB PO PRN ×2 (06:24→20:43)
--- NOTE | 2018-10-26 06:30 | NUR ---
CHEST TUBE DRAINAGE TOTAL OUTPUT FOR SHIFT IS 30ML OF DARK SANGUINEOUS FLUID FROM CHEST TUBE. CHEST TUBE REMAINS TO WALL SUCTION.
[2018-10-26] MEDS: IPRATROPIUM BROM 0.5 MG/2.5ML INH SOL NEB SCH ×4 (06:47→19:33)
[2018-10-26] MEDS: ALBUTEROL SULF 2.5 MG/0.5ML(0.5%) NEB SOLN NEB SCH ×4 (06:47→18:00)
[2018-10-26 08:25] VITALS: BP 133/68
[2018-10-26] MEDS: ASPirin-EC 81 mg tab PO SCH (09:54)
[2018-10-26] MEDS: PANTOPRAZOLE 40 MG TAB PO SCH (09:54)
[2018-10-26] MEDS: predniSONE 20 MG TAB PO SCH (09:54)
[2018-10-26] MEDS: NICOTINE 14 MG/24HR TOPICAL PATCH TD SCH (10:00)
--- NOTE | 2018-10-26 11:50 | NUR ---
DR NELSON NOTIFIED DR FLORES PRINTER FLOOR COVERING ASSISTANT WILL NOT SEE PATIENT; AWAITING RESPONSE FROM DR NELSON.
[2018-10-26 12:22] VITALS: BP 125/61
--- NOTE | 2018-10-26 14:30 | NUR ---
DR NELSON CONSULTED DR ENGLISH FOR PULMONARY ; UNIT SEC UPDATED.
--- NOTE | 2018-10-26 15:53 | NUR ---
TACHYCARDIC PATIENT ASSESSED BY DR GONZALEZ TO HAVE A HR OF 150, PATIENT ASYMPTOMATIC DENIED CHEST PAIN RESPIRATIONS RELAXED AND EVEN; PATIENT HAD PAIN 9/10 TO BILATERAL LOWER EXTREMITIES MORPHINE EVEN ORDERED. STAT EKG AND ABGS ORDERED TO BE CARRIED OUT.
--- NOTE | 2018-10-26 15:55 | NUR ---
DR NELSON NOTIFIED OF CHANGE IN PATIENT CONDITION.
--- NOTE | 2018-10-26 15:55 | NUR ---
IV INFILTRATED IV removal IV DC'd with clean sterile technique, catheter fully intact. Pressure dressing applied to site. Patient tolerated well.
[2018-10-26] MEDS: MORPHINE SULFATE 4 MG/ML SYR/VIAL IM PRN ×2 (16:03→22:08)
[2018-10-26 16:55] VITALS: BP 112/80
[2018-10-26] MEDS ORDERED: DILTIAZEM HCL 25 MG/5 ML VIAL IV ONE (17:15)
--- NOTE | 2018-10-26 17:25 | NUR ---
endorsed care to velvet toure
--- NOTE | 2018-10-26 17:30 | NUR ---
RECEIVED PT RESTING IN BED, RT LATERAL CHEST TUBE TO 20CM CONTINUOUS SUCTION, NO LEAK NOTICED, RT CHEST TUBE INCISION DRESSING CLEAN AND DRY, LT IV INFILTRATED, CALL LIGHT WITH IN REACH, FAMILY AT BED SIDE, PT DENIES ANY PAIN AT THIS TIME, WILL CONTINUE TO MONITOR PT.
--- NOTE | 2018-10-26 17:40 | NUR ---
IV insertion IV access obtained, via clean sterile technique by inserting 22 gauge catheter at LT forearm after one attempt. IV secured properly. No trauma to site. Patient tolerated well.
--- NOTE | 2018-10-26 17:50 | NUR ---
IV removal Old IV DC'd with clean sterile technique, catheter fully intact. Pressure dressing applied to site. Patient tolerated well.
--- NOTE | 2018-10-26 19:40 | NUR ---
EKG PERFORMED ON PATIENT PATIENT DENIES CHEST PAIN AND PALPITATIONS AT THIS TIME. PATIENT SITTING UP AT BEDSIDE SPEAKING TO HIS AT BEDSIDE. NO S/S OF DISTRESS NOTED.
--- NOTE | 2018-10-26 19:45 | NUR ---
AT BEDSIDE FOR PULMONARY CONSULT
[2018-10-26 19:50] VITALS: BP 143/69
--- NOTE | 2018-10-26 19:57 | NUR ---
PAGE TO REGARDING CHANGE IN PATIENTS RHYTHM, EKG COMPLETE. CALL BACK INFORMATION PROVIDED TO CONTACT MAYUR AT [phone] EXT [phone].
--- NOTE | 2018-10-26 19:59 | NUR ---
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 CURRENT VITALS BP 143/69, HR 103, O2 SAT 99%, RR 18. PATIENT DENIES CHEST PAIN AND PALPITATIONS. NEW ORDERS RECEIVED TO START AMIODARONE 400MG PO BID.
[2018-10-26] MEDS ORDERED: AMIODARONE HCL 200 MG TAB PO ONE (20:15)
[2018-10-26] MEDS: LORazepam 0.5 MG TAB PO PRN (20:42)
--- NOTE | 2018-10-26 21:10 | NUR ---
EKG PLACED IN CHART.
[2018-10-26 21:35] VITALS: BP 117/81
[2018-10-27] MEDS: IPRATROPIUM BROM 0.5 MG/2.5ML INH SOL NEB SCH ×2 (00:40→07:47)
[2018-10-27] MEDS: HYDROcodone-ACET 10/325MG TAB PO PRN ×2 (00:54→05:35)
[2018-10-27] MEDS: MORPHINE SULFATE 4 MG/ML SYR/VIAL IM PRN (04:10)
[2018-10-27] MEDS: GABAPENTIN 100 MG CAP PO SCH ×3 (05:34→20:57)
[2018-10-27] MEDS: LABETALOL HCL 200 MG TAB PO SCH ×3 (05:35→20:59)
[2018-10-27 05:41] VITALS: BP 132/75
--- NOTE | 2018-10-27 06:00 | NUR ---
RIGHT ANKLE PAIN PATIENT IS COMPLAINING OF SEVERE RIGHT ANKLE PAIN RATED 10/10. PATIENT STATES HE HAS NO RELIEF WITH BOTH MORPHINE AND NORCO. NO SWELLING, REDNESS, HEAT OR OTHER ABNORMALITY NOTED TO PATIENTS RIGHT ANKLE, FOOT, OR LOWER EXTREMITY. PULSES PALPABLE DISTALLY TO BILATERAL LOWER EXTREMITIES. PATIENT HAS A HISTORY OF NEUROPATHY. DR. NELSON NOTIFIED OF PATIENTS COMPLAINT.
[2018-10-27] MEDS: LORazepam 0.5 MG TAB PO PRN ×2 (06:01→20:57)
--- NOTE | 2018-10-27 06:06 | NUR ---
DR.SIVA SANTIAGO UPDATED ON PATIENTS COMPLAINT OF "SEVERE" RIGHT ANKLE PAIN, NOT RELIEVED BY MORPHINE AND NORCO. NEW ORDER RECEIVED FOR TORADOL 30MG IV Q6H PRN.
[2018-10-27] MEDS: KETOROLAC TROMETH 30 MG/ML 1ML VIAL IV PRN ×3 (06:22→20:30)
--- NOTE | 2018-10-27 06:22 | NUR ---
TORADOL IV ADMINISTERED PER ORDERS PATIENT REPORTING RIGHT ANKLE PAIN RATED 7/10.
--- NOTE | 2018-10-27 06:26 | NUR ---
CHEST TUBE DRAINAGE TOTAL OUTPUT FOR SHIFT IS 20ML OF DARK SANGUINEOUS FLUID FROM CHEST TUBE. CHEST TUBE REMAINS TO WALL SUCTION.
[2018-10-27] MEDS: InsuLIN REG 1unit/0.01ml Soln (100units/ml) SC SCH ×4 (06:52→21:07)
[2018-10-27] MEDS: ACCU-CHEK COMFORT CURVE STRIP VI SCH ×4 (06:52→21:06)
--- NOTE | 2018-10-27 07:45 | NUR ---
ASSUMED CARE OF PT. SITTING IN BED EATING BREAKFAST, RIGHT LATERAL CHEST TUBES TO CONTINUOS WALL SUCTION @ 20, DRAINAGE IS DARK SANGUINEOUS FLUID, DRESSING CLEAN/DRY INTACT. DENIED OF PAIN OR ANY DISCOMFORT AT THIS TIME. BED LOCKED IN THE LOWEST POSITION, CALL LIGHT WITHIN EASY REACH, WILL CONTINUE TO MONITOR.
[2018-10-27] MEDS: ALBUTEROL SULF 2.5 MG/0.5ML(0.5%) NEB SOLN NEB SCH ×2 (07:47)
[2018-10-27 08:00] VITALS: BP 120/61
[2018-10-27 09:00] VITALS: BP 120/61
[2018-10-27] MEDS: ASPirin-EC 81 mg tab PO SCH (10:51)
[2018-10-27] MEDS: predniSONE 20 MG TAB PO SCH (10:51)
[2018-10-27] MEDS: PANTOPRAZOLE 40 MG TAB PO SCH (10:51)
[2018-10-27] MEDS: AMIODARONE HCL 200 MG TAB PO SCH ×2 (10:52→20:59)
[2018-10-27] MEDS: NICOTINE 14 MG/24HR TOPICAL PATCH TD SCH (10:57)
[2018-10-27 13:00] VITALS: BP 119/78
[2018-10-27 17:00] VITALS: BP 140/79
--- NOTE | 2018-10-27 18:15 | NUR ---
DR. NELSON AT BEDSIDE.
--- NOTE | 2018-10-27 19:45 | NUR ---
Opening Shift Note Assumed care of patient, awake and alert, oriented x 4. On room air with even and unlabored respirations. No S/S of distress or SOB. Right lateral chest tube to 20cm continuous suction with dark sanguineous drainage. Bed low locked position with side rails up x 2 and call light within reach. Instructed on POC and to call for assist PRN, will continue to monitor for changes Q1hr and PRN.
--- NOTE | 2018-10-27 19:50 | NUR ---
Chest tube drainage. 50 ml output of dark sanguineous fluid.
--- NOTE | 2018-10-27 19:52 | NUR ---
CARE ENDORSED TO ANN MARIE SKINNER.
[2018-10-27 22:00] VITALS: BP 104/66
[2018-10-28] VITALS (7 sets, daily range): BP systolic 94–114; BP diastolic 53–66
[2018-10-28] MEDS ORDERED: cloNIDine HCL 0.1 MG TAB PO PRN (00:15)
[2018-10-28] MEDS ORDERED: MORPHINE SULFATE 4 MG/ML SYR/VIAL IM PRN (00:15)
[2018-10-28] MEDS ORDERED: IPRATROPIUM BROM 0.5 MG/2.5ML INH SOL NEB ONE (00:30)
[2018-10-28] MEDS ORDERED: ALBUTEROL SULF 2.5 MG/0.5ML(0.5%) NEB SOLN NEB ONE (00:30)
--- NOTE | 2018-10-28 00:56 | NUR ---
Respiratory note: AT BEDSIDE FOR SCHEDULED MED NEB TX. PT REFUSED MED NEB TX AT THIS TIME, PT WAS ANGRY. RN AND FAMILY AT BEDSIDE. PT NOTIFIED TO HAVE RT PAGED IF MED NEB TX IS NEEDED.
[2018-10-28] MEDS: HYDROcodone-ACET 10/325MG TAB PO PRN (01:38)
[2018-10-28] MEDS: LABETALOL HCL 200 MG TAB PO SCH ×4 (05:20→23:13)
[2018-10-28] MEDS: ACCU-CHEK COMFORT CURVE STRIP VI SCH ×4 (06:13→22:26)
[2018-10-28] MEDS: GABAPENTIN 100 MG CAP PO SCH ×3 (06:13→22:11)
[2018-10-28] MEDS: InsuLIN REG 1unit/0.01ml Soln (100units/ml) SC SCH ×4 (06:27→22:00)
--- NOTE | 2018-10-28 06:54 | NUR ---
Chest tube drainage. 60 ml output of dark sanguineous fluid.
--- NOTE | 2018-10-28 07:00 | NUR ---
Closing Note patient resting in bed with even and unlabored respirations, no s/s of distress. Chest tube intact with dressing CDI and to suction. Endorsed care to day shift RN.
[2018-10-28] MEDS: ALBUTEROL SULF 2.5 MG/0.5ML(0.5%) NEB SOLN NEB SCH ×4 (07:38→23:26)
[2018-10-28] MEDS: IPRATROPIUM BROM 0.5 MG/2.5ML INH SOL NEB SCH ×4 (07:39→23:26)
[2018-10-28] MEDS: AMIODARONE HCL 200 MG TAB PO SCH ×2 (09:38→22:11)
[2018-10-28] MEDS: PANTOPRAZOLE 40 MG TAB PO SCH (09:38)
[2018-10-28] MEDS: predniSONE 20 MG TAB PO SCH (09:38)
[2018-10-28] MEDS: NICOTINE 14 MG/24HR TOPICAL PATCH TD SCH (09:39)
--- NOTE | 2018-10-28 09:50 | NUR ---
Elevated temperature Dr. Nuno notified for temp 100.4, no tylenol order, waiting for call back.
[2018-10-28] MEDS ORDERED: COLCHICINE 0.6 MG CAP PO ONE (10:15)
--- NOTE | 2018-10-28 10:37 | NUR ---
Pt refused to take his medication for fever Pt stated " it is bullshit i will not take any medication until the doctor will come see me and explain to me what is going on, stupid!" pt educated on the medication but becomes so upset he said " get out of here". Addendum: 10/28/18 at 1041 by Whitney Solares RN Dr. Nuno made aware.
--- NOTE | 2018-10-28 10:42 | NUR ---
Dr. Nuno ordered to DC telemetry. Addendum: 10/28/18 at 1057 by Whitney Solares RN TELEMETRY BOX RETURNED TO [facility]
--- NOTE | 2018-10-28 11:15 | NUR ---
PT REFUSED BLOOD SUGAR CHECK PT SAID " GET OUT OF HERE AND CLOSE THE DOOR."
--- NOTE | 2018-10-28 11:23 | NUR ---
PT SEEN BY DR. ENGLISH HE ORDERED ROCEPHIN, RESPIRATORY CULTURE AND CULTURE OF FLUID FRON CHEST TUBE.
--- NOTE | 2018-10-28 11:27 | NUR ---
PT REFUSED MEDICATION PT STATED " THEY DO NOT KNOW WHAT THEY ARE DOING, I DO NOT WANT ANY MEDICINE".
[2018-10-28] MEDS: ACETAMINOPHEN 325 MG TAB PO PRN ×2 (11:48→22:18)
[2018-10-28] MEDS: cefTRIAXone 1GM/50ML D5W 50 ML IV SCH (11:49)
--- NOTE | 2018-10-28 12:01 | NUR ---
Nutrition Follow-up Notes Wt.:73.4 kg Pt's asleep, no immediate family member at bedside during rounds this morning. Pt's no signs of distress noted earlier, on Consistent Carb diet with adequate PO of 100% x 2 days per RN doc Est. Needs BW [id number] kcal (23-25 kcal/kgBW), 80-96 gms pro (1.0-1.2 gms/kgBW). Will continue to monitor pertinent labs and reassess nutrient need prn Labs: POC Gluc 131 wnl; 10/15/18 Gluc 151 H, Ca 8.0 L, Tpro 6.1 L, Alb 2.3 L Skin: Nitin scale 21, low risk, pt's right chest tube incision dry and intact per pilot. GI: Pt had 1 BM today per pilot. PES: Altered nutrition related lab values r/t current/chronic medical condition aeb elev BUN, hyperglycemia Will continue to monitor PO intake, skin status, pertinent labs and weight trend. F/u in 3 to 5 days. Rec.: 1.) Continue close supervision during meals. 2.) If Albumin level continues trending down, consider Prostat 1 pkt BID. 3.) Refer pt to CDE/RD for further nutrition education and weight monitoring upon discharge. 4.) Continue current plan of care.
--- NOTE | 2018-10-28 15:16 | NUR ---
PT SEEN BY DR. NELSON HE ORDERED TO STOP CHEST TUBE SUCTION. PER DR. NELSON HE WILL CALL DR. RUIZ TO REMOVE THE CHEST TUBE NO HEIMLICH TUBE, REPEAT CHEST XRAY TOMORROW MORNING.
[2018-10-28] MEDS: KETOROLAC TROMETH 30 MG/ML 1ML VIAL IV PRN ×2 (16:50→23:23)
--- NOTE | 2018-10-28 19:20 | NUR ---
Opening Shift Note Received report from cathy Olson RN. Assumed care of patient, awake and alert. No S/S of distress/SOB or pain. Instructed on POC and to call for assist PRN, will continue to monitor for changes Q1hr and PRN. Bed placed in lowest position, and call light within reach.
--- NOTE | 2018-10-28 22:00 | NUR ---
Dressing to incision on back left side changed. No drainage noted, josue are intact, no s/s of infection noted and well approximated.
[2018-10-28] MEDS: COLCHICINE 0.6 MG CAP PO SCH (22:12)
[2018-10-28] MEDS: LORazepam 0.5 MG TAB PO PRN (22:18)
--- NOTE | 2018-10-28 23:30 | NUR ---
RT NOTE PT REFUSED TX STATED HE DOESNT WANT TO ELEVATE HIS HEART RATE AND HE WANTS TO TRY TO GET SOME SLEEP. NO RESP DISTRESS NOTED.
[2018-10-29 05:00] VITALS: BP 127/62
[2018-10-29] MEDS: IPRATROPIUM BROM 0.5 MG/2.5ML INH SOL NEB SCH ×3 (05:47→18:17)
[2018-10-29] MEDS: ALBUTEROL SULF 2.5 MG/0.5ML(0.5%) NEB SOLN NEB SCH ×4 (05:47→21:15)
--- NOTE | 2018-10-29 06:00 | NUR ---
Patient is having shortness of breath, RT in room and patient received breathing treatment.
[2018-10-29] MEDS: GABAPENTIN 100 MG CAP PO SCH ×3 (06:07→20:17)
[2018-10-29] MEDS: ACCU-CHEK COMFORT CURVE STRIP VI SCH ×4 (06:08→22:00)
[2018-10-29] MEDS: InsuLIN REG 1unit/0.01ml Soln (100units/ml) SC SCH ×4 (06:08→22:00)
[2018-10-29] MEDS: LABETALOL HCL 200 MG TAB PO SCH ×3 (06:08→20:16)
--- NOTE | 2018-10-29 06:49 | NUR ---
Patient is resting in bed at this time, no distress noted and patient requesting a cup of coffee and tea.
[2018-10-29 08:00] VITALS: BP 107/64
[2018-10-29 09:00] VITALS: BP 133/76
--- NOTE | 2018-10-29 09:06 | NUR ---
PAGED RT FOR BREATHING TX FOR PATIENT. PATIENT IS FEELING SHORTNESS OF BREATH.
[2018-10-29] MEDS: predniSONE 20 MG TAB PO SCH (09:07)
[2018-10-29] MEDS: cefTRIAXone 1GM/50ML D5W 50 ML IV SCH (09:07)
[2018-10-29] MEDS: NICOTINE 14 MG/24HR TOPICAL PATCH TD SCH (09:07)
[2018-10-29] MEDS: LORazepam 0.5 MG TAB PO PRN ×2 (09:08→20:18)
[2018-10-29] MEDS: ALBUTEROL SULF 2.5 MG/0.5ML(0.5%) NEB SOLN NEB PRN ×3 (09:09→21:15)
[2018-10-29] MEDS: COLCHICINE 0.6 MG CAP PO SCH ×2 (09:40→20:17)
[2018-10-29] MEDS: ACETAMINOPHEN 325 MG TAB PO PRN ×2 (09:41→14:57)
[2018-10-29] MEDS: PANTOPRAZOLE 40 MG TAB PO SCH (09:42)
--- NOTE | 2018-10-29 11:30 | NUR ---
PATIENT REFUSING ACCU CHECKS. PATIENT STATES THAT HE IS NOT EATING AND DOES NOT NEED IT. PATIENT EDUCATED ON IMPORTANCE OF ACCU CHECK. PATIENT VERBALIZED UNDERSTANDING.
[2018-10-29] MEDS: AMIODARONE HCL 200 MG TAB PO SCH ×2 (11:45→20:17)
--- NOTE | 2018-10-29 11:45 | NUR ---
PAGED DR. RUIZ TO ASK ABOUT CHEST TUBE REMOVAL.
[2018-10-29 13:00] VITALS: BP 106/110
--- NOTE | 2018-10-29 16:15 | NUR ---
PATIENT REFUSING ACCU CHECKS. PATIENT STATES THAT HE IS NOT EATING AND DOES NOT NEED IT. PATIENT EDUCATED ON IMPORTANCE OF ACCU CHECK. PATIENT VERBALIZED UNDERSTANDING.
[2018-10-29 17:29] VITALS: BP 119/66
[2018-10-29] MEDS: KETOROLAC TROMETH 30 MG/ML 1ML VIAL IV PRN (20:26)
--- NOTE | 2018-10-29 21:07 | NUR ---
Dr. Torres paged RE: chest tube, per notes of Dr. Nuno d/c chest tube. Air leak on water seal noted.
--- NOTE | 2018-10-29 21:36 | NUR ---
Dr. Torres called back, informed of chest tube air leak and patient sob, ordered to put patient back on chest tube to wall suction. Advised to notify Dr. Nuno.
--- NOTE | 2018-10-29 22:31 | NUR ---
Send message to Dr. Nuno re: Chest tube air leak and sob issue and Dr. Torres's order to put patient's chest tube to wall suction. Patient now resting comfortably. Air leak lesser. Patient on 02 at 3L n/c.
[2018-10-29 22:51] VITALS: BP 125/72
--- NOTE | 2018-10-29 23:41 | NUR ---
Received message from dee Wilkins to leave patient on chest tube to wall suction.
[2018-10-30] MEDS: ALBUTEROL SULF 2.5 MG/0.5ML(0.5%) NEB SOLN NEB SCH ×4 (00:15→16:29)
[2018-10-30] MEDS: IPRATROPIUM BROM 0.5 MG/2.5ML INH SOL NEB SCH ×4 (00:15→16:29)
[2018-10-30] MEDS: ALBUTEROL SULF 2.5 MG/0.5ML(0.5%) NEB SOLN NEB PRN (03:24)
[2018-10-30] MEDS: GABAPENTIN 100 MG CAP PO SCH ×2 (04:43→14:00)
[2018-10-30] MEDS: HYDROcodone-ACET 10/325MG TAB PO PRN ×2 (04:44→09:33)
[2018-10-30] MEDS: LABETALOL HCL 200 MG TAB PO SCH ×2 (04:45→14:00)
[2018-10-30] MEDS: LORazepam 0.5 MG TAB PO PRN ×2 (04:49→11:50)
[2018-10-30 05:43] VITALS: BP 164/88
[2018-10-30] MEDS: InsuLIN REG 1unit/0.01ml Soln (100units/ml) SC SCH ×4 (06:36→22:00)
[2018-10-30] MEDS: ACCU-CHEK COMFORT CURVE STRIP VI SCH ×4 (06:36→22:00)
[2018-10-30 08:00] VITALS: BP 107/64
[2018-10-30 09:00] VITALS: BP 117/69
[2018-10-30] MEDS: cefTRIAXone 1GM/50ML D5W 50 ML IV SCH (09:18)
[2018-10-30] MEDS: PANTOPRAZOLE 40 MG TAB PO SCH (09:19)
[2018-10-30] MEDS: AMIODARONE HCL 200 MG TAB PO SCH (09:19)
[2018-10-30] MEDS: COLCHICINE 0.6 MG CAP PO SCH (09:19)
[2018-10-30] MEDS: NICOTINE 14 MG/24HR TOPICAL PATCH TD SCH (09:34)
--- NOTE | 2018-10-30 10:50 | NUR ---
PAGED RESPIRATORY FOR A BREATHING TREATMENT. PATIENT IS FEELING SOB AND RR IS 24
--- NOTE | 2018-10-30 11:40 | NUR ---
PATIENT WENT TO BATHROOM AND WHEN HE GOT BACK PATIENT WAS DIAPHORETIC AND RR IS 38. PAGED RT STAT.
--- NOTE | 2018-10-30 11:55 | NUR ---
NOTIFIED DR. NELSON ORDERED ABG AND CXR.
--- NOTE | 2018-10-30 12:50 | NUR ---
PAGED DR. NELSON ABOUT PATIENTS ABG RESULTS
--- NOTE | 2018-10-30 12:53 | NUR ---
NOTIFIED MELITA SKINNERHEALTH PHYSICIST THAT PATIENT IS IN NEED OF AN UPGRADE TO [facility].
[2018-10-30] MEDS: ACETAMINOPHEN 325 MG TAB PO PRN (13:05)
--- NOTE | 2018-10-30 16:02 | NUR ---
RESPIRATORY THERAPY AT BEDSIDE FOR BREATHING TX.
[2018-10-30 17:02] VITALS: BP 95/75
--- NOTE | 2018-10-30 17:44 | NUR ---
Patient is resting in bed with breathing rate of 22 his breathing is now uneven but patient is relaxed and shortness of breath.
--- NOTE | 2018-10-30 18:29 | NUR ---
patient taken to [facility] room 265 report given to RN
--- NOTE | 2018-10-30 18:35 | NUR ---
Admit to [facility]LOS A JAMES admitted to [facility] via gurney on cardiac nurse specialist and portable 02. Patient connected to unit monitoring and oxygen and weighed by bedscale. Patient oriented to Khushboo Delarosa, primary RN, unit, room, bed, and unit policies regarding patient care and visiting hours. Patient accompanied by spouse, all questions and concerns addressed, patient verbalized understanding.
--- NOTE | 2018-10-30 18:53 | NUR ---
FAMILY AT BEDSIDE MULTIPLE FAMILY MEMBERS AT BEDSIDE, PATIENT CONVERSING APPROPRIATELY, S/S NOTED OF DISTRESS.
[2018-10-30 20:01] VITALS: BP 113/76
[2018-10-31] VITALS (7 sets, daily range): BP systolic 89–169; BP diastolic 52–99
[2018-10-31] MEDS: COLCHICINE 0.6 MG CAP PO SCH ×3 (00:30→22:38)
[2018-10-31] MEDS: AMIODARONE HCL 200 MG TAB PO SCH ×3 (00:30→22:38)
[2018-10-31] MEDS: GABAPENTIN 100 MG CAP PO SCH ×4 (00:31→22:38)
[2018-10-31] MEDS: LABETALOL HCL 200 MG TAB PO SCH ×4 (00:33→22:38)
[2018-10-31] MEDS: ALBUTEROL SULF 2.5 MG/0.5ML(0.5%) NEB SOLN NEB SCH ×4 (00:34→18:43)
[2018-10-31] MEDS: IPRATROPIUM BROM 0.5 MG/2.5ML INH SOL NEB SCH ×4 (00:34→18:43)
[2018-10-31] MEDS: LORazepam 0.5 MG TAB PO PRN ×2 (00:34→12:32)
[2018-10-31] MEDS: ACETAMINOPHEN 325 MG TAB PO PRN (00:35)
[2018-10-31 05:32] LABS: Basophils # (auto) 0 uL; Basophils % (auto) 0.8 % (0.0-2.0); Eosinophils # (auto) 0 uL; Eosinophils % (auto) 0.1 % (0.0-7.0); Hematocrit 30.2 % (41.0-53.0); Hemoglobin 9.9 g/dL (13.5-17.5); Lymphocytes # (auto) 0.7 uL; Lymphocytes % (auto) 11.8 % (10.0-50.0); Mean Corpuscular Hemoglobin 30.4 pg (28.0-32.0); Mean Corpuscular Hgb Conc. 32.6 g/dL (32.0-36.0); Mean Corpuscular Volume 93.3 fL (80.0-100.0); Monocytes # (auto) 0.2 uL; Monocytes % (auto) 3.7 % (0.0-12.0); Neutrophils % (auto) 83.6 % (37.0-80.0); Nucleated Red Blood Cells % 0.1 %; Platelet Count (auto) 208 10^3/uL (140-450); Red Blood Cells 3.24 10^6/uL (4.5-5.90); Red Cell Distribution Width 19.7 % (11.8-14.3); White Blood Cell 5.9 10^3/uL (4.4-10.8)
[2018-10-31 05:54] LABS: Calcium 7.8 mg/dL (8.5-10.1); Potassium 4.2 mmol/L (3.5-5.1)
[2018-10-31 06:00] LABS: Albumin 1.9 g/dL (3.4-5.0); BUN/Creatinine Ratio 19.5; Bilirubin, Total 0.3 mg/dL (0.2-1.0); Total Protein 5.6 g/dL (6.4-8.2)
--- NOTE | 2018-10-31 06:24 | NUR ---
Assumed care of patient at beginning of shift. Report received was patient's chest tube was clamped, not to suction but attached to wall. called at approx 2200 to check on but did not want to wake him. At 2315 Dressing change was started, dressing removed was noted to be wet with gauze a avina color. Chest tube sites were cleansed with NS and petroleum gel gauze used around chest tube at both sites, gauze sponges used on top of petroleum gel gauze, 3x3 gauze used on top and under Y tube for support and secured with sponge tape stretched with tension. Completed at 0005, pt tolerated well. No S/S of distress. Temp noted to be 99 axillary at that time. Tylenol given with other oral medications. Currently temp 98 axillary. I was informed that the chest tube should not be clamped at any time just after I finished dressing, chest tube unclamped and hooked to suction. No sign of leak in collection box. Will continue to monitor.
[2018-10-31] MEDS: InsuLIN REG 1unit/0.01ml Soln (100units/ml) SC SCH ×4 (07:00→22:00)
[2018-10-31] MEDS: ACCU-CHEK COMFORT CURVE STRIP VI SCH ×4 (07:00→22:00)
[2018-10-31] MEDS: cefTRIAXone 1GM/50ML D5W 50 ML IV SCH (09:49)
[2018-10-31] MEDS: NICOTINE 14 MG/24HR TOPICAL PATCH TD SCH (10:00)
--- NOTE | 2018-10-31 11:10 | NUR ---
PATIENTS AT BEDSIDE, REFUSES TO FOLLOW [facility] RULES REGARDING PATIENT CARE. PATIENT IS NON COMPLIANT WITH STAYING IN BED AND HELPED PATIENT GET OOB TO USE BATHROOM WHEN RN WAS NOT IN ROOM NOR DID /PATIENT ASK. RE-EDUCATED PATIENT/ ON FACT PATIENT NEEDED TO REMAIN BEDBOUND BECAUSE OF FALLS, CHEST TUBE ECT. PATIENT AND RAISED THEIR VOICES AND WAS YELLING AT THIS RN. ALSO PATIENT WAS CUSSING AND USING INAPPROPRIATE WORDS DIRECTED TOWARDS RN AND FACT THAT,"DOCTORS HAVE NOT BEEN TO SEE PATIENT IN 5 DAYS," ACCORDING TO . RISK MANAGEMENT HERE NOW TO TALK TO AND PATIENT. DR. CORLEY CALLED DURING THIS SITUATION AND SAID HE WOULD COME AND TALK TO THE AND PATIENT. DR. NELSON MADE AWARE AND HAS DOWNGRADED PATIENT TO TELE PER PATIENT/ REQUEST.
[2018-10-31] MEDS: PANTOPRAZOLE 40 MG TAB PO SCH (11:13)
--- NOTE | 2018-10-31 11:44 | NUR ---
Respiratory note: PATIENT REFUSED 1200 MED-NEB STATING HE FELT FINE AND JUST WANTED TO REST AT THIS TIME. NO RESPIRATORY DISTRESS NOTED. SPO2 99% 9LPM OXYMIZER. PATIENT INFORMED THAT NEXT TX WOULD NOT BE UNTIL 1800, HE WAS IN AGREEMENT WITH THIS. OXYGEN TITRATED DOWN TO 6LPM OXYMIZER. BRODY GARAY MADE AWARE OF MED REFUSAL WELL O2 TITRATION.
--- NOTE | 2018-10-31 14:10 | NUR ---
Transfer FROM [facility] A transferred from [facility] via bed. Report received from Alvarado SKINNER. Patient transfered to 246B, connected to oxygen. Patient oriented to GRAYSON COCHRAN, primary RN, unit, room, bed. All questions and concerns addressed, patient verbalized understanding. Patient assessed and in stable condition. Patient has a chest tube present on right lateral side. Dressing is clean, dry and intact. Water seal is currently 1090ml full. Patient has oxymizer present.patient educated on keeping chest tube intact. patient verbalizes understanding. Addendum: 10/31/18 at 1941 by GRAYSON COCHRAN RN Correction: water seal is at the 1030ml adriana. continue to monitor
[2018-10-31] MEDS: HYDROcodone-ACET 10/325MG TAB PO PRN (14:57)
--- NOTE | 2018-10-31 19:42 | NUR ---
Chest tube is at the 1030mL adriana in the water seal. Output since 1410 is 0mL hourly shift aware of output level
--- NOTE | 2018-10-31 19:45 | NUR ---
open note assumed care of pt. upon entering room, pt and daughters at bedside. no s/s distress noted or expressed. pt updated on plan of care. chest tube in place, dressing clean dry and intact. call light in reach. no additional questions at this time. will round q1hr and as needed.
[2018-10-31] MEDS: KETOROLAC TROMETH 30 MG/ML 1ML VIAL IV PRN (21:05)
--- NOTE | 2018-10-31 23:38 | NUR ---
family called Marisol called verbalizing concern. after confirming password. updated on pt present condition. pt no complaints of pain at this time. o2 saturation 96% on 6L oxymizer. no s/s distress noted or expressed. pt call light in reach and this nurse will round on pt q1hr and as needed. pt requested that this nurse call if change of condition warranted, to which this nurse agreed. no additional questions or concerns at this time.
[2018-11-01] MEDS: IPRATROPIUM BROM 0.5 MG/2.5ML INH SOL NEB SCH ×4 (00:30→18:39)
[2018-11-01] MEDS: ALBUTEROL SULF 2.5 MG/0.5ML(0.5%) NEB SOLN NEB SCH ×4 (00:30→18:39)
--- NOTE | 2018-11-01 01:00 | NUR ---
rounds upon entering room. pt eyes closed, breathing even and unlabored. chest tube remains in place, no s/s distress noted. call light in reach. will continue to monitor.
--- NOTE | 2018-11-01 02:50 | NUR ---
round pt eyes closed, breathing even and unlabored. no s/s distress noted. chest tube in place, suction is continuous, small leak remains. MD aware. call light in reach. will continue to monitor.
[2018-11-01 05:00] VITALS: BP 105/67
--- NOTE | 2018-11-01 05:00 | NUR ---
rounds upon entering room, pt on left side. eyes closed breathing even and unlabored. chest tube in place. no s/s distress noted. call light in reach. will continue to monitor.
[2018-11-01] MEDS: LABETALOL HCL 200 MG TAB PO SCH ×3 (06:00→21:50)
[2018-11-01] MEDS: KETOROLAC TROMETH 30 MG/ML 1ML VIAL IV PRN (06:13)
--- NOTE | 2018-11-01 06:15 | NUR ---
IV pt reports "stinging" when administered toradol IV per order for pain. pt denies "pain", no redness or swelling noted at IV site. this nurse offered to DC present IV and insert new IV, to which pt replied "no im good right now, maybe later". will endorse to day shift RN. no distress noted or expressed. call light in reach, will continue to monitor.
[2018-11-01] MEDS: ACCU-CHEK COMFORT CURVE STRIP VI SCH ×5 (06:18→21:54)
[2018-11-01] MEDS: InsuLIN REG 1unit/0.01ml Soln (100units/ml) SC SCH ×4 (06:18→21:54)
[2018-11-01] MEDS: GABAPENTIN 100 MG CAP PO SCH ×3 (06:22→21:49)
--- NOTE | 2018-11-01 06:34 | NUR ---
chest tube level shows 1035cc.
--- NOTE | 2018-11-01 07:30 | NUR ---
OPENING SHIFT NOTE: Received report from NOC RNHarry. Assumed care of patient. Patient resting comfortably in bed. CT to right lateral chest to -20cm suction with slight leak noted. Pleuravac level noted at 1040ml with some spillage in next column. Patient denies pain. Bed in lowest position, rails x2 up and call light within reach. Updated patient on plan of care. Will continue to monitor.
--- NOTE | 2018-11-01 09:20 | NUR ---
IV: IV to left forearm tender when flushed, slight swelling noted to site. IV removed with catheter intact. New #22 IV started in left hand after 1 attempt.
[2018-11-01] MEDS: cefTRIAXone 1GM/50ML D5W 50 ML IV SCH (09:29)
[2018-11-01] MEDS: COLCHICINE 0.6 MG CAP PO SCH ×2 (09:47→21:49)
[2018-11-01] MEDS: NICOTINE 14 MG/24HR TOPICAL PATCH TD SCH (09:47)
[2018-11-01] MEDS: PANTOPRAZOLE 40 MG TAB PO SCH (09:47)
[2018-11-01] MEDS: AMIODARONE HCL 200 MG TAB PO SCH ×2 (09:47→21:51)
--- NOTE | 2018-11-01 11:37 | NUR ---
pt refused 1200 scheduled med neb tx. pt is sleeping, no s/s of respiratory distress. pt on 3lnc, spo2 97%. RN alfred aware of refusal. Pt aware to have rt paged if he changes his mind or sob occurs.
--- NOTE | 2018-11-01 11:40 | NUR ---
ACCUCHECK: Patient refused to have blood sugar checked. States 'it's fine'. Attempted to educated patient to inform staff if he feels his blood sugar gets too low or high. Patient again yells at staff stating 'it's fine. Why can't you understand?' Will continue to educate patient and family as needed about importance of blood glucose monitoring.
--- NOTE | 2018-11-01 13:17 | NUR ---
MD: T/C from Dr Elam regarding updated consult. states that there is nothing he could do medically and agrees with Dr Torres's recommendations for HLOC. RN updated family and patient. Will notify Dr Nuon when he rounds.
--- NOTE | 2018-11-01 14:20 | NUR ---
ANXIETY: Patient c/o feeling anxious. Will medicated as ordered with Ativan. RN also noted that patient looks pale now as compared to this am. RN asked if blood glucose can be check and patient is agreeable. BS 75. Patient refusing juice, states has some already at bedside. Will continue to monitor.
[2018-11-01] MEDS: LORazepam 0.5 MG TAB PO PRN ×2 (14:21→22:51)
--- NOTE | 2018-11-01 15:29 | NUR ---
MD: Dr Nuno updated on recommendations of Dr Torres and Dr Elam. MD at bedside updating family on plan of care to transfer to [facility]. Addendum: 11/03/18 at 1055 by DRE BOYER RN While MD at bedside, patient's family complaining of patient having frequent diarrhea and poor appetite. Family requesting to start IVF. Verbal orders received from Dr Nuno for NS @ 100ml/hr and to send stool sample for CDiff.
--- NOTE | 2018-11-01 15:30 | NUR ---
CDIFF/STOOL SAMPLE: Patient's stating that patient just had another episode of diarrhea. Explained to patient and family that stool can't be collected from trash and nursing staff will need to be called with next bowel movement to ensure it's the correct consistency and amount to send to lab. Patient's is adamant that staff should be able to collect sample right now from dirty brief/trash can because patient has already had several loose bowel movements today. Explained to patient and that patient would need to use a bedside commode with a hat to collect a sample. Patient and family aware.
[2018-11-01] MEDS: HYDROcodone-ACET 10/325MG TAB PO PRN ×2 (15:40→21:51)
--- NOTE | 2018-11-01 15:45 | NUR ---
TELE: Received phone call from [facility] in [place]. Patient currently off tele. Attempted to try and check tele box. Patient is grumpy and doesn't want to be bothered. Attempted to educate patient. Will continue to monitor.
[2018-11-01] MEDS: SODIUM CHLORIDE 0.9% 1,000 ML IV SCH (15:53)
--- NOTE | 2018-11-01 16:18 | NUR ---
ORDER AND CLINICALS FAXED TO [facility], [facility], AND [facility] REQUESTING TRANSFER TO HIGHER LEVEL OF CARE.
[2018-11-01 17:00] VITALS: BP 97/51
--- NOTE | 2018-11-01 18:55 | NUR ---
CLOSING SHIFT NOTE: Report given to NOC RNHarry. Endorsed care of patient. Patient with transfer to [facility] pending. Case management aware. Patient sleeping in bed, pain well controlled. Patient now with IVF of NS infusing at 100ml/hr. CT to right chest remains in place with output in pleuravac at level of 1060 for 20ml of output today. Slight air leak remains.
--- NOTE | 2018-11-01 19:25 | NUR ---
open note assumed care of pt. awake and alert on commode with family member at time of entering room. pt and pt denied need for any assistance at this time. no s/s distress noted or expressed. call light in reach will continue to monitor q1hr and as needed.
--- NOTE | 2018-11-01 19:30 | NUR ---
pt has right lateral chest tube in place connected to -20cm continuous suction. dressing clean dry and intact; small air leak of which MD is aware, persists. present level of 1050cc dark black appearing drainage present. no sob noted. no s/s distress noted or expressed. call light in reach, will round q1hr and as needed.
--- NOTE | 2018-11-01 20:27 | NUR ---
progress spoke with pt and daughter. pt eyes closed breathing even and unlabored at this time. family updated on plan of care. pt family made aware that orders for transfer have been placed and progress will be updated as new developments occur. cdiff stool collected and will be sent for eval. no additional questions at this time. pt call light in reach. will round q1hr and as needed. no s/s distress noted at this time.
--- NOTE | 2018-11-01 21:57 | NUR ---
pt remains at bedside. made aware of visiting hours, to which she responded "my daughter is a few minutes away". pt no distress noted. call light in reach will continue to monitor.
[2018-11-01 22:00] VITALS: BP 128/72
--- NOTE | 2018-11-01 22:54 | NUR ---
pt refused BP recheck. HR shows 74bpm on monitor. call light in reach will round q1hr and as needed.
--- NOTE | 2018-11-02 00:08 | NUR ---
received call from Augusta minaya from [employer] coordinator. this nurse provided pt current status, present vitals. [facility] stated Augusta Minaya physician would attempt to contact DR Nuno for further information on pt. fax number given [phone]
--- NOTE | 2018-11-02 02:22 | NUR ---
rounds pt eyes closed and breathing is even and unlabored upon entering room. no distress noted. call light in reach. will round q1hr and continue to monitor.
[2018-11-02] MEDS: SODIUM CHLORIDE 0.9% 1,000 ML IV SCH ×2 (03:33→15:27)
[2018-11-02 05:00] VITALS: BP 116/65
[2018-11-02] MEDS: GABAPENTIN 100 MG CAP PO SCH ×2 (06:05→14:00)
[2018-11-02] MEDS: LABETALOL HCL 200 MG TAB PO SCH ×2 (06:07→14:00)
[2018-11-02] MEDS: HYDROcodone-ACET 10/325MG TAB PO PRN ×2 (06:08→17:01)
--- NOTE | 2018-11-02 06:08 | NUR ---
chest tube 1070cc noted
[2018-11-02] MEDS: ACCU-CHEK COMFORT CURVE STRIP VI SCH ×3 (06:38→17:00)
[2018-11-02] MEDS: InsuLIN REG 1unit/0.01ml Soln (100units/ml) SC SCH ×3 (06:38→17:00)
--- NOTE | 2018-11-02 06:39 | NUR ---
pt refused finger stick despite education on importance of consistent glucose monitoring.
--- NOTE | 2018-11-02 07:30 | NUR ---
OPENING SHIFT NOTE: Received report from NOC RNHarry. Assumed care of patient. Patient resting comfortably in bed. CT to right lateral chest to -20cm suction with slight leak noted. Pleuravac level noted at 1090ml with some spillage in next column. Patient denies pain. Bed in lowest position, rails x2 up and call light within reach. Patient awaiting on transfer to [facility] with an accepting facility. Updated patient on plan of care. Will continue to monitor.
[2018-11-02] MEDS: IPRATROPIUM BROM 0.5 MG/2.5ML INH SOL NEB SCH ×3 (07:36→11:46)
[2018-11-02] MEDS: ALBUTEROL SULF 2.5 MG/0.5ML(0.5%) NEB SOLN NEB SCH ×3 (07:37→11:46)
[2018-11-02 09:38] VITALS: BP 111/57
--- NOTE | 2018-11-02 09:46 | NUR ---
SPOKE WITH [facility].. PATIENT HAS BEEN ACCEPTED ALL THEY ARE WAITING ON IS THE RESULTS FROM THE C-DIFF. WILL FAX RESULTS WHEN AVAILABLE.
[2018-11-02] MEDS: NICOTINE 14 MG/24HR TOPICAL PATCH TD SCH (10:00)
[2018-11-02] MEDS: PANTOPRAZOLE 40 MG TAB PO SCH (10:11)
[2018-11-02] MEDS: AMIODARONE HCL 200 MG TAB PO SCH (10:11)
[2018-11-02] MEDS: COLCHICINE 0.6 MG CAP PO SCH (10:11)
--- NOTE | 2018-11-02 10:18 | NUR ---
[facility] 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 Results will be available the next day. Informed ELEUTERIO Ball.
--- NOTE | 2018-11-02 10:41 | NUR ---
ADVISED [facility] THAT C-DIFF RESULTS WON'T BE AVAILABLE UNTIL 11-03-18. THEY WILL STILL BE ABLE TO TRANSFER PATIENT AFTER RESULTS RECEIVED AND FAXED TO THEM.
--- NOTE | 2018-11-02 11:46 | NUR ---
Respiratory note: SCHEDULED MEDNEB TX NOT GIVEN, PT REFUSED. HR 71, RR 18, POX 92% ON 3LNC. BREATH SOUNDS DIMINISHED THROUGHOUT. NO S/S OF RESPIRATORY DISTRESS NOTED AT THIS TIME. PT ADVISED TO CALL RT IF FEELING SOB/DISTRESS.
[2018-11-02 12:58] VITALS: BP 113/62
--- NOTE | 2018-11-02 14:50 | NUR ---
FAMILY: T/C from patient's , Marisol. requesting that daughter, Rhonda, be contacted regarding transfer at [phone].
--- NOTE | 2018-11-02 14:55 | NUR ---
TRANSFER: S/W ELEUTERIO [facility]. [facility] and has a bed available. ELEUTERIO is working on arranging transportation via [facility]. RN made patient, family and Dr Nuno aware. Approximate pick up driver at 1800.
--- NOTE | 2018-11-02 14:56 | NUR ---
PATIENT HAS BEEN ACCEPTED AT [facility] [address] ROOM 6 BED 1. 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 NUMBER FOR REPORT IS [phone].
[2018-11-02] MEDS: LORazepam 0.5 MG TAB PO PRN (16:32)
[2018-11-02 16:45] VITALS: BP 137/76
--- NOTE | 2018-11-02 17:16 | NUR ---
REPORT: Called report to [facility] to [place]. Informed her scheduled milk pickup truck driver is at 1800.
--- NOTE | 2018-11-02 17:40 | NUR ---
DISCHARGE: Discharge instructions given as ordered. Encourage to follow up with PMD as instructed. All questions and concerns addressed. Patient verbalized understanding. Medication reconciliation form completed and copy given to patient. Telemetry unit returned to [place]. Patient taken to ambulance ([facility]) via gurney with all personal belongings, accompanied by staff and family member. No distress noted at time of departure.
--- NOTE | 2018-11-02 18:31 | NUR ---
TRANSPORTATION: [facility] at bedside to product picker patient. Hand off given. Patient leaving with IV to right hand #[address] to right lateral chest to water seal.
== END 2018-11-02 18:48 | disposition short-term general hospital (02) | DRG 164 ==
LOC: ER 23:26 → TELE 09-27 05:25 → TELE-WESTW 09-27 09:00 → OVERFLOW 10-10 23:26 → TELE-WESTW 10-11 15:45 → WEST WING 10-20 17:00 → TELE-WESTW 10-26 21:58 → WEST WING 10-28 19:05 → DOU IN ICU 10-30 18:28 → TELE-EAST 10-31 14:09
PROVIDERS: ADMIT Nurse Practitioner Family; ATTEND Internal Medicine Cardiovascular Disease
PROC: 0W9940Z Drainage of Right Pleural Cavity with Drainage Device, Percutaneous Endoscopic Approach (ICD-10-PCS; principal; 2018-09-29 08:25)
PROC: 0BBN0ZZ Excision of Right Pleura, Open Approach (ICD-10-PCS; 2018-10-10)
DX: J93.0 Spontaneous tension pneumothorax (principal); J44.1 Chronic obstructive pulmonary disease with (acute) exacerbation; E87.1 Hypo-osmolality and hyponatremia; I10 Essential (primary) hypertension; J93.82 Other air leak; F17.200 Nicotine dependence, unspecified, uncomplicated; Z79.899 Other long term (current) drug therapy; Z90.2 Acquired absence of lung [part of]; Z91.19 Patient's noncompliance with other medical treatment and regimen
CPT/HCPCS: 36415; 36600; 71045; 71046; 71260; 80048; 80053; 82805; 82962; 83605; 83735; 83880; 84484; 85007; 85025; 85027; 85379; 85610; 85730; 86850; 86900; 86901; 86920; 87040; 87070; 87081; 87205; 87493; 93005; 94640; 96361; 96365; 96375; A6257; G0378; J0690; J0696; J1100; J1815; J1885; J2001; J2250; J2405; J2543; J2704; J3490; J7060

== ENCOUNTER → 2018-12-23 | Outpatient (CLI) | payer BC ==
[~2018-12-23] VITALS: Ht 1 cm; Wt 0.5 kg
[~2018-12-23] MED LIST changes: +ASPI81TA27 PO; +CYANOCOBALAMIN (B-12) 1000 MCG/1 ML VIAL IM ONE; +CYANOCOBALAMIN (B-12) 1000 MCG/1 ML VIAL ONE; +GENTAMICIN SULF 80 MG/2 ML VIAL ONE; +GENTAMICIN SULFATE 160 MG in D5W 5% 100 ML IV ONE; +MULTIPLE VITAMIN 10 ML, MAGNESIUM SULF SDV 50% 8 MEQ, THIAMINE INJ 100 MG in SODIUM CHL... IV SCH; +MVI in SODIUM CHLORIDE 0.9% 1,010 ML ONE; +VANCOMYCIN 1GM/250ML 250 ML IV ONE
[2018-12-23 13:30] VITALS: BP 127/66
--- NOTE | 2018-12-23 13:30 | NUR ---
CHF PT ARRIVED TO [facility] CLINIC ALERT ORIENTED 0 DISTRESS V/S OBTAINED UPDATED MD ON PATIENT CONDITION
--- NOTE | 2018-12-23 13:45 | NUR ---
Clinic Provider Clinic Provider into see pt with new orders received and carried out.
--- NOTE | 2018-12-23 14:15 | NUR ---
IV insertion IV access obtained, via clean sterile technique by inserting 22 gauge catheter at after attempt(s). IV secured properly. No trauma to site. Patient tolerated procedure well.
--- NOTE | 2018-12-23 16:00 | NUR ---
WOUND CARE PT CHEST TUBE SITE ON RIGHT SIDE WEEPING . RECENTLY REMOVED AT THE HOSPITAL. WEEMS DRAINAGE . CLEANSED SIGHT WITH NS AND CHLORAPRE. APPLIED ABDOMEN PAD AND METAPOR TAPE. PT TOLERATED WELL
--- NOTE | 2018-12-23 16:20 | NUR ---
IV removal IV DC'd with sterile technique, catheter fully intact. Pressure dressing applied to site. Patient tolerated procedure well. Discharged with aftercare instructions per MD. NOTE:
--- NOTE | 2018-12-23 16:20 | NUR ---
Discharge Instructions See e-MAR for any mediations given with this visit. Patient education given on disease process. Patient verbalized understanding. Previous labs reviewed. Patient discharged in stable condition with after care instructions and follow up appointment. MEDICATIONS 1433 VANCOMYCING 1 GRAM IVPB X 1 1410 BANANA BAG 500 ML IV X 1 1528 GENATMICIN 160MG IV X 1 1720 VITAMIN B12 1000 MCG IM RIGHHT DELTOID
[2018-12-23 16:30] VITALS: BP 141/54
--- NOTE | 2019-03-13 16:02 | NUR ---
LATE ENTRY FOR 12/23/18 [facility] IN [place] [id number] ADMIN BY NITA SKINNER VANCO [id number] ADMIN BY NITA SKINNER GENTAMICIN [id number] ADMIN BY NITA SKINNER
== END | disposition home or self-care (01) ==
LOC: Rad HDHVI 14:10
PROVIDERS: ATTEND Internal Medicine Cardiovascular Disease
DX: T81.40XA Infection following a procedure, unspecified, initial encounter (principal); E86.0 Dehydration; R53.83 Other fatigue; R53.81 Other malaise; I11.9 Hypertensive heart disease without heart failure; I70.0 Atherosclerosis of aorta; J44.9 Chronic obstructive pulmonary disease, unspecified; J90 Pleural effusion, not elsewhere classified; Z87.891 Personal history of nicotine dependence; Z79.899 Other long term (current) drug therapy; Z90.2 Acquired absence of lung [part of]
CPT/HCPCS: 71046; 96365; 96366; 96368; 96372; G0463; J1580; J3370; J3411; J3420; J3475; 96360; 96361

== ENCOUNTER → 2019-01-04 | Outpatient (CLI) | payer BC ==
[~2019-01-04] MED LIST changes: -CYANOCOBALAMIN (B-12) 1000 MCG/1 ML VIAL IM ONE; -CYANOCOBALAMIN (B-12) 1000 MCG/1 ML VIAL ONE; -GENTAMICIN SULF 80 MG/2 ML VIAL ONE; -GENTAMICIN SULFATE 160 MG in D5W 5% 100 ML IV ONE; -MULTIPLE VITAMIN 10 ML, MAGNESIUM SULF SDV 50% 8 MEQ, THIAMINE INJ 100 MG in SODIUM CHL... IV SCH; -MVI in SODIUM CHLORIDE 0.9% 1,010 ML ONE; -VANCOMYCIN 1GM/250ML 250 ML IV ONE
[2019-01-04 16:15] LABS: Calcium 8.7 mg/dL (8.5-10.1)
[2019-01-04 16:28] LABS: Basophils # (auto) 0.1 uL; Basophils % (auto) 0.7 % (0.0-2.0); Hematocrit 33.7 % (41.0-53.0); Monocytes # (auto) 0.9 uL; Nucleated Red Blood Cells % 0.1 %
[2019-01-04 16:31] LABS: Eosinophils # (auto) 0.1 uL; Eosinophils % (auto) 1.4 % (0.0-7.0); Hemoglobin 10.4 g/dL (13.5-17.5); Lymphocytes # (auto) 1.7 uL; Lymphocytes % (auto) 15.5 % (10.0-50.0); Mean Corpuscular Hemoglobin 26.5 pg (28.0-32.0); Mean Corpuscular Hgb Conc. 30.8 g/dL (32.0-36.0); Mean Corpuscular Volume 85.8 fL (80.0-100.0); Neutrophils % (auto) 74.4 % (37.0-80.0); Platelet Count (auto) 633 10^3/uL (140-450); Red Blood Cells 3.92 10^6/uL (4.5-5.90); White Blood Cell 10.7 10^3/uL (4.4-10.8)
[2019-01-04 16:50] LABS: Red Cell Distribution Width 20.4 % (11.8-14.3)
== END | disposition home or self-care (01) ==
LOC: Rad HDHVI 11:50
PROVIDERS: ATTEND Internal Medicine Cardiovascular Disease
DX: I70.0 Atherosclerosis of aorta (principal); D64.9 Anemia, unspecified; I11.0 Hypertensive heart disease with heart failure; I50.9 Heart failure, unspecified; J94.8 Other specified pleural conditions
CPT/HCPCS: 36415; 71046; 80048; 85025

== ENCOUNTER → 2020-07-10 | Outpatient (CLI) | payer BC ==
[~2020-07-10] MED LIST changes: +ASPI-543 PO; -ASPI81TA27 PO
== END | disposition home or self-care (01) ==
LOC: Rad HDHVI 14:10
PROVIDERS: ATTEND Internal Medicine Cardiovascular Disease
DX: I50.22 Chronic systolic (congestive) heart failure (principal); R06.02 Shortness of breath
CPT/HCPCS: 93306

== ENCOUNTER → 2022-05-29 | Outpatient (CLI) | payer BC | END | disposition home or self-care (01) | LOC: Rad HDHVI 15:45 | PROVIDERS: ATTEND Internal Medicine Cardiovascular Disease | DX: I10 Essential (primary) hypertension (principal); R00.2 Palpitations | CPT/HCPCS: 93306 ==